=== PATIENT | male | born 1950 | race Caucasian/White ===

== ENCOUNTER 2021-05-06 22:11 | Observation (INO) | payer OTHER ==
[2021-05-07 01:00] LABS: BASO % 0.7 % (0-2.0); EOS % 2.6 % (0-4.5); HEMATOCRIT 27.2 % (35.4-49); HEMOGLOBIN 9.7 GM/dL (11.7-16.9); LYMPH % 16.8 % (8-40); MCH 31.5 pg (25.7-33.7); MCHC 35.7 g/dl (32.0-35.9); MEAN CELL VOLUME 88.2 fl (80-96); MEAN PLT VOLUME 7.3 fl (7.5-11.1); MONO % 11.4 % (3.8-10.2); NEUT % 68.5 % (42.8-82.8); PLATELET COUNT 177 10^3/uL (134-434); RBC 3.08 M/mm3 (4.00-5.60); RDW 14.5 % (11.9-15.9)
[2021-05-07 01:16] LABS: CHLORIDE 99 mmol/L (98-107); SODIUM 134 mmol/L (136-145)
[2021-05-07 01:18] LABS: CALCIUM 9.2 mg/dL (8.5-10.1)
[2021-05-07 01:19] LABS: ALBUMIN 3.3 g/dl (3.4-5.0); ANION GAP 11 MMOL/L (8-16); BLOOD UREA NITROGEN 52.9 mg/dL (7-18); CO2 24 mmol/L (21-32); GLUCOSE,RANDOM 97 mg/dL (74-106); MAGNESIUM 2.6 mg/dL (1.8-2.4)
[2021-05-07] MEDS ORDERED: DEXTROSE 50%-WATER - 25 GM/50 ML VIAL IVPUSH ONE (01:21)
[2021-05-07] MEDS ORDERED: INSULIN REGULAR HUMAN 100 UNITS/ML *VIAL IVPUSH ONE (01:21)
[2021-05-07 01:22] LABS: SGOT/AST 9 U/L (15-37); SGPT/ALT 18 U/L (13-61)
[2021-05-07 01:24] LABS: BILIRUBIN,TOTAL 0.4 mg/dL (0.2-1); TOT PROT 6.7 g/dl (6.4-8.2)
[2021-05-07 01:25] LABS: ALK PHOS 64 U/L (45-117)
[2021-05-07] MEDS ORDERED: DEXTROSE 50%-WATER 25 GM/50 ML DISP.SYRIN ONE (01:33)
[2021-05-07] MEDS ORDERED: INSULIN REGULAR HUMAN 100 UNITS/ML *VIAL ONE (01:34)
[2021-05-07 01:44] LABS: CREATININE 10.5 mg/dL (0.55-1.3)
[2021-05-07 02:51] LABS: INR 0.98 (0.83-1.09); PROTHROMBIN TIME (PATIENT) 12.1 SEC (9.7-13.0)
[2021-05-07 02:54] LABS: ACTIVATED PTT 31.5 SECONDS (25.2-36.5)
[2021-05-07] MEDS ORDERED: FUROSEMIDE 40 MG TABLET (FP) ONE (05:55)
[2021-05-07] MEDS ORDERED: TORSEMIDE 20 MG TABLET (FP) PO SCH (06:00)
[2021-05-07] MEDS: PRIMIDONE 50 MG TABLET PO SCH ×3 (06:16→18:50)
[2021-05-07 06:20] LABS: BASO % 0.8 % (0-2.0); EOS % 2.7 % (0-4.5); HEMATOCRIT 26.7 % (35.4-49); HEMOGLOBIN 9.6 GM/dL (11.7-16.9); LYMPH % 15.9 % (8-40); MCH 31.6 pg (25.7-33.7); MCHC 35.9 g/dl (32.0-35.9); MEAN PLT VOLUME 7.6 fl (7.5-11.1); MONO % 10.8 % (3.8-10.2); NEUT % 69.8 % (42.8-82.8); PLATELET COUNT 173 10^3/uL (134-434); RBC 3.03 M/mm3 (4.00-5.60); RDW 14.3 % (11.9-15.9); WHITE BLOOD COUNT 5.7 K/mm3 (4.0-10.0)
[2021-05-07 06:38] LABS: CHLORIDE 100 mmol/L (98-107); SODIUM 133 mmol/L (136-145)
[2021-05-07 06:40] LABS: ANION GAP 12 MMOL/L (8-16); CALCIUM 8.9 mg/dL (8.5-10.1); CO2 21 mmol/L (21-32)
[2021-05-07 06:41] LABS: BLOOD UREA NITROGEN 54.9 mg/dL (7-18); GLUCOSE,RANDOM 89 mg/dL (74-106)
[2021-05-07 06:58] LABS: CREATININE 10.8 mg/dL (0.55-1.3)
[2021-05-07 08:22] LABS: EPI CELLS 3 /uL (0-25.1); HYALINE CASTS 56 /uL (0-3.1); PH,URINE 8.5 (5.0-8.0); URINE APPEARANCE CLEAR; URINE BACTERIA 2 /uL (0-1359); URINE BILIRUBIN NEGATIVE (NEGATIVE); URINE COLOR YELLOW; URINE GLUCOSE (UA) TRACE (NEGATIVE); URINE KETONE NEGATIVE (NEGATIVE); URINE LEUK ESTERASE TRACE (NEGATIVE); URINE NITRITE NEGATIVE (NEGATIVE); URINE PROTEIN 3+ (NEGATIVE); URINE RBC 6569 /uL (0-23.9); URINE UROBILINOGEN 0.2 mg/dL (0.2-1.0); URINE WBC 24 /uL (0-25.8)
[2021-05-07] MEDS: CARVEDILOL 6.25 MG TABLET (FP) PO SCH ×2 (09:01→21:31)
[2021-05-07] MEDS: TAMSULOSIN HCL 0.4 MG CAP PO SCH ×2 (09:01→21:30)
[2021-05-07] MEDS: CALCIUM ACETATE 667 MG CAPSULE (FP) PO SCH ×3 (09:01→17:10)
[2021-05-07 09:48] VITALS: BMI 31.6
[2021-05-07] MEDS ORDERED: SODIUM CHLORIDE 250 ML IV PRN ×2 (11:07→11:08)
[2021-05-07] MEDS: TORSEMIDE 20 MG TABLET (FP) PO SCH (11:15)
[2021-05-07] MEDS ORDERED: PT OWN MED DRAWER 7, Y5N ONE ×2 (12:32→17:07)
[2021-05-07] MEDS: LISINOPRIL 10 MG TABLET PO SCH (17:09)
[2021-05-07] MEDS ORDERED: MELATONIN 5 MG TABLETS PO SCH (22:00)
[2021-05-08] MEDS ORDERED: PT OWN MED DRAWER 7, Y5N ONE ×3 (05:38→17:00)
[2021-05-08] MEDS: PRIMIDONE 50 MG TABLET PO SCH ×3 (06:00→17:02)
[2021-05-08] MEDS: CALCIUM ACETATE 667 MG CAPSULE (FP) PO SCH ×3 (08:12→17:02)
[2021-05-08] MEDS: TAMSULOSIN HCL 0.4 MG CAP PO SCH (09:11)
[2021-05-08] MEDS: TORSEMIDE 20 MG TABLET (FP) PO SCH (09:11)
[2021-05-08] MEDS: LISINOPRIL 10 MG TABLET PO SCH (09:11)
[2021-05-08] MEDS: CARVEDILOL 6.25 MG TABLET (FP) PO SCH (09:11)
[2021-05-08] MEDS ORDERED: SODIUM CHLORIDE 250 ML IV PRN (12:23)
[2021-05-08 13:30] VITALS: BP 141/67; PULSE 60; TEMP 98.3
[2021-05-08 14:11] LABS: HEMOGLOBIN 9.3 GM/dL (11.7-16.9); MCH 31.1 pg (25.7-33.7); MCHC 34.6 g/dl (32.0-35.9); MEAN CELL VOLUME 89.9 fl (80-96); MEAN PLT VOLUME 7.4 fl (7.5-11.1); PLATELET COUNT 181 10^3/uL (134-434); RDW 14.2 % (11.9-15.9); WHITE BLOOD COUNT 4.5 K/mm3 (4.0-10.0)
[2021-05-08 14:32] LABS: CALCIUM 8.5 mg/dL (8.5-10.1)
[2021-05-08 14:35] LABS: CREATININE 7.2 mg/dL (0.55-1.3)
[2021-05-09] MEDS ORDERED: EPOETIN ALFA-EPBX 10,000 UNIT/ML VIAL IVPUSH ONE (08:00)
== END 2021-05-08 18:49 | disposition home or self-care (01) ==
LOC: JER 22:11 → JERBED 05-07 02:51 → J6S 05-07 08:18
PROVIDERS: ADMIT Internal Medicine; ATTEND Internal Medicine
DX: I13.2 Hypertensive heart and chronic kidney disease with heart failure and with stage 5 chronic kidney disease, or end stage renal disease (principal); G25.2 Other specified forms of tremor; N40.0 Benign prostatic hyperplasia without lower urinary tract symptoms; Z99.2 Dependence on renal dialysis; Z29.9 Encounter for prophylactic measures, unspecified; E66.9 Obesity, unspecified; Z68.31 Body mass index [BMI] 31.0-31.9, adult; N18.6 End stage renal disease; R31.9 Hematuria, unspecified; Z87.448 Personal history of other diseases of urinary system; E87.5 Hyperkalemia; D64.9 Anemia, unspecified; Z86.79 Personal history of other diseases of the circulatory system; I50.9 Heart failure, unspecified
CPT/HCPCS: 36415; 74178-TC; 76775-TC; 76856-TC; 80048; 80053; 81003; 82607; 82728; 82746; 83036; 83540; 83550; 83735; 85025; 85027; 85610; 85730; 86803; 86850; 86900; 86901; 87086; 87340; 93005; 93010; 99285-25; C9803; G0378; Q9967; U0003; U0005

== ENCOUNTER 2021-06-10 22:01 | Inpatient (IN) | payer OTHER ==
[2021-06-10] MEDS ORDERED: LIDOCAINE HCL 2% JELLY 10 ML CARTRIDGE ONE (23:00)
[2021-06-10 23:33] LABS: EOS % 3.8 % (0-4.5); HEMATOCRIT 24.6 % (35.4-49); HEMOGLOBIN 8.5 GM/dL (11.7-16.9); LYMPH % 16.6 % (8-40); MCH 29.6 pg (25.7-33.7); MCHC 34.5 g/dl (32.0-35.9); MEAN PLT VOLUME 7.1 fl (7.5-11.1); MONO % 11.8 % (3.8-10.2); NEUT % 66.8 % (42.8-82.8); PLATELET COUNT 199 10^3/uL (134-434); RBC 2.87 M/mm3 (4.00-5.60); WHITE BLOOD COUNT 5.5 K/mm3 (4.0-10.0)
[2021-06-10 23:39] LABS: PROTHROMBIN TIME (PATIENT) 12.1 SEC (9.7-13.0)
[2021-06-10 23:41] LABS: ACTIVATED PTT 29.8 SECONDS (25.2-36.5)
[2021-06-10 23:48] LABS: EPI CELLS 35 /uL (0-25.1); HYALINE CASTS 1 /uL (0-3.1); URINE APPEARANCE CLOUDY; URINE BACTERIA 74 /uL (0-1359); URINE BILIRUBIN NEGATIVE (NEGATIVE); URINE COLOR YELLOW; URINE GLUCOSE (UA) 1+ (NEGATIVE); URINE KETONE NEGATIVE (NEGATIVE); URINE LEUK ESTERASE 2+ (NEGATIVE); URINE NITRITE NEGATIVE (NEGATIVE); URINE PROTEIN 3+ (NEGATIVE); URINE RBC 1879 /uL (0-23.9); URINE UROBILINOGEN 0.2 mg/dL (0.2-1.0); URINE WBC 305 /uL (0-25.8)
[2021-06-10 23:54] LABS: CHLORIDE 101 mmol/L (98-107); SODIUM 137 mmol/L (136-145)
[2021-06-10 23:58] LABS: ALBUMIN 3.1 g/dl (3.4-5.0); ANION GAP 9 MMOL/L (8-16); BLOOD UREA NITROGEN 50.1 mg/dL (7-18); CO2 27 mmol/L (21-32); GLUCOSE,RANDOM 137 mg/dL (74-106)
[2021-06-11 00:01] LABS: SGOT/AST 13 U/L (15-37); SGPT/ALT 17 U/L (13-61)
[2021-06-11 00:02] LABS: BILIRUBIN,TOTAL 0.4 mg/dL (0.2-1); TOT PROT 6.6 g/dl (6.4-8.2)
[2021-06-11 00:03] LABS: ALK PHOS 79 U/L (45-117)
[2021-06-11 00:12] LABS: CREATININE 9.2 mg/dL (0.55-1.3)
[2021-06-11] MEDS ORDERED: CEFTRIAXONE 1,500 MG in DEXTROSE 5%-WATER - 50 ML IVPB ONE (01:19)
[2021-06-11] MEDS ORDERED: CARVEDILOL 6.25 MG TABLET (FP) PO ONE (05:33)
[2021-06-11] MEDS ORDERED: LISINOPRIL 10 MG TABLET PO ONE (05:34)
[2021-06-11 05:42] VITALS: BMI 30.4
[2021-06-11] MEDS ORDERED: SODIUM CHLORIDE 250 ML IV PRN (08:49)
[2021-06-11] MEDS ORDERED: cefTRIAXone SODIUM 1 GM VIAL ONE (08:55)
[2021-06-11] MEDS ORDERED: DEXTROSE 5%-WATER - 50 ML IVPB ONE (08:56)
[2021-06-11] MEDS: CARVEDILOL 6.25 MG TABLET (FP) PO SCH ×3 (09:07→21:11)
[2021-06-11] MEDS: LISINOPRIL 10 MG TABLET PO SCH ×2 (09:08→11:00)
[2021-06-11] MEDS: CALCIUM ACETATE 667 MG CAPSULE (FP) PO SCH ×3 (09:08→18:11)
[2021-06-11] MEDS: CEFTRIAXONE 1 GM in DEXTROSE 5%-WATER - 50 ML IVPB SCH (09:08)
[2021-06-11 09:54] LABS: BASO % 0.8 % (0-2.0); HEMATOCRIT 27.4 % (35.4-49); HEMOGLOBIN 9.5 GM/dL (11.7-16.9); LYMPH % 8.9 % (8-40); MCH 30.3 pg (25.7-33.7); MCHC 34.7 g/dl (32.0-35.9); MEAN CELL VOLUME 87.3 fl (80-96); MEAN PLT VOLUME 7.7 fl (7.5-11.1); MONO % 8.7 % (3.8-10.2); NEUT % 79.6 % (42.8-82.8); PLATELET COUNT 212 10^3/uL (134-434); RBC 3.14 M/mm3 (4.00-5.60); RDW 14.5 % (11.9-15.9); WHITE BLOOD COUNT 7.9 K/mm3 (4.0-10.0)
[2021-06-11] MEDS ORDERED: TAMSULOSIN HCL 0.4 MG CAP PO SCH (10:00)
[2021-06-11] MEDS ORDERED: TORSEMIDE 20 MG TABLET (FP) PO SCH (10:00)
[2021-06-11 10:18] LABS: CHLORIDE 101 mmol/L (98-107); SODIUM 135 mmol/L (136-145)
[2021-06-11 10:22] LABS: BLOOD UREA NITROGEN 53.6 mg/dL (7-18)
[2021-06-11 10:23] LABS: CALCIUM 8.8 mg/dL (8.5-10.1); GLUCOSE,RANDOM 112 mg/dL (74-106)
[2021-06-11 10:24] LABS: ANION GAP 13 MMOL/L (8-16); CO2 22 mmol/L (21-32)
[2021-06-11 10:31] LABS: CREATININE 9.9 mg/dL (0.55-1.3)
[2021-06-11] MEDS: TAMSULOSIN HCL 0.4 MG CAP PO SCH (21:10)
[2021-06-11] MEDS: MELATONIN 5 MG TABLETS PO SCH (21:11)
[2021-06-11] MEDS: TORSEMIDE 20 MG TABLET (FP) PO SCH (21:11)
[2021-06-12] MEDS: TORSEMIDE 20 MG TABLET (FP) PO SCH ×3 (07:33→10:38)
[2021-06-12 08:05] LABS: BASO % 0.9 % (0-2.0); EOS % 2.6 % (0-4.5); HEMATOCRIT 23.4 % (35.4-49); HEMOGLOBIN 8.2 GM/dL (11.7-16.9); LYMPH % 15.2 % (8-40); MEAN CELL VOLUME 85.7 fl (80-96); MEAN PLT VOLUME 7.2 fl (7.5-11.1); MONO % 13.3 % (3.8-10.2); PLATELET COUNT 170 10^3/uL (134-434); RBC 2.73 M/mm3 (4.00-5.60); RDW 14.6 % (11.9-15.9); WHITE BLOOD COUNT 5.5 K/mm3 (4.0-10.0)
[2021-06-12] MEDS: CALCIUM ACETATE 667 MG CAPSULE (FP) PO SCH ×3 (08:24→17:24)
[2021-06-12] MEDS: TAMSULOSIN HCL 0.4 MG CAP PO SCH ×2 (08:24→21:03)
[2021-06-12 08:25] LABS: BLOOD UREA NITROGEN 32.8 mg/dL (7-18); CALCIUM 8.7 mg/dL (8.5-10.1)
[2021-06-12 08:28] LABS: CREATININE 6.7 mg/dL (0.55-1.3)
[2021-06-12] MEDS ORDERED: DEXTROSE 5%-WATER - 50 ML IVPB ONE (10:34)
[2021-06-12] MEDS ORDERED: PT OWN MED DRAWER 7, Y5N ONE (10:34)
[2021-06-12] MEDS ORDERED: cefTRIAXone SODIUM 1 GM VIAL ONE (10:34)
[2021-06-12] MEDS: CARVEDILOL 6.25 MG TABLET (FP) PO SCH ×2 (10:37→21:03)
[2021-06-12] MEDS: CEFTRIAXONE 1 GM in DEXTROSE 5%-WATER - 50 ML IVPB SCH (10:38)
[2021-06-12] MEDS: LISINOPRIL 10 MG TABLET PO SCH (10:38)
[2021-06-12] MEDS ORDERED: IRON SUCROSE INJECTION 200 MG in SODIUM CHLORIDE 90 ML IVPB ONE (17:37)
[2021-06-12] MEDS: MELATONIN 5 MG TABLETS PO SCH (21:03)
[2021-06-13] MEDS: TAMSULOSIN HCL 0.4 MG CAP PO SCH (08:36)
[2021-06-13] MEDS: CALCIUM ACETATE 667 MG CAPSULE (FP) PO SCH ×2 (08:36→13:17)
[2021-06-13] MEDS ORDERED: SODIUM CHLORIDE 250 ML IV PRN (09:59)
[2021-06-13] MEDS ORDERED: EPOETIN ALFA-EPBX 20,000 UNIT/ML VIAL IVPUSH ONE (10:00)
[2021-06-13 10:42] LABS: MCH 29.8 pg (25.7-33.7); MCHC 34.7 g/dl (32.0-35.9); MEAN PLT VOLUME 7.6 fl (7.5-11.1); PLATELET COUNT 174 10^3/uL (134-434); RBC 2.68 M/mm3 (4.00-5.60); RDW 14.4 % (11.9-15.9); WHITE BLOOD COUNT 5.5 K/mm3 (4.0-10.0)
[2021-06-13] MEDS: CARVEDILOL 6.25 MG TABLET (FP) PO SCH (10:55)
[2021-06-13] MEDS: LISINOPRIL 10 MG TABLET PO SCH (11:00)
[2021-06-13 11:07] LABS: GLUCOSE,RANDOM 166 mg/dL (74-106)
[2021-06-13 11:10] LABS: CALCIUM 8.7 mg/dL (8.5-10.1)
[2021-06-13 11:11] LABS: BLOOD UREA NITROGEN 52.1 mg/dL (7-18); CO2 26 mmol/L (21-32)
[2021-06-13 11:36] LABS: ANION GAP 12 MMOL/L (8-16); CHLORIDE 98 mmol/L (98-107); CREATININE 8.8 mg/dL (0.55-1.3); SODIUM 135 mmol/L (136-145)
[2021-06-13] MEDS ORDERED: PT OWN MED DRAWER 7, Y5N ONE (13:13)
[2021-06-13] MEDS ORDERED: cefTRIAXone SODIUM 1 GM VIAL ONE (13:14)
[2021-06-13] MEDS ORDERED: DEXTROSE 5%-WATER - 50 ML IVPB ONE (13:14)
[2021-06-13] MEDS: TORSEMIDE 20 MG TABLET (FP) PO SCH (13:17)
[2021-06-13] MEDS: CEFTRIAXONE 1 GM in DEXTROSE 5%-WATER - 50 ML IVPB SCH (13:18)
[2021-06-13 14:14] VITALS: BP 108/65; PULSE 70; TEMP 98.1
== END 2021-06-13 15:00 | disposition home or self-care (01) | DRG 725 ==
LOC: JER 22:01 → JERBED 06-11 00:35 → OBSVTOIN 06-11 02:17 → J5S 06-11 05:12
PROVIDERS: ADMIT Internal Medicine; ATTEND Family Medicine
PROC: 5A1D70Z Performance of Urinary Filtration, Intermittent, Less than 6 Hours Per Day (ICD-10-PCS; principal; 2021-06-13)
DX: N40.1 Benign prostatic hyperplasia with lower urinary tract symptoms (principal); N18.6 End stage renal disease; I13.2 Hypertensive heart and chronic kidney disease with heart failure and with stage 5 chronic kidney disease, or end stage renal disease; N39.0 Urinary tract infection, site not specified; I50.32 Chronic diastolic (congestive) heart failure; N17.9 Acute kidney failure, unspecified; D09.0 Carcinoma in situ of bladder; R33.9 Retention of urine, unspecified; Z99.2 Dependence on renal dialysis; D64.9 Anemia, unspecified; R31.0 Gross hematuria; N25.0 Renal osteodystrophy
CPT/HCPCS: 36415; 71045-TC-FY; 80048; 80053; 81003; 82728; 83540; 83550; 83880; 84484; 85025; 85027; 85610; 85730; 86803; 86850; 86900; 86901; 87086; 87340; 93005; 93010; 93970-TC; 97116-GP; 97162-GP; 99285-25; C9803; G0378; J1756; U0003; U0005

== ENCOUNTER 2021-06-18 05:31 | Emergency (ER) | payer OTHER ==
[2021-06-18 05:41] VITALS: BP 190/76; PULSE 92; TEMP 97.9; BMI 27.3
[2021-06-18] MEDS ORDERED: KETOROLAC TROMETHAMINE 30 MG/1 ML VIAL IVPUSH ONE (07:02)
[2021-06-18] MEDS ORDERED: KETOROLAC TROMETHAMINE 15 MG/ML VIAL ONE (07:48)
[2021-06-18] MEDS ORDERED: ACETAMINOPHEN 1000 MG/100 ML VIAL IVPB ONE (07:48)
[2021-06-18] MEDS ORDERED: ACETAMINOPHEN INJECTION 100 ML IVPB ONE (07:50)
[2021-06-18 08:17] LABS: BASO % 1.2 % (0-2.0); EOS % 3.9 % (0-4.5); HEMATOCRIT 25.9 % (35.4-49); HEMOGLOBIN 9.2 GM/dL (11.7-16.9); LYMPH % 12.2 % (8-40); MCH 30.2 pg (25.7-33.7); MCHC 35.4 g/dl (32.0-35.9); MEAN CELL VOLUME 85.3 fl (80-96); MEAN PLT VOLUME 7.2 fl (7.5-11.1); MONO % 8.4 % (3.8-10.2); NEUT % 74.3 % (42.8-82.8); PLATELET COUNT 249 10^3/uL (134-434); RBC 3.04 M/mm3 (4.00-5.60); RDW 14.4 % (11.9-15.9); WHITE BLOOD COUNT 6.8 K/mm3 (4.0-10.0)
[2021-06-18 08:35] LABS: CHLORIDE 100 mmol/L (98-107); SODIUM 135 mmol/L (136-145)
[2021-06-18 08:36] LABS: CALCIUM 9.3 mg/dL (8.5-10.1)
[2021-06-18 08:37] LABS: ALBUMIN 3.2 g/dl (3.4-5.0); ANION GAP 10 MMOL/L (8-16); BLOOD UREA NITROGEN 51.1 mg/dL (7-18); CO2 25 mmol/L (21-32); GLUCOSE,RANDOM 95 mg/dL (74-106)
[2021-06-18 08:40] LABS: SGOT/AST 14 U/L (15-37); SGPT/ALT 20 U/L (13-61)
[2021-06-18 08:41] LABS: BILIRUBIN,TOTAL 0.5 mg/dL (0.2-1)
[2021-06-18 08:42] LABS: TOT PROT 7.1 g/dl (6.4-8.2)
[2021-06-18 08:43] LABS: ALK PHOS 90 U/L (45-117)
[2021-06-18 08:51] LABS: CREATININE 9.8 mg/dL (0.55-1.3)
[2021-06-18 10:17] LABS: EPI CELLS 8 /uL (0-25.1); HYALINE CASTS 4 /uL (0-3.1); PH,URINE 8.5 (5.0-8.0); URINE APPEARANCE CLOUDY; URINE BACTERIA 208 /uL (0-1359); URINE BILIRUBIN NEGATIVE (NEGATIVE); URINE COLOR YELLOW; URINE GLUCOSE (UA) TRACE (NEGATIVE); URINE KETONE NEGATIVE (NEGATIVE); URINE LEUK ESTERASE 2+ (NEGATIVE); URINE NITRITE NEGATIVE (NEGATIVE); URINE PROTEIN 3+ (NEGATIVE); URINE RBC 579 /uL (0-23.9); URINE UROBILINOGEN 0.2 mg/dL (0.2-1.0); URINE WBC 822 /uL (0-25.8)
== END 2021-06-18 11:40 ==
LOC: JER 05:31
PROC: 3E033GC Introduction of Other Therapeutic Substance into Peripheral Vein, Percutaneous Approach (ICD-10-PCS; principal; 2021-06-18)
DX: N48.89 Other specified disorders of penis (principal)
CPT/HCPCS: 36415; 80053; 81003; 85025; 87086; 93005; 93010; 96374; 99284-25; J0131

== ENCOUNTER 2021-06-20 05:33 | Emergency (ER) | payer OTHER ==
[2021-06-20 05:54] VITALS: TEMP 97.5; BMI 27.3
[2021-06-20 06:25] LABS: BASO % 1.3 % (0-2.0); EOS % 3.1 % (0-4.5); HEMATOCRIT 26.6 % (35.4-49); HEMOGLOBIN 9.2 GM/dL (11.7-16.9); LYMPH % 18.4 % (8-40); MCHC 34.6 g/dl (32.0-35.9); MEAN CELL VOLUME 86.7 fl (80-96); MEAN PLT VOLUME 7.7 fl (7.5-11.1); MONO % 10.7 % (3.8-10.2); NEUT % 66.5 % (42.8-82.8); PLATELET COUNT 235 10^3/uL (134-434); RBC 3.07 M/mm3 (4.00-5.60); RDW 14.8 % (11.9-15.9); WHITE BLOOD COUNT 5.5 K/mm3 (4.0-10.0)
[2021-06-20 06:28] LABS: EPI CELLS >36 /uL (0-25.1); HYALINE CASTS 0 /uL (0-3.1); PH,URINE >= 9.0 (5.0-8.0); URINE APPEARANCE CLOUDY; URINE BACTERIA 17 /uL (0-1359); URINE BILIRUBIN NEGATIVE (NEGATIVE); URINE COLOR RED; URINE GLUCOSE (UA) TRACE (NEGATIVE); URINE KETONE NEGATIVE (NEGATIVE); URINE LEUK ESTERASE 2+ (NEGATIVE); URINE NITRITE NEGATIVE (NEGATIVE); URINE PROTEIN 3+ (NEGATIVE); URINE RBC 16293 /uL (0-23.9); URINE WBC 351 /uL (0-25.8)
[2021-06-20 06:43] LABS: CHLORIDE 105 mmol/L (98-107); SODIUM 138 mmol/L (136-145)
[2021-06-20 06:45] LABS: CALCIUM 9.4 mg/dL (8.5-10.1)
[2021-06-20 06:46] LABS: ANION GAP 12 MMOL/L (8-16); BLOOD UREA NITROGEN 38.2 mg/dL (7-18); CO2 22 mmol/L (21-32); GLUCOSE,RANDOM 101 mg/dL (74-106)
[2021-06-20 06:49] LABS: SGOT/AST 18 U/L (15-37); SGPT/ALT 18 U/L (13-61)
[2021-06-20 06:51] LABS: BILIRUBIN,TOTAL 0.4 mg/dL (0.2-1)
[2021-06-20 06:52] LABS: ALK PHOS 94 U/L (45-117)
[2021-06-20 06:54] LABS: CREATININE 8.5 mg/dL (0.55-1.3)
[2021-06-20 10:12] VITALS: BP 199/89; PULSE 89
== END 2021-06-20 10:16 | disposition home or self-care (01) ==
LOC: JER 05:33
DX: R33.9 Retention of urine, unspecified (principal); Z96.0 Presence of urogenital implants
CPT/HCPCS: 36415; 80053; 81003; 85025; 87086; 93005; 93010; 99284-25

== ENCOUNTER 2021-07-08 11:01 | Emergency (ER) | payer OTHER ==
[2021-07-08 11:16] VITALS: TEMP 98; BMI 28.8
[2021-07-08] MEDS ORDERED: LIDOCAINE HCL 2% JELLY 10 ML CARTRIDGE UR ONE (12:05)
[2021-07-08] MEDS ORDERED: LIDOCAINE HCL 2% JELLY 10 ML CARTRIDGE ONE (12:08)
[2021-07-08 14:53] VITALS: BP 129/86; PULSE 86
== END 2021-07-08 14:20 | disposition home or self-care (01) ==
LOC: JER 11:01
DX: N48.29 Other inflammatory disorders of penis (principal)
CPT/HCPCS: 99283-25

== ENCOUNTER 2021-08-09 10:50 | Emergency (ER) | payer OTHER ==
[2021-08-09 11:13] VITALS: BP 137/48; PULSE 69; TEMP 98.3; BMI 32.3
[2021-08-09 13:36] LABS: BASO % 0.8 % (0-2.0); HEMOGLOBIN 9.4 GM/dL (11.7-16.9); LYMPH % 14.6 % (8-40); MCH 28.5 pg (25.7-33.7); MCHC 33.5 g/dl (32.0-35.9); MEAN CELL VOLUME 85.1 fl (80-96); MEAN PLT VOLUME 7.5 fl (7.5-11.1); MONO % 10.5 % (3.8-10.2); NEUT % 71.1 % (42.8-82.8); PLATELET COUNT 164 10^3/uL (134-434); RBC 3.29 M/mm3 (4.00-5.60); WHITE BLOOD COUNT 6.5 K/mm3 (4.0-10.0)
[2021-08-09 13:44] LABS: INR 1.04 (0.83-1.09); PROTHROMBIN TIME (PATIENT) 12.2 SEC (9.7-13.0)
[2021-08-09 13:57] LABS: CALCIUM 7.3 mg/dL (8.5-10.1)
[2021-08-09 13:58] LABS: ALBUMIN 3.1 g/dl (3.4-5.0)
[2021-08-09 14:01] LABS: CREATININE 6.4 mg/dL (0.55-1.3)
[2021-08-09 14:03] LABS: BILIRUBIN,TOTAL 0.3 mg/dL (0.2-1); TOT PROT 6.6 g/dl (6.4-8.2)
[2021-08-09 14:18] LABS: BLOOD UREA NITROGEN 36.3 mg/dL (7-18)
[2021-08-09 14:52] LABS: EPI CELLS 29 /uL (0-25.1); HYALINE CASTS 13 /uL (0-3.1); URINE APPEARANCE TURBID; URINE BILIRUBIN 2+ (NEGATIVE); URINE COLOR RED; URINE GLUCOSE (UA) NEGATIVE (NEGATIVE); URINE PROTEIN 3+ (NEGATIVE); URINE RBC 45524 /uL (0-23.9); URINE WBC 44 /uL (0-25.8)
[2021-08-09 15:01] LABS: URINE BACTERIA 0 /uL (0-1359); URINE KETONE NEGATIVE (NEGATIVE); URINE UROBILINOGEN 0.2 mg/dL (0.2-1.0)
[2021-08-09 15:02] LABS: URINE LEUK ESTERASE 3+ (NEGATIVE); URINE NITRITE POSITIVE (NEGATIVE)
== END 2021-08-09 16:11 | disposition left against medical advice (07) ==
LOC: JER 10:50
DX: R31.9 Hematuria, unspecified (principal)
CPT/HCPCS: 36415; 80053; 81003; 85025; 85610; 85730; 87086; 99283-25; C9803; U0003; U0005

== ENCOUNTER 2022-04-22 11:00 | Inpatient (IN) | payer OTHER ==
[2022-04-22 12:37] LABS: BASO % 0.7 % (0-2.0); EOS % 2.3 % (0-4.5); HEMATOCRIT 41.3 % (35.4-49); HEMOGLOBIN 13.9 GM/dL (11.7-16.9); LYMPH % 12.7 % (8-40); MCHC 33.7 g/dl (32.0-35.9); MEAN CELL VOLUME 86.2 fl (80-96); MEAN PLT VOLUME 7.2 fl (7.5-11.1); MONO % 9.9 % (3.8-10.2); NEUT % 74.4 % (42.8-82.8); PLATELET COUNT 188 10^3/uL (134-434); RBC 4.79 M/mm3 (4.00-5.60); RDW 15.8 % (11.9-15.9); WHITE BLOOD COUNT 8.3 K/mm3 (4.0-10.0)
[2022-04-22 12:55] LABS: CHLORIDE 96 mmol/L (98-107); SODIUM 129 mmol/L (136-145)
[2022-04-22 12:58] LABS: CALCIUM 10.3 mg/dL (8.5-10.1)
[2022-04-22 12:59] LABS: ALBUMIN 3.9 g/dl (3.4-5.0); BLOOD UREA NITROGEN 85.2 mg/dL (7-18); CO2 19 mmol/L (21-32); GLUCOSE,RANDOM 96 mg/dL (74-106)
[2022-04-22 13:03] LABS: SGOT/AST 14 U/L (15-37); SGPT/ALT 26 U/L (13-61)
[2022-04-22 13:06] LABS: BILIRUBIN,TOTAL 0.5 mg/dL (0.2-1); TOT PROT 7.4 g/dl (6.4-8.2)
[2022-04-22 13:07] LABS: ALK PHOS 72 U/L (45-117)
[2022-04-22 13:10] LABS: ANION GAP 15 MMOL/L (8-16); CREATININE 11.3 mg/dL (0.55-1.3)
[2022-04-22] MEDS ORDERED: CALCIUM GLUCONATE 10% - 1,000 MG/10 ML VIAL IVPUSH ONE (13:13)
[2022-04-22] MEDS ORDERED: DEXTROSE 50%-WATER - 25 GM/50 ML VIAL IVPUSH ONE ×2 (13:16→15:30)
[2022-04-22] MEDS ORDERED: INSULIN REGULAR HUMAN 100 UNITS/ML *VIAL IVPUSH ONE (13:18)
[2022-04-22] MEDS ORDERED: DEXTROSE 50%-WATER 25 GM/50 ML DISP.SYRIN ONE ×2 (13:28→15:27)
[2022-04-22] MEDS ORDERED: CALCIUM GLUCONATE 10% - 1,000 MG/10 ML VIAL ONE (13:29)
[2022-04-22] MEDS ORDERED: ACETAMINOPHEN 1000 MG/100 ML BAG IVPB ONE (13:50)
[2022-04-22] MEDS ORDERED: ACETAMINOPHEN INJECTION 100 ML IVPB ONE (13:52)
[2022-04-22] MEDS ORDERED: SODIUM CHLORIDE 250 ML IV PRN (15:09)
[2022-04-22] MEDS ORDERED: SODIUM POLYSTYRENE SULFONATE 15 GM/60 ML BOTTLE PO ONE (15:13)
[2022-04-22 16:35] LABS: CHLORIDE 97 mmol/L (98-107); SODIUM 132 mmol/L (136-145)
[2022-04-22 16:37] LABS: CALCIUM 10.5 mg/dL (8.5-10.1); CO2 19 mmol/L (21-32)
[2022-04-22 16:38] LABS: BLOOD UREA NITROGEN 89.9 mg/dL (7-18); GLUCOSE,RANDOM 55 mg/dL (74-106)
[2022-04-22 16:48] LABS: ANION GAP 16 MMOL/L (8-16); CREATININE 11.7 mg/dL (0.55-1.3)
[2022-04-22] MEDS ORDERED: SODIUM POLYSTYRENE SULFONATE 15 GM/60 ML BOTTLE ONE (16:50)
[2022-04-22] MEDS ORDERED: MELATONIN 5 MG TABLETS PO PRN (18:36)
[2022-04-22] MEDS: CARVEDILOL 25 MG TABLET (FP) PO SCH (23:03)
[2022-04-22] MEDS: PRIMIDONE 50 MG TABLET PO SCH (23:04)
[2022-04-23] MEDS: PRIMIDONE 50 MG TABLET PO SCH ×3 (06:22→21:49)
[2022-04-23] MEDS ORDERED: SODIUM CHLORIDE 250 ML IV PRN ×2 (07:34→12:31)
[2022-04-23] MEDS: CALCIUM ACETATE 667 MG CAPSULE (FP) PO SCH ×3 (09:15→17:05)
[2022-04-23] MEDS ORDERED: LISINOPRIL 10 MG TABLET PO SCH (10:00)
[2022-04-23 10:30] VITALS: BMI 27.7
[2022-04-23] MEDS: TAMSULOSIN HCL 0.4 MG CAP PO SCH ×2 (11:40→16:28)
[2022-04-23] MEDS: TORSEMIDE 20 MG TABLET (FP) PO SCH ×2 (11:41→16:27)
[2022-04-23] MEDS: CARVEDILOL 25 MG TABLET (FP) PO SCH ×3 (11:41→21:49)
[2022-04-23] MEDS: GABAPENTIN 100 MG CAPSULE PO SCH ×3 (11:41→21:48)
[2022-04-23] MEDS: ACETAMINOPHEN 325 MG TABLET (FP) PO PRN ×2 (11:48→17:17)
[2022-04-23] MEDS: hydrALAZINE HCL 25 MG TABLET (FP) PO SCH ×2 (13:33→21:49)
[2022-04-23 14:14] LABS: CREATININE 6.3 mg/dL (0.55-1.3)
[2022-04-23 14:19] LABS: BLOOD UREA NITROGEN 36.6 mg/dL (7-18); CALCIUM 8.6 mg/dL (8.5-10.1)
[2022-04-24 00:09] VITALS: RESP 18
[2022-04-24] MEDS: PRIMIDONE 50 MG TABLET PO SCH ×2 (05:49→14:18)
[2022-04-24] MEDS: hydrALAZINE HCL 25 MG TABLET (FP) PO SCH ×2 (05:49→14:18)
[2022-04-24] MEDS: TAMSULOSIN HCL 0.4 MG CAP PO SCH (08:15)
[2022-04-24] MEDS: CALCIUM ACETATE 667 MG CAPSULE (FP) PO SCH ×3 (08:15→16:57)
[2022-04-24] MEDS: CARVEDILOL 25 MG TABLET (FP) PO SCH (09:59)
[2022-04-24] MEDS: GABAPENTIN 100 MG CAPSULE PO SCH (10:00)
[2022-04-24] MEDS: TORSEMIDE 20 MG TABLET (FP) PO SCH (10:00)
[2022-04-24 11:19] LABS: CHLORIDE 98 mmol/L (98-107); SODIUM 134 mmol/L (136-145)
[2022-04-24 11:20] LABS: CALCIUM 8.4 mg/dL (8.5-10.1)
[2022-04-24 11:21] LABS: ANION GAP 9 MMOL/L (8-16); BLOOD UREA NITROGEN 46.1 mg/dL (7-18); CO2 28 mmol/L (21-32); GLUCOSE,RANDOM 173 mg/dL (74-106)
[2022-04-24 11:26] LABS: CREATININE 7.5 mg/dL (0.55-1.3)
[2022-04-24 15:35] VITALS: BP 156/78; PULSE 66; TEMP 98
[2022-04-24] MEDS: ACETAMINOPHEN 325 MG TABLET (FP) PO PRN (15:45)
== END 2022-04-24 18:42 | disposition home or self-care (01) | DRG 551 ==
LOC: JER 11:00 → JERBED 15:47 → J4W 19:27
PROVIDERS: ADMIT Family Medicine; ATTEND Family Medicine
PROC: 5A1D70Z Performance of Urinary Filtration, Intermittent, Less than 6 Hours Per Day (ICD-10-PCS; principal; 2022-04-22)
PROC: 5A1D70Z Performance of Urinary Filtration, Intermittent, Less than 6 Hours Per Day (ICD-10-PCS; 2022-04-23)
PROC: 5A1D70Z Performance of Urinary Filtration, Intermittent, Less than 6 Hours Per Day (ICD-10-PCS; 2022-04-24)
DX: M48.061 Spinal stenosis, lumbar region without neurogenic claudication (principal); N18.6 End stage renal disease; I13.2 Hypertensive heart and chronic kidney disease with heart failure and with stage 5 chronic kidney disease, or end stage renal disease; M54.30 Sciatica, unspecified side; N40.0 Benign prostatic hyperplasia without lower urinary tract symptoms; E87.5 Hyperkalemia; M54.9 Dorsalgia, unspecified; E11.22 Type 2 diabetes mellitus with diabetic chronic kidney disease; I50.9 Heart failure, unspecified; M54.16 Radiculopathy, lumbar region; R26.81 Unsteadiness on feet; R53.1 Weakness; Z91.11 Patient's noncompliance with dietary regimen; Z99.2 Dependence on renal dialysis; Z85.51 Personal history of malignant neoplasm of bladder
CPT/HCPCS: 0241U-QW; 36415; 70450-TC; 71046-TC-FY; 72148-TC; 80048; 80053; 82550; 82962; 84443; 84484; 85025; 86803; 87340; 93005; 93010; 93990-TC; 97116-GP; 97162-GP; 99291

== ENCOUNTER 2023-07-09 12:51 | Inpatient (IN) | payer OTHER ==
[2023-07-09] MEDS ORDERED: ACETAMINOPHEN 1000 MG/100 ML BAG IVPB ONE (13:34)
[2023-07-09] MEDS ORDERED: PIPERACILLIN/TAZOB 4.5 GM 4.5 GM in DEXTROSE 5%-WATER 100 ML IVPB ONE (13:34)
[2023-07-09] MEDS ORDERED: VANCOMYCIN 1,000 MG in DEXTROSE 5%-WATER - 250 ML IVPB ONE (13:34)
[2023-07-09 13:39] VITALS: BMI 24.7
[2023-07-09] MEDS ORDERED: ACETAMINOPHEN INJECTION 100 ML IVPB ONE (13:43)
[2023-07-09] MEDS ORDERED: PIPERACILLIN/TAZOB 4.5 GM 4.5 GM/100 ML BAG IVPB ONE (13:43)
[2023-07-09] MEDS ORDERED: VANCOMYCIN 1 GRAM (PRE-DOCKED) 1,000 MG/250 ML BAG IVPB ONE (13:44)
[2023-07-09 14:56] LABS: BASO % 0.2 % (0-2.0); HEMATOCRIT 36.2 % (35.4-49); HEMOGLOBIN 11.7 GM/dL (11.7-16.9); LYMPH % 5.6 % (8-40); MCH 27.3 pg (25.7-33.7); MCHC 32.2 g/dl (32.0-35.9); MEAN CELL VOLUME 84.9 fl (80-96); MEAN PLT VOLUME 7.7 fl (7.5-11.1); MONO % 5.6 % (3.8-10.2); NEUT % 88.6 % (42.8-82.8); PLATELET COUNT 163 10^3/uL (134-434); RBC 4.26 M/mm3 (4.00-5.60); RDW 21.2 % (11.9-15.9); WHITE BLOOD COUNT 11.4 K/mm3 (4.0-10.0)
[2023-07-09 15:01] LABS: INR 1.32 (0.83-1.09); PROTHROMBIN TIME (PATIENT) 15.3 SEC (9.7-13.0)
[2023-07-09] MEDS ORDERED: QUEtiapine FUMARATE 25 MG TABLET ONE (15:01)
[2023-07-09] MEDS ORDERED: QUEtiapine FUMARATE 50 MG TABLET PO ONE (15:01)
[2023-07-09 15:04] LABS: ACTIVATED PTT 37.2 SECONDS (25.2-36.5)
[2023-07-09 15:12] LABS: CHLORIDE 103 mmol/L (98-107); SODIUM 135 mmol/L (136-145)
[2023-07-09 15:14] LABS: ALBUMIN 3.3 g/dl (3.4-5.0); ANION GAP 9 mmol/L (4-13); CALCIUM 9.5 mg/dL (8.5-10.1); CO2 24 mmol/L (21-32); GLUCOSE,RANDOM 81 mg/dL (74-106)
[2023-07-09 15:15] LABS: BLOOD UREA NITROGEN 44.6 mg/dL (7-18); LIPASE 13 U/L (73-393)
[2023-07-09 15:17] LABS: SGOT/AST 33 U/L (15-37); SGPT/ALT 16 U/L (13-61)
[2023-07-09 15:19] LABS: TOT PROT 7.7 g/dl (6.4-8.2)
[2023-07-09 15:20] LABS: ALK PHOS 204 U/L (45-117)
[2023-07-09 15:21] LABS: ANISOCYTOSIS 2+; LDH 276 U/L (87-246); MACROCYTOSIS 1+
[2023-07-09 15:35] LABS: LACTIC ACID 2.3 mmol/L (0.4-2.0)
[2023-07-09 15:45] LABS: CREATININE 8.3 mg/dL (0.55-1.3); N-TERMINAL BNP > 35000.0 pg/ml (5-450)
[2023-07-09 19:02] LABS: EPI CELLS >36 /uL (0-25.1); HYALINE CASTS 33 /uL (0-3.1); URINE APPEARANCE TURBID; URINE BACTERIA >9,000 /uL (0-1359); URINE BILIRUBIN NEGATIVE (NEGATIVE); URINE COLOR YELLOW; URINE GLUCOSE (UA) NEGATIVE (NEGATIVE); URINE KETONE NEGATIVE (NEGATIVE); URINE LEUK ESTERASE 3+ (NEGATIVE); URINE NITRITE NEGATIVE (NEGATIVE); URINE PROTEIN 3+ (NEGATIVE); URINE UROBILINOGEN 0.2 mg/dL (0.2-1.0); URINE WBC 3437 /uL (0-25.8)
[2023-07-09] MEDS ORDERED: ACETAMINOPHEN 325 MG TABLET (FP) PO PRN (20:23)
[2023-07-09] MEDS ORDERED: MELATONIN 5 MG TABLETS PO PRN (21:04)
[2023-07-09 21:33] LABS: URINE RBC 301.5 /uL (0-23.9); YEAST NEGATIVE (NEGATIVE)
[2023-07-09] MEDS ORDERED: ACETAMINOPHEN 325 MG TABLET (FP) ONE (21:44)
[2023-07-09] MEDS ORDERED: CARVEDILOL 25 MG TABLET (FP) PO SCH (22:00)
[2023-07-09] MEDS ORDERED: CARVEDILOL 25 MG TABLET (FP) ONE (22:19)
[2023-07-09] MEDS ORDERED: TAMSULOSIN HCL 0.4 MG CAP ONE (22:19)
[2023-07-09] MEDS ORDERED: hydrALAZINE HCL 25 MG TABLET (FP) ONE (22:19)
[2023-07-09] MEDS ORDERED: GABAPENTIN 100 MG CAPSULE ONE (22:19)
[2023-07-09] MEDS: TAMSULOSIN HCL 0.4 MG CAP PO SCH (22:30)
[2023-07-09] MEDS: PRIMIDONE 50 MG TABLET PO SCH (22:30)
[2023-07-09] MEDS: GABAPENTIN 100 MG CAPSULE PO SCH (22:30)
[2023-07-09] MEDS: hydrALAZINE HCL 25 MG TABLET (FP) PO SCH (22:30)
[2023-07-10] MEDS ORDERED: SODIUM CHLORIDE 0.9% 500 ML INFUS.BAG IV ONE (00:54)
[2023-07-10] MEDS: PIPERACILLIN/TAZOB 2.25 GM 2.25 GM in DEXTROSE 5%-WATER - 50 ML IVPB SCH ×3 (01:28→17:40)
[2023-07-10] MEDS ORDERED: PIPERACILLIN/TAZOB 4.5 GM 3.375 GM in DEXTROSE 5%-WATER 100 ML IVPB SCH (02:00)
[2023-07-10] MEDS ORDERED: PIPERACILLIN/TAZOB 4.5 GM 4.5 GM in DEXTROSE 5%-WATER 100 ML IVPB SCH (02:00)
[2023-07-10] MEDS: hydrALAZINE HCL 25 MG TABLET (FP) PO SCH (05:50)
[2023-07-10] MEDS: PRIMIDONE 50 MG TABLET PO SCH ×3 (06:53→22:49)
[2023-07-10] MEDS ORDERED: SODIUM CHLORIDE 250 ML IV PRN ×2 (08:30→13:08)
[2023-07-10] MEDS: TAMSULOSIN HCL 0.4 MG CAP PO SCH ×2 (09:58→22:29)
[2023-07-10] MEDS: GABAPENTIN 100 MG CAPSULE PO SCH ×2 (09:58→22:29)
[2023-07-10] MEDS: CALCIUM ACETATE 667 MG CAPSULE (FP) PO SCH ×3 (09:59→17:31)
[2023-07-10] MEDS: ENOXAPARIN NA (PORCINE) 40 MG/0.4 ML DISP.SYRIN SQ SCH (09:59)
[2023-07-10] MEDS ORDERED: ENOXAPARIN NA (PORCINE) 40 MG/0.4 ML DISP.SYRIN SQ SCH (10:00)
[2023-07-10] MEDS: ALBUMIN HUMAN 25% 12.5 GM/50 ML VIAL IVPB SCH ×4 (10:00→11:30)
[2023-07-10 10:12] LABS: CHLORIDE 105 mmol/L (98-107); SODIUM 139 mmol/L (136-145)
[2023-07-10 10:20] LABS: CALCIUM 8.8 mg/dL (8.5-10.1)
[2023-07-10 10:21] LABS: BLOOD UREA NITROGEN 65.9 mg/dL (7-18); CO2 23 mmol/L (21-32); GLUCOSE,RANDOM 85 mg/dL (74-106)
[2023-07-10 10:24] LABS: SGOT/AST 24 U/L (15-37); SGPT/ALT 13 U/L (13-61)
[2023-07-10 10:25] LABS: BILIRUBIN,TOTAL 0.9 mg/dL (0.2-1)
[2023-07-10 10:30] LABS: ALBUMIN 2.3 g/dl (3.4-5.0); ALK PHOS 124 U/L (45-117); ANION GAP 12 mmol/L (4-13); CREATININE 9.8 mg/dL (0.55-1.3); POTASSIUM 6.1 mmol/L (3.5-5.1); TOT PROT 5.5 g/dl (6.4-8.2)
[2023-07-10] MEDS: CARVEDILOL 25 MG TABLET (FP) PO SCH ×2 (12:06→22:28)
[2023-07-10] MEDS ORDERED: ALBUMIN HUMAN 25% 12.5 GM/50 ML VIAL IV SCH (14:28)
[2023-07-10] MEDS ORDERED: VANCOMYCIN/WATER FOR INJ (PEG) 1,000 MG/200 ML BAG IVPB SCH (15:00)
[2023-07-11] MEDS: PIPERACILLIN/TAZOB 2.25 GM 2.25 GM in DEXTROSE 5%-WATER - 50 ML IVPB SCH ×3 (01:42→17:23)
[2023-07-11] MEDS: PRIMIDONE 50 MG TABLET PO SCH ×3 (05:42→22:32)
[2023-07-11 08:38] LABS: BASO % 0.7 % (0-2.0); EOS % 1.1 % (0-4.5); HEMATOCRIT 23.8 % (35.4-49); HEMOGLOBIN 7.6 GM/dL (11.7-16.9); LYMPH % 11.2 % (8-40); MCH 27.1 pg (25.7-33.7); MCHC 31.8 g/dl (32.0-35.9); MEAN CELL VOLUME 85.1 fl (80-96); MEAN PLT VOLUME 8.1 fl (7.5-11.1); MONO % 7.5 % (3.8-10.2); NEUT % 79.5 % (42.8-82.8); PLATELET COUNT 120 10^3/uL (134-434); RBC 2.79 M/mm3 (4.00-5.60); RDW 20.4 % (11.9-15.9)
[2023-07-11 08:42] LABS: POTASSIUM 4.2 mmol/L (3.5-5.1)
[2023-07-11 08:44] LABS: ALBUMIN 2.6 g/dl (3.4-5.0); CALCIUM 8.3 mg/dL (8.5-10.1)
[2023-07-11 08:49] LABS: BILIRUBIN,TOTAL 0.6 mg/dL (0.2-1); TOT PROT 5.7 g/dl (6.4-8.2)
[2023-07-11 08:50] LABS: BLOOD UREA NITROGEN 37.8 mg/dL (7-18)
[2023-07-11] MEDS: CARVEDILOL 25 MG TABLET (FP) PO SCH ×2 (09:41→22:47)
[2023-07-11] MEDS: CALCIUM ACETATE 667 MG CAPSULE (FP) PO SCH ×3 (09:41→17:23)
[2023-07-11] MEDS: GABAPENTIN 100 MG CAPSULE PO SCH ×2 (09:41→22:32)
[2023-07-11] MEDS: TAMSULOSIN HCL 0.4 MG CAP PO SCH ×2 (09:42→22:32)
[2023-07-11] MEDS: ENOXAPARIN NA (PORCINE) 40 MG/0.4 ML DISP.SYRIN SQ SCH (09:43)
[2023-07-11] MEDS ORDERED: VANCOMYCIN/WATER FOR INJ (PEG) 1,000 MG/200 ML BAG IVPB SCH (15:00)
[2023-07-11] MEDS ORDERED: ACETAMINOPHEN 325 MG TABLET (FP) PO PRN (16:10)
[2023-07-11] MEDS ORDERED: MELATONIN 5 MG TABLETS PO PRN (16:10)
[2023-07-11] MEDS ORDERED: INSULIN (NOVOLOG) ASPART 100 UNITS/ML 10ML VIAL ONE (18:14)
[2023-07-12] MEDS: PIPERACILLIN/TAZOB 2.25 GM 2.25 GM in DEXTROSE 5%-WATER - 50 ML IVPB SCH ×3 (02:42→17:12)
[2023-07-12] MEDS: PRIMIDONE 50 MG TABLET PO SCH ×3 (06:28→22:15)
[2023-07-12 08:46] LABS: BASO % 0.8 % (0-2.0); EOS % 3.1 % (0-4.5); HEMATOCRIT 25.8 % (35.4-49); HEMOGLOBIN 8.1 GM/dL (11.7-16.9); LYMPH % 14.6 % (8-40); MCH 26.8 pg (25.7-33.7); MCHC 31.4 g/dl (32.0-35.9); MEAN CELL VOLUME 85.3 fl (80-96); MEAN PLT VOLUME 8.2 fl (7.5-11.1); MONO % 6.9 % (3.8-10.2); NEUT % 74.6 % (42.8-82.8); PLATELET COUNT 103 10^3/uL (134-434); RBC 3.03 M/mm3 (4.00-5.60); RDW 20.2 % (11.9-15.9); WHITE BLOOD COUNT 5.2 K/mm3 (4.0-10.0)
[2023-07-12 08:59] LABS: CHLORIDE 100 mmol/L (98-107); POTASSIUM 4.2 mmol/L (3.5-5.1); SODIUM 139 mmol/L (136-145)
[2023-07-12 09:02] LABS: ANION GAP 10 mmol/L (4-13); CALCIUM 8.6 mg/dL (8.5-10.1); CO2 29 mmol/L (21-32); GLUCOSE,RANDOM 95 mg/dL (74-106)
[2023-07-12 09:03] LABS: ALBUMIN 2.4 g/dl (3.4-5.0)
[2023-07-12 09:06] LABS: SGOT/AST 18 U/L (15-37); SGPT/ALT 12 U/L (13-61)
[2023-07-12 09:07] LABS: BILIRUBIN,TOTAL 0.7 mg/dL (0.2-1); TOT PROT 5.8 g/dl (6.4-8.2)
[2023-07-12 09:10] LABS: ALK PHOS 164 U/L (45-117); CREATININE 7.6 mg/dL (0.55-1.3)
[2023-07-12] MEDS: CARVEDILOL 25 MG TABLET (FP) PO SCH ×2 (09:15→22:15)
[2023-07-12] MEDS: TAMSULOSIN HCL 0.4 MG CAP PO SCH ×2 (09:15→22:15)
[2023-07-12] MEDS: GABAPENTIN 100 MG CAPSULE PO SCH ×2 (09:15→22:15)
[2023-07-12] MEDS: CALCIUM ACETATE 667 MG CAPSULE (FP) PO SCH ×3 (09:15→17:12)
[2023-07-12] MEDS ORDERED: ENOXAPARIN NA (PORCINE) 30 MG/0.3 ML DISP.SYRIN SQ SCH (10:00)
[2023-07-12] MEDS ORDERED: SODIUM CHLORIDE 250 ML IV PRN (23:08)
[2023-07-13] MEDS: PIPERACILLIN/TAZOB 2.25 GM 2.25 GM in DEXTROSE 5%-WATER - 50 ML IVPB SCH ×4 (02:20→18:37)
[2023-07-13] MEDS: PRIMIDONE 50 MG TABLET PO SCH ×3 (06:01→21:42)
[2023-07-13 10:20] LABS: BASO % 0.9 % (0-2.0); EOS % 6.4 % (0-4.5); HEMATOCRIT 23.8 % (35.4-49); HEMOGLOBIN 7.6 GM/dL (11.7-16.9); LYMPH % 18.4 % (8-40); MEAN CELL VOLUME 84.2 fl (80-96); MEAN PLT VOLUME 8.1 fl (7.5-11.1); MONO % 7.8 % (3.8-10.2); NEUT % 66.5 % (42.8-82.8); PLATELET COUNT 101 10^3/uL (134-434); RBC 2.83 M/mm3 (4.00-5.60); RDW 19.8 % (11.9-15.9); WHITE BLOOD COUNT 4.5 K/mm3 (4.0-10.0)
[2023-07-13 10:43] LABS: CHLORIDE 100 mmol/L (98-107); SODIUM 136 mmol/L (136-145)
[2023-07-13 10:45] LABS: ALBUMIN 2.2 g/dl (3.4-5.0); ANION GAP 9 mmol/L (4-13); BLOOD UREA NITROGEN 62.9 mg/dL (7-18); CALCIUM 8.6 mg/dL (8.5-10.1); CO2 27 mmol/L (21-32); GLUCOSE,RANDOM 176 mg/dL (74-106)
[2023-07-13 10:48] LABS: SGOT/AST 14 U/L (15-37); SGPT/ALT 10 U/L (13-61)
[2023-07-13 10:50] LABS: BILIRUBIN,TOTAL 0.5 mg/dL (0.2-1); TOT PROT 5.4 g/dl (6.4-8.2)
[2023-07-13 10:51] LABS: ALK PHOS 171 U/L (45-117)
[2023-07-13 10:52] LABS: CREATININE 9.7 mg/dL (0.55-1.3)
[2023-07-13] MEDS: CALCIUM ACETATE 667 MG CAPSULE (FP) PO SCH ×3 (14:43→17:06)
[2023-07-13] MEDS: TAMSULOSIN HCL 0.4 MG CAP PO SCH ×2 (14:46→21:42)
[2023-07-13] MEDS: GABAPENTIN 100 MG CAPSULE PO SCH ×2 (14:46→21:42)
[2023-07-13] MEDS: CARVEDILOL 25 MG TABLET (FP) PO SCH ×2 (14:47→21:42)
[2023-07-13 17:09] LABS: IRON SERUM 39 ug/dL (50-175)
[2023-07-13 17:10] LABS: TOTAL IRON BINDING CAPACITY 102 ug/dL (250-450)
[2023-07-14] MEDS: PIPERACILLIN/TAZOB 2.25 GM 2.25 GM in DEXTROSE 5%-WATER - 50 ML IVPB SCH ×3 (02:22→17:37)
[2023-07-14] MEDS: PRIMIDONE 50 MG TABLET PO SCH ×3 (05:52→22:02)
[2023-07-14] MEDS: CARVEDILOL 25 MG TABLET (FP) PO SCH ×2 (09:03→22:02)
[2023-07-14] MEDS: GABAPENTIN 100 MG CAPSULE PO SCH ×2 (09:03→22:02)
[2023-07-14] MEDS: CALCIUM ACETATE 667 MG CAPSULE (FP) PO SCH ×3 (09:03→16:48)
[2023-07-14] MEDS: TAMSULOSIN HCL 0.4 MG CAP PO SCH ×2 (09:03→22:02)
[2023-07-14 10:45] LABS: BASO % 1.3 % (0-2.0); EOS % 4.9 % (0-4.5); HEMATOCRIT 26.4 % (35.4-49); HEMOGLOBIN 8.4 GM/dL (11.7-16.9); LYMPH % 22.3 % (8-40); MCH 26.9 pg (25.7-33.7); MEAN CELL VOLUME 84.1 fl (80-96); MEAN PLT VOLUME 7.9 fl (7.5-11.1); MONO % 8.6 % (3.8-10.2); NEUT % 62.9 % (42.8-82.8); PLATELET COUNT 110 10^3/uL (134-434); RBC 3.14 M/mm3 (4.00-5.60); RDW 19.7 % (11.9-15.9); WHITE BLOOD COUNT 4.7 K/mm3 (4.0-10.0)
[2023-07-14 11:01] LABS: POTASSIUM 3.6 mmol/L (3.5-5.1)
[2023-07-14 11:09] LABS: CALCIUM 8.4 mg/dL (8.5-10.1)
[2023-07-14 11:10] LABS: ALBUMIN 2.4 g/dl (3.4-5.0)
[2023-07-14 11:13] LABS: CREATININE 6.3 mg/dL (0.55-1.3)
[2023-07-14 11:14] LABS: BILIRUBIN,TOTAL 0.5 mg/dL (0.2-1); TOT PROT 5.8 g/dl (6.4-8.2)
[2023-07-14 11:16] LABS: BLOOD UREA NITROGEN 30.2 mg/dL (7-18)
[2023-07-14] MEDS ORDERED: SODIUM CHLORIDE 250 ML IV PRN (18:23)
[2023-07-14] MEDS ORDERED: levoFLOXacin 750 MG TABLET PO SCH (21:15)
[2023-07-14] MEDS ORDERED: levoFLOXacin 750 MG TABLET PO ONE (23:30)
[2023-07-15] MEDS: PIPERACILLIN/TAZOB 2.25 GM 2.25 GM in DEXTROSE 5%-WATER - 50 ML IVPB SCH ×3 (02:12→12:48)
[2023-07-15] MEDS: PRIMIDONE 50 MG TABLET PO SCH ×2 (06:49→14:17)
[2023-07-15 09:20] VITALS: RESP 18
[2023-07-15 09:31] LABS: BASO % 0.9 % (0-2.0); EOS % 3.7 % (0-4.5); HEMATOCRIT 25.3 % (35.4-49); HEMOGLOBIN 8.1 GM/dL (11.7-16.9); LYMPH % 17.4 % (8-40); MCHC 31.9 g/dl (32.0-35.9); MEAN CELL VOLUME 84.7 fl (80-96); MEAN PLT VOLUME 7.7 fl (7.5-11.1); MONO % 7.1 % (3.8-10.2); NEUT % 70.9 % (42.8-82.8); PLATELET COUNT 133 10^3/uL (134-434); RBC 2.99 M/mm3 (4.00-5.60); RDW 19.6 % (11.9-15.9); WHITE BLOOD COUNT 5.9 K/mm3 (4.0-10.0)
[2023-07-15 09:58] LABS: CHLORIDE 100 mmol/L (98-107); POTASSIUM 3.4 mmol/L (3.5-5.1); SODIUM 137 mmol/L (136-145)
[2023-07-15 10:01] LABS: ALBUMIN 2.4 g/dl (3.4-5.0); ANION GAP 7 mmol/L (4-13); BLOOD UREA NITROGEN 39.6 mg/dL (7-18); CALCIUM 9.1 mg/dL (8.5-10.1); CO2 30 mmol/L (21-32); GLUCOSE,RANDOM 120 mg/dL (74-106)
[2023-07-15 10:04] LABS: SGOT/AST 14 U/L (15-37); SGPT/ALT 11 U/L (13-61)
[2023-07-15 10:06] LABS: BILIRUBIN,TOTAL 0.4 mg/dL (0.2-1); TOT PROT 5.7 g/dl (6.4-8.2)
[2023-07-15 10:07] LABS: ALK PHOS 149 U/L (45-117)
[2023-07-15 10:23] LABS: CREATININE 7.9 mg/dL (0.55-1.3)
[2023-07-15] MEDS: CALCIUM ACETATE 667 MG CAPSULE (FP) PO SCH ×2 (12:45)
[2023-07-15] MEDS: CARVEDILOL 25 MG TABLET (FP) PO SCH (12:45)
[2023-07-15] MEDS: GABAPENTIN 100 MG CAPSULE PO SCH (12:45)
[2023-07-15] MEDS: TAMSULOSIN HCL 0.4 MG CAP PO SCH (12:47)
[2023-07-15 14:50] VITALS: BP 149/55; PULSE 64; TEMP 97.6
== END 2023-07-15 17:13 | disposition home or self-care (01) | DRG 871 ==
LOC: JER 12:51 → JERBED 13:37 → J4S 07-10 00:25 → J6S 07-11 16:03
PROVIDERS: ADMIT Internal Medicine; ATTEND Family Medicine
PROC: 5A1D70Z Performance of Urinary Filtration, Intermittent, Less than 6 Hours Per Day (ICD-10-PCS; principal; 2023-07-15)
DX: A41.9 Sepsis, unspecified organism (principal); N18.6 End stage renal disease; I13.2 Hypertensive heart and chronic kidney disease with heart failure and with stage 5 chronic kidney disease, or end stage renal disease; N39.0 Urinary tract infection, site not specified; E11.22 Type 2 diabetes mellitus with diabetic chronic kidney disease; I50.9 Heart failure, unspecified; D64.9 Anemia, unspecified; N40.0 Benign prostatic hyperplasia without lower urinary tract symptoms; Z99.2 Dependence on renal dialysis
CPT/HCPCS: 0241U-QW; 36415; 70450-TC; 71045-TC-FY; 74176-TC; 77080-TC-FY; 80048; 80053; 81003; 82728; 82962; 83540; 83550; 83605; 83615; 83690; 83735; 83880; 84466; 84484; 85025; 85610; 85730; 86705; 86803; 87040; 87077; 87086; 87186; 87340; 93005; 93010; 97116-GP; 97162-GP; 99285-25; P9047

== ENCOUNTER 2023-08-05 13:06 | Inpatient (IN) | payer OTHER ==
[2023-08-05 16:28] LABS: PH,URINE >= 9.0 (5.0-8.0); URINE APPEARANCE Clear; URINE BILIRUBIN Negative (NEGATIVE); URINE COLOR Yellow; URINE GLUCOSE (UA) Trace (NEGATIVE); URINE KETONE Negative (NEGATIVE); URINE LEUK ESTERASE Negative (NEGATIVE); URINE NITRITE Negative (NEGATIVE); URINE PROTEIN 3+ (NEGATIVE); URINE UROBILINOGEN 0.2 mg/dL (0.2-1.0)
[2023-08-05 16:42] LABS: BASO % 1.5 % (0-2.0); EOS % 4.5 % (0-4.5); HEMATOCRIT 35.7 % (35.4-49); HEMOGLOBIN 11.6 GM/dL (11.7-16.9); LYMPH % 23.4 % (8-40); MCH 27.4 pg (25.7-33.7); MCHC 32.5 g/dl (32.0-35.9); MEAN CELL VOLUME 84.2 fl (80-96); MEAN PLT VOLUME 7.6 fl (7.5-11.1); MONO % 8.5 % (3.8-10.2); NEUT % 62.1 % (42.8-82.8); PLATELET COUNT 114 10^3/uL (134-434); RBC 4.24 M/mm3 (4.00-5.60); RDW 17.6 % (11.9-15.9); WHITE BLOOD COUNT 4.1 K/mm3 (4.0-10.0)
[2023-08-05 17:04] LABS: POTASSIUM 4.3 mmol/L (3.5-5.1)
[2023-08-05 17:06] LABS: CALCIUM 9.4 mg/dL (8.5-10.1)
[2023-08-05 17:07] LABS: ALBUMIN 3.4 g/dl (3.4-5.0); BLOOD UREA NITROGEN 61.7 mg/dL (7-18)
[2023-08-05 17:10] LABS: CREATININE 6.5 mg/dL (0.55-1.3); PHOSPHOROUS 4.2 mg/dL (2.5-4.9)
[2023-08-05 17:11] LABS: TOT PROT 7.8 g/dl (6.4-8.2)
[2023-08-05 17:12] LABS: BILIRUBIN,TOTAL 0.5 mg/dL (0.2-1)
[2023-08-05] MEDS ORDERED: LABETALOL HCL 5 MG/1 ML (100MG/20 ML VIAL) IVPUSH ONE (18:48)
[2023-08-05 22:09] LABS: MAGNESIUM 2.2 mg/dL (1.8-2.4)
[2023-08-05] MEDS ORDERED: hydrALAZINE HCL 20 MG/ML VIAL IVPUSH ONE (23:50)
[2023-08-05] MEDS ORDERED: hydrALAZINE HCL 20 MG/ML VIAL ONE (23:54)
[2023-08-06] MEDS ORDERED: REMDESIVIR 200 MG in SODIUM CHLORIDE 250 ML IVPB ONE ×2 (02:11→04:00)
[2023-08-06] MEDS ORDERED: CARVEDILOL 25 MG TABLET (FP) PO SCH ×2 (02:20→10:00)
[2023-08-06] MEDS: HEPARIN NA (PORCINE) 5,000 UNITS/ML 1ML VIAL SQ SCH ×3 (05:39→21:37)
[2023-08-06] MEDS: INSULIN ASPART SLIDING SCALE (NOVOLOG) 1 VIAL SQ SCH ×4 (06:17→21:38)
[2023-08-06 06:56] LABS: HEMATOCRIT 32.6 % (35.4-49); HEMOGLOBIN 10.8 GM/dL (11.7-16.9); MCH 28.1 pg (25.7-33.7); MCHC 33.2 g/dl (32.0-35.9); MEAN CELL VOLUME 84.6 fl (80-96); MEAN PLT VOLUME 7.6 fl (7.5-11.1); PLATELET COUNT 102 10^3/uL (134-434); RBC 3.85 M/mm3 (4.00-5.60); RDW 17.6 % (11.9-15.9)
[2023-08-06 07:00] LABS: INR 1.1 (0.83-1.09); PROTHROMBIN TIME (PATIENT) 12.7 SEC (9.7-13.0)
[2023-08-06] MEDS ORDERED: INSULIN ASPART SLIDING SCALE (NOVOLOG) 1 VIAL SQ SCH (07:00)
[2023-08-06 07:21] LABS: POTASSIUM 3.9 mmol/L (3.5-5.1)
[2023-08-06 07:26] LABS: CALCIUM 8.7 mg/dL (8.5-10.1)
[2023-08-06 07:27] LABS: BLOOD UREA NITROGEN 61.9 mg/dL (7-18); MAGNESIUM 2.2 mg/dL (1.8-2.4)
[2023-08-06 07:30] LABS: CHOLESTEROL 136 mg/dL (50-200); CREATININE 7.2 mg/dL (0.55-1.3); PHOSPHOROUS 4.4 mg/dL (2.5-4.9)
[2023-08-06 07:31] LABS: BILIRUBIN,TOTAL 0.5 mg/dL (0.2-1); LDL CHOLESTEROL (ONLY SJRH) 83 mg/dL (5-100); TOT PROT 6.7 g/dl (6.4-8.2)
[2023-08-06 07:33] LABS: HDL CHOLESTEROL 38 mg/dL (40-60)
[2023-08-06] MEDS ORDERED: PNEUMOCOCCAL 23 VACCINE 0.5 ML VIAL IM ONE (10:00)
[2023-08-06] MEDS ORDERED: FLU VACCINE (FLULAVAL) PF 60 MCG/0.5 ML SYRINGE 2023-2024 IM ONE (10:00)
[2023-08-06] MEDS ORDERED: PNEUMOC 20-VAL CONJ-DIP CRM/PF 0.5 ML SYRINGE IM ONE (10:00)
[2023-08-06] MEDS: CARVEDILOL 25 MG TABLET (FP) PO SCH ×2 (10:22→21:37)
[2023-08-06] MEDS ORDERED: HEPARIN NA (PORCINE) 5,000 UNITS/ML 1ML VIAL IVPUSH ONE (10:39)
[2023-08-06] MEDS ORDERED: SODIUM CHLORIDE 250 ML IV PRN (13:20)
[2023-08-06] MEDS ORDERED: EPOETIN ALFA-EPBX 4,000 UNIT/ML VIAL SQ ONE (13:30)
[2023-08-06] MEDS ORDERED: INSULIN (NOVOLOG) ASPART 100 UNITS/ML 10ML VIAL ONE (13:58)
[2023-08-07] MEDS: REMDESIVIR 100 MG in SODIUM CHLORIDE 250 ML IVPB SCH (04:49)
[2023-08-07] MEDS: HEPARIN NA (PORCINE) 5,000 UNITS/ML 1ML VIAL SQ SCH ×4 (06:14→21:25)
[2023-08-07] MEDS: INSULIN ASPART SLIDING SCALE (NOVOLOG) 1 VIAL SQ SCH ×5 (06:16→21:41)
[2023-08-07 08:06] LABS: BASO % 0.9 % (0-2.0); EOS % 5.9 % (0-4.5); HEMATOCRIT 32.4 % (35.4-49); HEMOGLOBIN 10.6 GM/dL (11.7-16.9); MCH 27.8 pg (25.7-33.7); MCHC 32.9 g/dl (32.0-35.9); MEAN CELL VOLUME 84.5 fl (80-96); MEAN PLT VOLUME 7.8 fl (7.5-11.1); NEUT % 71.2 % (42.8-82.8); PLATELET COUNT 99 10^3/uL (134-434); RBC 3.83 M/mm3 (4.00-5.60); RDW 17.6 % (11.9-15.9); WHITE BLOOD COUNT 4.5 K/mm3 (4.0-10.0)
[2023-08-07 08:27] LABS: POTASSIUM 3.9 mmol/L (3.5-5.1)
[2023-08-07 08:33] LABS: ALBUMIN 2.9 g/dl (3.4-5.0); CALCIUM 9.3 mg/dL (8.5-10.1)
[2023-08-07 08:34] LABS: BLOOD UREA NITROGEN 38.3 mg/dL (7-18)
[2023-08-07 08:36] LABS: CREATININE 5.7 mg/dL (0.55-1.3)
[2023-08-07 08:39] LABS: BILIRUBIN,TOTAL 1.1 mg/dL (0.2-1); TOT PROT 6.4 g/dl (6.4-8.2)
[2023-08-07] MEDS: CARVEDILOL 25 MG TABLET (FP) PO SCH ×2 (09:40→21:25)
[2023-08-07] MEDS: PIPERACILLIN/TAZOB 2.25 GM 2.25 GM in DEXTROSE 5%-WATER - 50 ML IVPB SCH ×2 (13:18→18:50)
[2023-08-07] MEDS ORDERED: SODIUM CHLORIDE 250 ML IV PRN (14:38)
[2023-08-08] MEDS: PIPERACILLIN/TAZOB 2.25 GM 2.25 GM in DEXTROSE 5%-WATER - 50 ML IVPB SCH ×3 (01:53→17:42)
[2023-08-08] MEDS: REMDESIVIR 100 MG in SODIUM CHLORIDE 250 ML IVPB SCH (03:01)
[2023-08-08] MEDS: HEPARIN NA (PORCINE) 5,000 UNITS/ML 1ML VIAL SQ SCH ×3 (06:13→21:07)
[2023-08-08] MEDS: INSULIN ASPART SLIDING SCALE (NOVOLOG) 1 VIAL SQ SCH ×4 (06:48→21:07)
[2023-08-08 07:05] LABS: BASO % 1.3 % (0-2.0); EOS % 5.7 % (0-4.5); HEMATOCRIT 32.8 % (35.4-49); HEMOGLOBIN 10.6 GM/dL (11.7-16.9); LYMPH % 20.6 % (8-40); MCH 27.6 pg (25.7-33.7); MCHC 32.2 g/dl (32.0-35.9); MEAN CELL VOLUME 85.5 fl (80-96); MEAN PLT VOLUME 8.4 fl (7.5-11.1); MONO % 11.2 % (3.8-10.2); NEUT % 61.2 % (42.8-82.8); PLATELET COUNT 108 10^3/uL (134-434); RBC 3.84 M/mm3 (4.00-5.60); RDW 17.8 % (11.9-15.9); WHITE BLOOD COUNT 3.9 K/mm3 (4.0-10.0)
[2023-08-08 07:19] LABS: CHLORIDE 103 mmol/L (98-107); POTASSIUM 3.9 mmol/L (3.5-5.1); SODIUM 138 mmol/L (136-145)
[2023-08-08 07:22] LABS: ANION GAP 9 mmol/L (4-13); CALCIUM 8.5 mg/dL (8.5-10.1); CO2 26 mmol/L (21-32); GLUCOSE,RANDOM 77 mg/dL (74-106)
[2023-08-08 07:23] LABS: ALBUMIN 2.9 g/dl (3.4-5.0)
[2023-08-08 07:24] LABS: BLOOD UREA NITROGEN 53.4 mg/dL (7-18); SGPT/ALT 10 U/L (13-61)
[2023-08-08 07:26] LABS: SGOT/AST 12 U/L (15-37)
[2023-08-08 07:27] LABS: ALK PHOS 124 U/L (45-117); BILIRUBIN,TOTAL 0.4 mg/dL (0.2-1); TOT PROT 6.5 g/dl (6.4-8.2)
[2023-08-08 07:32] LABS: CREATININE 7.5 mg/dL (0.55-1.3)
[2023-08-08] MEDS ORDERED: EPOETIN ALFA-EPBX 4,000 UNIT/ML VIAL SQ ONE (09:15)
[2023-08-08] MEDS: CARVEDILOL 25 MG TABLET (FP) PO SCH ×2 (10:24→21:07)
[2023-08-08 22:31] VITALS: BMI 24.2
[2023-08-09] MEDS: PIPERACILLIN/TAZOB 2.25 GM 2.25 GM in DEXTROSE 5%-WATER - 50 ML IVPB SCH ×3 (02:27→17:14)
[2023-08-09] MEDS: HEPARIN NA (PORCINE) 5,000 UNITS/ML 1ML VIAL SQ SCH ×3 (05:38→22:24)
[2023-08-09] MEDS: INSULIN ASPART SLIDING SCALE (NOVOLOG) 1 VIAL SQ SCH ×4 (06:25→22:38)
[2023-08-09] MEDS: VITAMIN B COMP W-C 1 EA TABLET (NEPHRO-VITE) PO SCH (10:11)
[2023-08-09] MEDS: CARVEDILOL 25 MG TABLET (FP) PO SCH ×2 (10:11→22:24)
[2023-08-10] MEDS: PIPERACILLIN/TAZOB 2.25 GM 2.25 GM in DEXTROSE 5%-WATER - 50 ML IVPB SCH ×2 (02:47→10:28)
[2023-08-10] MEDS: HEPARIN NA (PORCINE) 5,000 UNITS/ML 1ML VIAL SQ SCH (05:49)
[2023-08-10] MEDS: INSULIN ASPART SLIDING SCALE (NOVOLOG) 1 VIAL SQ SCH ×2 (06:06→11:51)
[2023-08-10] MEDS: CARVEDILOL 25 MG TABLET (FP) PO SCH (10:28)
[2023-08-10] MEDS: VITAMIN B COMP W-C 1 EA TABLET (NEPHRO-VITE) PO SCH (10:29)
[2023-08-10 17:12] VITALS: BP 157/65; PULSE 67; RESP 24; TEMP 98.2
== END 2023-08-10 12:38 | disposition home or self-care (01) | DRG 177 ==
LOC: JER 13:06 → JERBED 16:43 → J4W 08-06 00:43
PROVIDERS: ADMIT Internal Medicine; ATTEND Internal Medicine
PROC: XW033E5 Introduction of Remdesivir Anti-infective into Peripheral Vein, Percutaneous Approach, New Technology Group 5 (ICD-10-PCS; principal; 2023-08-06)
PROC: 5A1D70Z Performance of Urinary Filtration, Intermittent, Less than 6 Hours Per Day (ICD-10-PCS; 2023-08-06)
PROC: 5A1D70Z Performance of Urinary Filtration, Intermittent, Less than 6 Hours Per Day (ICD-10-PCS; 2023-08-08)
DX: U07.1 COVID-19 (principal); N18.6 End stage renal disease; I13.2 Hypertensive heart and chronic kidney disease with heart failure and with stage 5 chronic kidney disease, or end stage renal disease; N39.0 Urinary tract infection, site not specified; N40.0 Benign prostatic hyperplasia without lower urinary tract symptoms; D64.9 Anemia, unspecified; C67.9 Malignant neoplasm of bladder, unspecified; B95.2 Enterococcus as the cause of diseases classified elsewhere; G51.0 Bell's palsy; E11.22 Type 2 diabetes mellitus with diabetic chronic kidney disease; I50.9 Heart failure, unspecified; Z99.2 Dependence on renal dialysis; Z85.51 Personal history of malignant neoplasm of bladder
CPT/HCPCS: 0241U-QW; 36415; 70450-TC; 70551-TC; 71045-TC-FY; 80053; 80061; 81003; 82465; 82962; 83735; 84100; 84443; 84484; 85025; 85027; 85610; 87086; 87186; 90677; 90686; 93005; 93010; 93880-TC; 97116-GP; 97162-GP; 99285-25; G0008; J0248; J1644; Q5106

== ENCOUNTER 2023-09-08 19:53 | Emergency (ER) | payer OTHER ==
[2023-09-08 19:57] VITALS: BP 185/80; PULSE 73; RESP 17; TEMP 98.6; BMI 25.0
== END 2023-09-08 22:28 | disposition home or self-care (01) ==
LOC: JER 19:53
DX: L76.21 Postprocedural hemorrhage of skin and subcutaneous tissue following a dermatologic procedure (principal)
CPT/HCPCS: 99282-25

== ENCOUNTER 2023-11-14 13:17 | Inpatient (IN) | payer OTHER ==
[2023-11-14] MEDS ORDERED: ACETAMINOPHEN INJECTION 100 ML IVPB ONE (14:14)
[2023-11-14] MEDS ORDERED: VANCOMYCIN/WATER 1250 MG 1,250 MG/250 ML BAG IVPB ONE (14:15)
[2023-11-14] MEDS ORDERED: PIPERACILLIN/TAZOB 3.375 GM 3.375 GM/50 ML BAG IVPB ONE (14:15)
[2023-11-14 14:17] LABS: VENOUS BASE EXCESS 0.4 mmol/L (-2-2); VENOUS O2 SATURATION 42.2 % (70-80); VENOUS PCO2 42.7 mmHg (38-52); VENOUS PH 7.393 (7.310-7.410)
[2023-11-14] MEDS: ACETAMINOPHEN 1000 MG/100 ML BAG IVPB ONE (14:18)
[2023-11-14 14:22] LABS: HEMATOCRIT 35.8 % (35.4-49); HEMOGLOBIN 11.7 GM/dL (11.7-16.9); MCH 28.1 pg (25.7-33.7); MCHC 32.8 g/dl (32.0-35.9); MEAN CELL VOLUME 85.6 fl (80-96); MEAN PLT VOLUME 7.1 fl (7.5-11.1); PLATELET COUNT 234 10^3/uL (134-434); RBC 4.18 M/mm3 (4.00-5.60); WHITE BLOOD COUNT 13.8 K/mm3 (4.0-10.0)
[2023-11-14 14:29] LABS: INR 1.12 (0.83-1.09)
[2023-11-14 14:32] LABS: ACTIVATED PTT 29.1 SECONDS (25.2-36.5)
[2023-11-14] MEDS: PIPERACILLIN/TAZOB 3.375 GM 3.375 GM in DEXTROSE 5%-WATER - 50 ML IVPB ONE (14:36)
[2023-11-14] MEDS: VANCOMYCIN/WATER 1250 MG 1,250 MG/250 ML BAG IVPB ONE (14:40)
[2023-11-14 14:41] LABS: POTASSIUM 4.9 mmol/L (3.5-5.1)
[2023-11-14 14:44] LABS: CALCIUM 8.3 mg/dL (8.5-10.1)
[2023-11-14 14:45] LABS: ALBUMIN 3.2 g/dl (3.4-5.0); BLOOD UREA NITROGEN 44.2 mg/dL (7-18)
[2023-11-14 14:47] LABS: ANISOCYTOSIS 0; HELMET CELLS 0; HOWELL-JOLLY BODIES 0; MACROCYTOSIS 0; OVALOCYTE 0; ROULEAU 0; SICKELED CELLS 0; TARGET CELLS 0; TEAR DROP CELLS 0; TOXIC GRANULATION 0
[2023-11-14 14:48] LABS: CREATININE 6.6 mg/dL (0.55-1.3); TOT PROT 7.3 g/dl (6.4-8.2)
[2023-11-14 14:49] LABS: BILIRUBIN,TOTAL 0.5 mg/dL (0.2-1)
[2023-11-14] MEDS: SODIUM CHLORIDE 500 ML IV STA (14:54)
[2023-11-14 14:56] LABS: LACTIC ACID 2.5 mmol/L (0.4-2.0)
[2023-11-14 15:08] LABS: PHOSPHOROUS 1.7 mg/dL (2.5-4.9)
[2023-11-14] MEDS ORDERED: ACETAMINOPHEN 325 MG TABLET (FP) PO PRN (16:56)
[2023-11-14] MEDS ORDERED: TORSEMIDE 20 MG TABLET (FP) PO SCH (17:00)
[2023-11-14] MEDS ORDERED: TAMSULOSIN HCL 0.4 MG CAP ONE (17:52)
[2023-11-14] MEDS: TAMSULOSIN HCL 0.4 MG CAP PO SCH (17:54)
[2023-11-14] MEDS: CALCIUM ACETATE 667 MG CAPSULE (FP) PO SCH (19:15)
[2023-11-14] MEDS: GABAPENTIN 100 MG CAPSULE PO SCH (21:40)
[2023-11-14] MEDS: HEPARIN NA (PORCINE) 5,000 UNITS/ML 1ML VIAL SQ SCH (21:40)
[2023-11-14] MEDS: CARVEDILOL 25 MG TABLET (FP) PO SCH (21:40)
[2023-11-14] MEDS: PRIMIDONE 50 MG TABLET PO SCH (23:09)
[2023-11-15 01:35] VITALS: BMI 26.2
[2023-11-15] MEDS: TORSEMIDE 20 MG TABLET (FP) PO SCH (09:07)
[2023-11-15 10:23] LABS: BASO % 0.7 % (0-2.0); HEMATOCRIT 29.7 % (35.4-49); HEMOGLOBIN 9.7 GM/dL (11.7-16.9); LYMPH % 8.7 % (8-40); MCH 28.3 pg (25.7-33.7); MCHC 32.5 g/dl (32.0-35.9); MEAN CELL VOLUME 86.8 fl (80-96); MEAN PLT VOLUME 7.4 fl (7.5-11.1); MONO % 6.4 % (3.8-10.2); NEUT % 83.2 % (42.8-82.8); PLATELET COUNT 185 10^3/uL (134-434); RBC 3.42 M/mm3 (4.00-5.60); RDW 18.1 % (11.9-15.9); WHITE BLOOD COUNT 8.3 K/mm3 (4.0-10.0)
[2023-11-15 10:50] LABS: CHLORIDE 103 mmol/L (98-107); POTASSIUM 5.5 mmol/L (3.5-5.1); SODIUM 136 mmol/L (136-145)
[2023-11-15 10:57] LABS: ALBUMIN 2.6 g/dl (3.4-5.0); ANION GAP 9 mmol/L (4-13); CO2 23 mmol/L (21-32); GLUCOSE,RANDOM 158 mg/dL (74-106)
[2023-11-15 10:58] LABS: BLOOD UREA NITROGEN 58.1 mg/dL (7-18)
[2023-11-15 11:01] LABS: SGOT/AST 21 U/L (15-37)
[2023-11-15 11:02] LABS: BILIRUBIN,TOTAL 0.5 mg/dL (0.2-1); TOT PROT 5.8 g/dl (6.4-8.2)
[2023-11-15 11:03] LABS: ALK PHOS 98 U/L (45-117)
[2023-11-15 11:06] LABS: SGPT/ALT 23 U/L (13-61)
[2023-11-15 11:09] LABS: CREATININE 8.5 mg/dL (0.55-1.3)
[2023-11-15] MEDS: PIPERACILLIN/TAZOB 3.375 GM 3.375 GM in DEXTROSE 5%-WATER - 50 ML IVPB SCH (12:53)
[2023-11-15] MEDS: PIPERACILLIN/TAZOB 2.25 GM 2.25 GM in DEXTROSE 5%-WATER - 50 ML IVPB SCH (12:54)
[2023-11-15] MEDS: REMDESIVIR 200 MG in SODIUM CHLORIDE 250 ML IVPB ONE (17:34)
[2023-11-16 08:38] LABS: CHLORIDE 106 mmol/L (98-107); SODIUM 140 mmol/L (136-145)
[2023-11-16 08:43] LABS: ALBUMIN 2.5 g/dl (3.4-5.0); CO2 20 mmol/L (21-32); GLUCOSE,RANDOM 107 mg/dL (74-106)
[2023-11-16 08:45] LABS: SGOT/AST 22 U/L (15-37); SGPT/ALT 24 U/L (13-61)
[2023-11-16 08:47] LABS: BILIRUBIN,TOTAL 0.5 mg/dL (0.2-1); TOT PROT 6.1 g/dl (6.4-8.2)
[2023-11-16 08:48] LABS: ALK PHOS 98 U/L (45-117)
[2023-11-16 08:49] LABS: ANION GAP 14 mmol/L (4-13); CREATININE 10.1 mg/dL (0.55-1.3); POTASSIUM 6.2 mmol/L (3.5-5.1)
[2023-11-16 09:21] LABS: BASO % 0.8 % (0-2.0); EOS % 3.8 % (0-4.5); HEMATOCRIT 27.5 % (35.4-49); HEMOGLOBIN 9.1 GM/dL (11.7-16.9); LYMPH % 11.5 % (8-40); MCH 28.9 pg (25.7-33.7); MCHC 33.2 g/dl (32.0-35.9); MEAN PLT VOLUME 7.6 fl (7.5-11.1); MONO % 8.5 % (3.8-10.2); NEUT % 75.4 % (42.8-82.8); PLATELET COUNT 178 10^3/uL (134-434); RBC 3.16 M/mm3 (4.00-5.60); RDW 18.3 % (11.9-15.9); WHITE BLOOD COUNT 6.5 K/mm3 (4.0-10.0)
[2023-11-16] MEDS ORDERED: SODIUM CHLORIDE 250 ML IV PRN (13:09)
[2023-11-16] MEDS: REMDESIVIR 100 MG in SODIUM CHLORIDE 250 ML IVPB SCH (17:21)
[2023-11-17 09:16] LABS: HEMATOCRIT 29.1 % (35.4-49); HEMOGLOBIN 9.6 GM/dL (11.7-16.9); LYMPH % 14.3 % (8-40); MCH 28.5 pg (25.7-33.7); MCHC 32.9 g/dl (32.0-35.9); MEAN CELL VOLUME 86.5 fl (80-96); MEAN PLT VOLUME 7.2 fl (7.5-11.1); MONO % 9.3 % (3.8-10.2); NEUT % 72.4 % (42.8-82.8); PLATELET COUNT 169 10^3/uL (134-434); RBC 3.36 M/mm3 (4.00-5.60); RDW 18.5 % (11.9-15.9); WHITE BLOOD COUNT 5.1 K/mm3 (4.0-10.0)
[2023-11-17 09:48] LABS: CHLORIDE 103 mmol/L (98-107); POTASSIUM 4.7 mmol/L (3.5-5.1); SODIUM 141 mmol/L (136-145)
[2023-11-17 10:19] LABS: ANION GAP 11 mmol/L (4-13); CO2 27 mmol/L (21-32); GLUCOSE,RANDOM 88 mg/dL (74-106)
[2023-11-17 10:20] LABS: ALBUMIN 2.4 g/dl (3.4-5.0)
[2023-11-17 10:22] LABS: CREATININE 6.5 mg/dL (0.55-1.3); SGOT/AST 19 U/L (15-37); SGPT/ALT 24 U/L (13-61)
[2023-11-17 10:23] LABS: BILIRUBIN,TOTAL 0.4 mg/dL (0.2-1)
[2023-11-17 10:25] LABS: ALK PHOS 103 U/L (45-117)
[2023-11-17 10:33] LABS: BLOOD UREA NITROGEN 41.7 mg/dL (7-18); CALCIUM 6.7 mg/dL (8.5-10.1)
[2023-11-17 15:16] VITALS: RESP 18
[2023-11-18] MEDS ORDERED: SODIUM CHLORIDE 250 ML IV PRN (09:00)
[2023-11-18] MEDS: EPOETIN ALFA-EPBX 10,000 UNIT/ML VIAL IVPUSH ONE (09:56)
[2023-11-18 10:00] LABS: HEMATOCRIT 25.8 % (35.4-49); HEMOGLOBIN 8.7 GM/dL (11.7-16.9); MCH 28.9 pg (25.7-33.7); MCHC 33.6 g/dl (32.0-35.9); MEAN CELL VOLUME 85.9 fl (80-96); MEAN PLT VOLUME 7.3 fl (7.5-11.1); PLATELET COUNT 145 10^3/uL (134-434); RBC 3.01 M/mm3 (4.00-5.60); RDW 18.6 % (11.9-15.9); WHITE BLOOD COUNT 5.2 K/mm3 (4.0-10.0)
[2023-11-18 10:40] LABS: CHLORIDE 103 mmol/L (98-107); POTASSIUM 5.1 mmol/L (3.5-5.1)
[2023-11-18 10:53] LABS: BLOOD UREA NITROGEN 56.1 mg/dL (7-18); CO2 23 mmol/L (21-32); GLUCOSE,RANDOM 138 mg/dL (74-106)
[2023-11-18 10:54] LABS: ALBUMIN 2.2 g/dl (3.4-5.0)
[2023-11-18 10:57] LABS: ALK PHOS 105 U/L (45-117); SGOT/AST 16 U/L (15-37)
[2023-11-18 10:58] LABS: BILIRUBIN,TOTAL 0.4 mg/dL (0.2-1); TOT PROT 5.5 g/dl (6.4-8.2)
[2023-11-18 10:59] LABS: SGPT/ALT 18 U/L (13-61)
[2023-11-18 11:02] LABS: ANION GAP 14 mmol/L (4-13); CALCIUM 6.2 mg/dL (8.5-10.1); CREATININE 8.3 mg/dL (0.55-1.3); SODIUM 140 mmol/L (136-145)
[2023-11-19 10:22] VITALS: BP 113/47; PULSE 61; TEMP 98.8
== END 2023-11-19 13:31 | disposition home or self-care (01) | DRG 871 ==
LOC: JER 13:17 → JERBED 15:39 → J5S 17:03
PROVIDERS: ADMIT Internal Medicine; ATTEND Internal Medicine
PROC: XW033E5 Introduction of Remdesivir Anti-infective into Peripheral Vein, Percutaneous Approach, New Technology Group 5 (ICD-10-PCS; principal; 2023-11-15)
PROC: 5A1D70Z Performance of Urinary Filtration, Intermittent, Less than 6 Hours Per Day (ICD-10-PCS; 2023-11-16)
DX: A41.89 Other specified sepsis (principal); N18.6 End stage renal disease; U07.1 COVID-19; I13.2 Hypertensive heart and chronic kidney disease with heart failure and with stage 5 chronic kidney disease, or end stage renal disease; E11.22 Type 2 diabetes mellitus with diabetic chronic kidney disease; I50.9 Heart failure, unspecified; Z99.2 Dependence on renal dialysis; N40.0 Benign prostatic hyperplasia without lower urinary tract symptoms; D64.9 Anemia, unspecified; R26.81 Unsteadiness on feet
CPT/HCPCS: 0241U-QW; 36415; 71045-TC-FY; 71250-TC; 74176-TC; 80053; 82550; 82728; 82803; 83605; 83615; 83735; 84100; 84484; 85025; 85027; 85379; 85610; 85730; 86704; 86803; 86850; 86900; 86901; 87040; 87340; 87517; 93005; 93010; 97116-GP; 97161-GP; 99285-25; J0131; J0248; J1644; Q5106

== ENCOUNTER 2023-11-21 12:07 | Inpatient (IN) | payer OTHER ==
[2023-11-21 13:36] LABS: VENOUS BASE EXCESS -3.1 mmol/L (-2-2); VENOUS O2 SATURATION 62.4 % (70-80); VENOUS PCO2 44.9 mmHg (38-52); VENOUS PH 7.327 (7.310-7.410)
[2023-11-21] MEDS ORDERED: VANCOMYCIN/WATER 1250 MG 1,250 MG/250 ML BAG IVPB ONE (13:39)
[2023-11-21] MEDS ORDERED: PIPERACILLIN/TAZOB 3.375 GM 3.375 GM/50 ML BAG IVPB ONE (13:39)
[2023-11-21] MEDS ORDERED: ACETAMINOPHEN INJECTION 100 ML IVPB ONE (13:39)
[2023-11-21 13:43] LABS: BASO % 0.3 % (0-2.0); EOS % 0.1 % (0-4.5); HEMATOCRIT 31.6 % (35.4-49); HEMOGLOBIN 10.3 GM/dL (11.7-16.9); LYMPH % 6.7 % (8-40); MCH 28.2 pg (25.7-33.7); MCHC 32.7 g/dl (32.0-35.9); MEAN CELL VOLUME 86.2 fl (80-96); MEAN PLT VOLUME 7.9 fl (7.5-11.1); MONO % 9.4 % (3.8-10.2); NEUT % 83.5 % (42.8-82.8); PLATELET COUNT 178 10^3/uL (134-434); RBC 3.66 M/mm3 (4.00-5.60); RDW 18.4 % (11.9-15.9); WHITE BLOOD COUNT 9.6 K/mm3 (4.0-10.0)
[2023-11-21 13:52] LABS: INR 1.32 (0.83-1.09); PROTHROMBIN TIME (PATIENT) 15.3 SEC (9.7-13.0)
[2023-11-21] MEDS: ACETAMINOPHEN 1000 MG/100 ML BAG IVPB ONE (13:52)
[2023-11-21 13:55] LABS: ACTIVATED PTT 36.2 SECONDS (25.2-36.5)
[2023-11-21 13:57] LABS: CHLORIDE 98 mmol/L (98-107); POTASSIUM 5.8 mmol/L (3.5-5.1); SODIUM 137 mmol/L (136-145)
[2023-11-21 14:01] LABS: ALBUMIN 2.5 g/dl (3.4-5.0); ANION GAP 16 mmol/L (4-13); CO2 22 mmol/L (21-32); GLUCOSE,RANDOM 121 mg/dL (74-106); MAGNESIUM 2.3 mg/dL (1.8-2.4)
[2023-11-21 14:03] LABS: SGPT/ALT 19 U/L (13-61)
[2023-11-21 14:04] LABS: PHOSPHOROUS 6.1 mg/dL (2.5-4.9); SGOT/AST 18 U/L (15-37)
[2023-11-21 14:05] LABS: BILIRUBIN,TOTAL 0.6 mg/dL (0.2-1); TOT PROT 6.2 g/dl (6.4-8.2)
[2023-11-21] MEDS: PIPERACILLIN/TAZOB 3.375 GM 3.375 GM in DEXTROSE 5%-WATER - 50 ML IVPB ONE (14:06)
[2023-11-21 14:09] LABS: N-TERMINAL BNP 28576.9 pg/ml (5-450)
[2023-11-21 14:11] LABS: ALK PHOS 150 U/L (45-117); BLOOD UREA NITROGEN 90.7 mg/dL (7-18); CALCIUM 5.8 mg/dL (8.5-10.1); CREATININE 11.4 mg/dL (0.55-1.3)
[2023-11-21] MEDS: VANCOMYCIN/WATER 1250 MG 1,250 MG/250 ML BAG IVPB ONE (14:42)
[2023-11-21] MEDS ORDERED: CALCIUM GLUCONATE 10% - 1,000 MG/10 ML VIAL ONE (14:47)
[2023-11-21] MEDS: CALCIUM GLUCONATE 10% - 1,000 MG/10 ML VIAL IVPUSH ONE (14:48)
[2023-11-21] MEDS ORDERED: SODIUM CHLORIDE 250 ML IV PRN (15:50)
[2023-11-21] MEDS: INSULIN REGULAR HUMAN 100 UNITS/ML *VIAL IVPUSH ONE (21:31)
[2023-11-21] MEDS: DEXTROSE 50%-WATER - 25 GM/50 ML VIAL IVPUSH ONE (21:31)
[2023-11-21] MEDS ORDERED: AZITHROMYCIN IVPB 500 MG/250 ML BAG IVPB ONE (21:33)
[2023-11-21] MEDS: AZITHROMYCIN IVPB 500 MG/250 ML BAG IVPB ONE (21:44)
[2023-11-21] MEDS ORDERED: PIPERACILLIN/TAZOB 2.25 GM 2.25 GM/50 ML BAG IVPB ONE (22:58)
[2023-11-21] MEDS: PIPERACILLIN/TAZOB 2.25 GM 2.25 GM in DEXTROSE 5%-WATER - 50 ML IVPB SCH (23:04)
[2023-11-21] MEDS ORDERED: GABAPENTIN 100 MG CAPSULE ONE (23:13)
[2023-11-21] MEDS ORDERED: CARVEDILOL 25 MG TABLET (FP) ONE (23:13)
[2023-11-21] MEDS ORDERED: HEPARIN NA (PORCINE) 5,000 UNITS/ML 1ML VIAL ONE (23:14)
[2023-11-21] MEDS: GABAPENTIN 100 MG CAPSULE PO SCH (23:23)
[2023-11-21] MEDS: CARVEDILOL 25 MG TABLET (FP) PO SCH (23:23)
[2023-11-21] MEDS: HEPARIN NA (PORCINE) 5,000 UNITS/ML 1ML VIAL SQ SCH (23:23)
[2023-11-22] MEDS: PRIMIDONE 50 MG TABLET PO SCH (00:26)
[2023-11-22] MEDS ORDERED: PIPERACILLIN/TAZOB 2.25 GM 2.25 GM/50 ML BAG IVPB ONE ×4 (02:09→19:37)
[2023-11-22 07:42] LABS: BASO % 0.6 % (0-2.0); HEMOGLOBIN 9.3 GM/dL (11.7-16.9); LYMPH % 10.4 % (8-40); MCH 28.7 pg (25.7-33.7); MCHC 33.4 g/dl (32.0-35.9); MEAN CELL VOLUME 85.8 fl (80-96); MONO % 9.5 % (3.8-10.2); NEUT % 79.5 % (42.8-82.8); PLATELET COUNT 173 10^3/uL (134-434); RBC 3.26 M/mm3 (4.00-5.60); RDW 18.6 % (11.9-15.9); WHITE BLOOD COUNT 5.9 K/mm3 (4.0-10.0)
[2023-11-22 07:57] LABS: CHLORIDE 102 mmol/L (98-107); POTASSIUM 4.6 mmol/L (3.5-5.1); SODIUM 143 mmol/L (136-145)
[2023-11-22 08:03] LABS: ALBUMIN 2.2 g/dl (3.4-5.0); ANION GAP 12 mmol/L (4-13); CO2 29 mmol/L (21-32); GLUCOSE,RANDOM 94 mg/dL (74-106)
[2023-11-22 08:05] LABS: CREATININE 6.9 mg/dL (0.55-1.3); SGPT/ALT 15 U/L (13-61)
[2023-11-22 08:06] LABS: BILIRUBIN,TOTAL 0.6 mg/dL (0.2-1); SGOT/AST 11 U/L (15-37); TOT PROT 5.9 g/dl (6.4-8.2)
[2023-11-22 08:08] LABS: ALK PHOS 132 U/L (45-117)
[2023-11-22 08:10] LABS: BLOOD UREA NITROGEN 44.4 mg/dL (7-18); CALCIUM 6.2 mg/dL (8.5-10.1)
[2023-11-22] MEDS: TAMSULOSIN HCL 0.4 MG CAP PO SCH (09:10)
[2023-11-22] MEDS: CALCIUM ACETATE 667 MG CAPSULE (FP) PO SCH (09:10)
[2023-11-22] MEDS: FUROSEMIDE 40 MG/4 ML INJECTABLE VIAL IVPUSH SCH (09:51)
[2023-11-22] MEDS: CALCITRIOL 0.25 MCG CAPSULE (FP) PO SCH (14:17)
[2023-11-22] MEDS ORDERED: TAMSULOSIN HCL 0.4 MG CAP ONE (19:49)
[2023-11-24 08:25] LABS: CHLORIDE 101 mmol/L (98-107); POTASSIUM 5.5 mmol/L (3.5-5.1); SODIUM 140 mmol/L (136-145)
[2023-11-24 08:27] LABS: ALBUMIN 2.1 g/dl (3.4-5.0); ANION GAP 16 mmol/L (4-13); CO2 23 mmol/L (21-32); GLUCOSE,RANDOM 81 mg/dL (74-106)
[2023-11-24 08:30] LABS: SGPT/ALT 37 U/L (13-61)
[2023-11-24 08:31] LABS: SGOT/AST 48 U/L (15-37)
[2023-11-24 08:32] LABS: BILIRUBIN,TOTAL 0.6 mg/dL (0.2-1); TOT PROT 5.9 g/dl (6.4-8.2)
[2023-11-24 08:34] LABS: ALK PHOS 325 U/L (45-117); BLOOD UREA NITROGEN 78.9 mg/dL (7-18); CALCIUM 5.4 mg/dL (8.5-10.1); CREATININE 10.2 mg/dL (0.55-1.3)
[2023-11-24] MEDS ORDERED: SODIUM CHLORIDE 250 ML IV PRN (10:08)
[2023-11-24 10:56] LABS: BASO % 1.2 % (0-2.0); EOS % 3.2 % (0-4.5); HEMATOCRIT 27.1 % (35.4-49); HEMOGLOBIN 8.7 GM/dL (11.7-16.9); LYMPH % 15.7 % (8-40); MCH 28.1 pg (25.7-33.7); MCHC 32.1 g/dl (32.0-35.9); MEAN CELL VOLUME 87.6 fl (80-96); MEAN PLT VOLUME 7.9 fl (7.5-11.1); MONO % 6.5 % (3.8-10.2); NEUT % 73.4 % (42.8-82.8); PLATELET COUNT 160 10^3/uL (134-434); RBC 3.09 M/mm3 (4.00-5.60); WHITE BLOOD COUNT 4.4 K/mm3 (4.0-10.0)
[2023-11-24] MEDS: EPOETIN ALFA-EPBX 10,000 UNIT/ML VIAL IVPUSH ONE (11:23)
[2023-11-24] MEDS: EPOETIN ALFA-EPBX 4,000 UNIT/ML VIAL IVPUSH ONE (11:37)
[2023-11-24] MEDS: CEFTRIAXONE 1 GM in DEXTROSE 5%-WATER - 50 ML IVPB SCH (16:02)
[2023-11-25] MEDS ORDERED: SODIUM CHLORIDE 250 ML IV PRN (11:54)
[2023-11-25] MEDS: AMOX TR/POT CLAV 500MG/125MG TABLETS (FP) PO SCH (17:18)
[2023-11-25] MEDS: PRIMIDONE 50 MG TABLET PO SCH (18:23)
[2023-11-26] MEDS: EPOETIN ALFA-EPBX 10,000 UNIT/ML VIAL IVPUSH ONE (10:22)
[2023-11-26 10:45] LABS: HEMATOCRIT 27.1 % (35.4-49); HEMOGLOBIN 8.9 GM/dL (11.7-16.9); MCH 28.3 pg (25.7-33.7); MCHC 32.8 g/dl (32.0-35.9); MEAN CELL VOLUME 86.1 fl (80-96); MEAN PLT VOLUME 7.6 fl (7.5-11.1); PLATELET COUNT 172 10^3/uL (134-434); RBC 3.14 M/mm3 (4.00-5.60); RDW 18.4 % (11.9-15.9); WHITE BLOOD COUNT 4.5 K/mm3 (4.0-10.0)
[2023-11-26 11:04] LABS: CHLORIDE 103 mmol/L (98-107); SODIUM 141 mmol/L (136-145)
[2023-11-26 11:06] LABS: ANION GAP 7 mmol/L (4-13); BLOOD UREA NITROGEN 63.2 mg/dL (7-18); CO2 31 mmol/L (21-32); GLUCOSE,RANDOM 132 mg/dL (74-106)
[2023-11-26 11:09] LABS: CALCIUM 5.9 mg/dL (8.5-10.1); CREATININE 8.5 mg/dL (0.55-1.3)
[2023-11-26 13:26] VITALS: BMI 27.1
[2023-11-27] MEDS: CALCIUM 500MG/VIT-D 200 UNITS COMBO TABLET (FP) PO SCH (18:04)
[2023-11-28 06:30] VITALS: TEMP 98.6
[2023-11-28] MEDS ORDERED: SODIUM CHLORIDE 250 ML IV PRN (09:34)
[2023-11-28 10:25] LABS: HEMOGLOBIN 8.7 GM/dL (11.7-16.9); MCH 27.8 pg (25.7-33.7); MCHC 32.3 g/dl (32.0-35.9); MEAN PLT VOLUME 7.7 fl (7.5-11.1); PLATELET COUNT 188 10^3/uL (134-434); RBC 3.14 M/mm3 (4.00-5.60); RDW 17.9 % (11.9-15.9); WHITE BLOOD COUNT 5.2 K/mm3 (4.0-10.0)
[2023-11-28] MEDS: EPOETIN ALFA-EPBX 10,000 UNIT/ML VIAL SQ ONE (10:34)
[2023-11-28 10:39] LABS: CHLORIDE 102 mmol/L (98-107); POTASSIUM 4.5 mmol/L (3.5-5.1); SODIUM 141 mmol/L (136-145)
[2023-11-28 10:42] LABS: ALBUMIN 2.2 g/dl (3.4-5.0); ANION GAP 9 mmol/L (4-13); BLOOD UREA NITROGEN 59.8 mg/dL (7-18); CO2 31 mmol/L (21-32); GLUCOSE,RANDOM 174 mg/dL (74-106)
[2023-11-28 10:44] LABS: SGPT/ALT 17 U/L (13-61)
[2023-11-28 10:45] LABS: SGOT/AST 13 U/L (15-37)
[2023-11-28 10:46] LABS: BILIRUBIN,TOTAL 0.5 mg/dL (0.2-1); TOT PROT 5.8 g/dl (6.4-8.2)
[2023-11-28 10:49] LABS: ALK PHOS 245 U/L (45-117); CALCIUM 6.8 mg/dL (8.5-10.1)
[2023-11-28 10:58] VITALS: PULSE 60; RESP 18
[2023-11-28 13:03] VITALS: BP 145/78
[2023-11-28] MEDS: FUROSEMIDE 40 MG TABLET (FP) PO SCH (14:02)
== END 2023-11-28 18:31 | disposition home or self-care (01) | DRG 689 ==
LOC: JER 12:07 → JERBED 15:57 → J4S 11-22 22:40
PROVIDERS: ADMIT Internal Medicine; ATTEND Internal Medicine
PROC: 5A1D70Z Performance of Urinary Filtration, Intermittent, Less than 6 Hours Per Day (ICD-10-PCS; principal; 2023-11-28)
DX: N39.0 Urinary tract infection, site not specified (principal); G93.41 Metabolic encephalopathy; N18.6 End stage renal disease; I50.33 Acute on chronic diastolic (congestive) heart failure; I13.2 Hypertensive heart and chronic kidney disease with heart failure and with stage 5 chronic kidney disease, or end stage renal disease; R53.1 Weakness; C67.9 Malignant neoplasm of bladder, unspecified; E11.22 Type 2 diabetes mellitus with diabetic chronic kidney disease; N40.0 Benign prostatic hyperplasia without lower urinary tract symptoms; Z99.2 Dependence on renal dialysis; D64.9 Anemia, unspecified
CPT/HCPCS: 0241U-QW; 36415; 70450-TC; 71045-TC-FY; 71275-TC; 80048; 80053; 82803; 82962; 83605; 83735; 83880; 84100; 84484; 85025; 85027; 85610; 85730; 87040; 87086; 87186; 93005; 93010; 93306-TC; 94761; 97116-GP; 97161-GP; 99291; J0131; J1644; Q5106; Q9967

== ENCOUNTER 2024-04-09 12:16 | Observation (INO) | payer OTHER ==
[2024-04-09 12:35] VITALS: BMI 28.1
[2024-04-09 14:37] LABS: BASO % 0.8 % (0-2.0); EOS % 5.4 % (0-4.5); HEMATOCRIT 18.2 % (35.4-49); LYMPH % 19.5 % (8-40); MCH 29.2 pg (25.7-33.7); MCHC 34.1 g/dl (32.0-35.9); MEAN CELL VOLUME 85.7 fl (80-96); MEAN PLT VOLUME 7.2 fl (7.5-11.1); MONO % 9.9 % (3.8-10.2); NEUT % 64.4 % (42.8-82.8); PLATELET COUNT 155 10^3/uL (134-434); RBC 2.12 M/mm3 (4.00-5.60); WHITE BLOOD COUNT 3.7 K/mm3 (4.0-10.0)
[2024-04-09 14:39] LABS: HEMOGLOBIN 6.2 GM/dL (11.7-16.9)
[2024-04-09 14:54] LABS: CALCIUM 9.2 mg/dL (8.5-10.1); CHLORIDE 104 mmol/L (98-107); POTASSIUM 4.7 mmol/L (3.5-5.1); SODIUM 137 mmol/L (136-145)
[2024-04-09 14:55] LABS: ANION GAP 7 mmol/L (4-13); BLOOD UREA NITROGEN 55.8 mg/dL (7-18); CO2 27 mmol/L (21-32); GLUCOSE,RANDOM 92 mg/dL (74-106)
[2024-04-09 14:58] LABS: SGOT/AST 9 U/L (15-37); SGPT/ALT 12 U/L (13-61)
[2024-04-09 15:00] LABS: BILIRUBIN,TOTAL 0.3 mg/dL (0.2-1); TOT PROT 5.9 g/dl (6.4-8.2)
[2024-04-09 15:01] LABS: ALK PHOS 72 U/L (45-117)
[2024-04-09 15:25] LABS: CREATININE 8.6 mg/dL (0.55-1.3)
[2024-04-09] MEDS ORDERED: SODIUM CHLORIDE 250 ML IV PRN (15:36)
[2024-04-09] MEDS: EPOETIN ALFA-EPBX 10,000 UNIT/ML VIAL SQ ONE (18:08)
[2024-04-09 18:12] VITALS: RESP 18; TEMP 98.4
[2024-04-09 19:23] VITALS: BP 128/58; PULSE 70
== END 2024-04-09 22:05 | disposition left against medical advice (07) ==
LOC: JER 12:16 → JERBED 17:23
PROVIDERS: ADMIT Internal Medicine; ATTEND Internal Medicine
PROC: 30233N1 Transfusion of Nonautologous Red Blood Cells into Peripheral Vein, Percutaneous Approach (ICD-10-PCS; principal; 2024-04-09)
PROC: 3E023GC Introduction of Other Therapeutic Substance into Muscle, Percutaneous Approach (ICD-10-PCS; 2024-04-09)
DX: E11.22 Type 2 diabetes mellitus with diabetic chronic kidney disease (principal); I13.2 Hypertensive heart and chronic kidney disease with heart failure and with stage 5 chronic kidney disease, or end stage renal disease; N18.6 End stage renal disease; Z99.2 Dependence on renal dialysis; R31.9 Hematuria, unspecified; N40.0 Benign prostatic hyperplasia without lower urinary tract symptoms; Z85.51 Personal history of malignant neoplasm of bladder; K62.5 Hemorrhage of anus and rectum
CPT/HCPCS: 36415; 36430; 71045-TC-FY; 80053; 85025; 86705; 86803; 86850; 86900; 86901; 86922; 87340; 96372; 99285-25; G0378; P9038; P9058; Q5106

== ENCOUNTER 2024-04-19 15:40 | Observation (INO) | payer OTHER ==
[2024-04-19 16:19] VITALS: BMI 23.5
[2024-04-19 18:18] LABS: BASO % 0.8 % (0-2.0); EOS % 4.6 % (0-4.5); LYMPH % 14.8 % (8-40); MCH 29.1 pg (25.7-33.7); MCHC 34.3 g/dl (32.0-35.9); MEAN CELL VOLUME 84.7 fl (80-96); MEAN PLT VOLUME 7.1 fl (7.5-11.1); MONO % 10.4 % (3.8-10.2); NEUT % 69.4 % (42.8-82.8); PLATELET COUNT 164 10^3/uL (134-434); RBC 2.13 M/mm3 (4.00-5.60); RDW 16.2 % (11.9-15.9); WHITE BLOOD COUNT 3.8 K/mm3 (4.0-10.0)
[2024-04-19 18:20] LABS: HEMOGLOBIN 6.2 GM/dL (11.7-16.9)
[2024-04-19 18:22] LABS: INR 1.01 (0.83-1.09); PROTHROMBIN TIME (PATIENT) 11.4 SEC (9.7-13.0)
[2024-04-19 18:25] LABS: ACTIVATED PTT 34.7 SECONDS (25.2-36.5)
[2024-04-19 18:34] LABS: POTASSIUM 4.1 mmol/L (3.5-5.1)
[2024-04-19 18:35] LABS: CALCIUM 8.2 mg/dL (8.5-10.1)
[2024-04-19 18:36] LABS: ALBUMIN 2.8 g/dl (3.4-5.0)
[2024-04-19 18:38] LABS: BLOOD UREA NITROGEN 24.5 mg/dL (7-18)
[2024-04-19 18:39] LABS: CREATININE 4.9 mg/dL (0.55-1.3)
[2024-04-19 18:42] LABS: BILIRUBIN,TOTAL 0.3 mg/dL (0.2-1); TOT PROT 5.9 g/dl (6.4-8.2)
[2024-04-19] MEDS ORDERED: DOCUSATE SODIUM 100 MG CAPSULE (FP) PO PRN (23:21)
[2024-04-19] MEDS ORDERED: ACETAMINOPHEN 325 MG TABLET (FP) PO PRN (23:21)
[2024-04-20 06:50] VITALS: TEMP 98.4
[2024-04-20] MEDS: CALCIUM ACETATE 667 MG CAPSULE (FP) PO SCH (08:16)
[2024-04-20] MEDS ORDERED: PRIMIDONE 50 MG TABLET PO SCH (10:00)
[2024-04-20] MEDS ORDERED: TORSEMIDE 20 MG TABLET (FP) PO SCH (10:00)
[2024-04-20 11:15] VITALS: BP 168/58; PULSE 93; RESP 17
[2024-04-20] MEDS ORDERED: SODIUM CHLORIDE 250 ML IV PRN (13:03)
== END 2024-04-20 10:30 | disposition left against medical advice (07) ==
LOC: JER 15:40 → JERBED 22:50
PROVIDERS: ADMIT Internal Medicine; ATTEND Internal Medicine
PROC: 30233N1 Transfusion of Nonautologous Red Blood Cells into Peripheral Vein, Percutaneous Approach (ICD-10-PCS; principal; 2024-04-19)
DX: D50.0 Iron deficiency anemia secondary to blood loss (chronic) (principal); E11.22 Type 2 diabetes mellitus with diabetic chronic kidney disease; I13.2 Hypertensive heart and chronic kidney disease with heart failure and with stage 5 chronic kidney disease, or end stage renal disease; N18.6 End stage renal disease; Z99.2 Dependence on renal dialysis; N40.0 Benign prostatic hyperplasia without lower urinary tract symptoms; Z85.51 Personal history of malignant neoplasm of bladder; Z90.79 Acquired absence of other genital organ(s)
CPT/HCPCS: 36415; 36430; 74176-TC; 80053; 85025; 85610; 85730; 86850; 86900; 86901; 86922; 93005; 93010; 99285-25; G0378; P9058

== ENCOUNTER 2024-06-24 12:14 | Inpatient (IN) | payer OTHER ==
[2024-06-24 14:35] LABS: BASO % 0.7 % (0-2.0); EOS % 0.6 % (0-4.5); HEMATOCRIT 24.8 % (35.4-49); HEMOGLOBIN 8.1 GM/dL (11.7-16.9); LYMPH % 14.6 % (8-40); MCH 26.3 pg (25.7-33.7); MCHC 32.7 g/dl (32.0-35.9); MEAN CELL VOLUME 80.2 fl (80-96); MEAN PLT VOLUME 6.9 fl (7.5-11.1); MONO % 9.7 % (3.8-10.2); NEUT % 74.4 % (42.8-82.8); PLATELET COUNT 156 10^3/uL (134-434); RDW 17.8 % (11.9-15.9); WHITE BLOOD COUNT 5.6 K/mm3 (4.0-10.0)
[2024-06-24 14:41] LABS: INR 1.05 (0.83-1.09); PROTHROMBIN TIME (PATIENT) 12.1 SEC (9.7-13.0)
[2024-06-24 14:44] LABS: ACTIVATED PTT 32.5 SECONDS (25.2-36.5)
[2024-06-24 14:56] LABS: POTASSIUM 4.2 mmol/L (3.5-5.1)
[2024-06-24 14:58] LABS: BLOOD UREA NITROGEN 38.4 mg/dL (7-18)
[2024-06-24 15:01] LABS: CREATININE 6.6 mg/dL (0.55-1.3)
[2024-06-24 15:03] LABS: BILIRUBIN,TOTAL 0.3 mg/dL (0.2-1); TOT PROT 6.2 g/dl (6.4-8.2)
[2024-06-24] MEDS ORDERED: HEPARIN NA (PORCINE) 5,000 UNITS/ML 1ML VIAL ONE (15:49)
[2024-06-24] MEDS ORDERED: HEPARIN INFUSION - 25,000 UNITS/500 ML INFUS.BAG IVPB ONE (15:54)
[2024-06-24] MEDS: HEPARIN NA (PORCINE) 5,000 UNITS/ML 1ML VIAL IVPUSH ONE (15:58)
[2024-06-24] MEDS ORDERED: HEPARIN - 25,000 UNIT in SODIUM CHLORIDE 495 ML IV SCH (16:00)
[2024-06-24] MEDS: HEPARIN SOD,PORK IN 0.45% NACL 25,000 UNITS/500 ML INFUS.BAG IVPB SCH (16:35)
[2024-06-24] MEDS: HEPARIN INFUSION - 25,000 UNITS/500 ML INFUS.BAG IVPB SCH (17:50)
[2024-06-24] MEDS: CALCIUM ACETATE 667 MG CAPSULE (FP) PO SCH (17:52)
[2024-06-24] MEDS: FUROSEMIDE 40 MG/4 ML INJECTABLE VIAL IVPUSH SCH (18:53)
[2024-06-24] MEDS: FUROSEMIDE 40 MG/4 ML INJECTABLE VIAL IVPUSH ONE (18:55)
[2024-06-24] MEDS: TAMSULOSIN HCL 0.4 MG CAP PO SCH (21:46)
[2024-06-24] MEDS: GABAPENTIN 100 MG CAPSULE PO SCH (21:46)
[2024-06-24] MEDS: CARVEDILOL 25 MG TABLET (FP) PO SCH (21:46)
[2024-06-25] MEDS: PRIMIDONE 50 MG TABLET PO SCH (00:12)
[2024-06-25 05:19] LABS: EOS % 0.4 % (0-4.5); HEMATOCRIT 21.8 % (35.4-49); LYMPH % 17.1 % (8-40); MCH 25.8 pg (25.7-33.7); MEAN CELL VOLUME 80.7 fl (80-96); MONO % 9.4 % (3.8-10.2); NEUT % 72.1 % (42.8-82.8); PLATELET COUNT 143 10^3/uL (134-434); RDW 17.2 % (11.9-15.9); WHITE BLOOD COUNT 4.9 K/mm3 (4.0-10.0)
[2024-06-25 05:39] LABS: CHLORIDE 107 mmol/L (98-107); POTASSIUM 4.8 mmol/L (3.5-5.1); SODIUM 139 mmol/L (136-145)
[2024-06-25 05:41] LABS: ALBUMIN 2.6 g/dl (3.4-5.0); ANION GAP 7 mmol/L (4-13); BLOOD UREA NITROGEN 50.2 mg/dL (7-18); CALCIUM 8.7 mg/dL (8.5-10.1); CO2 25 mmol/L (21-32); GLUCOSE,RANDOM 94 mg/dL (74-106)
[2024-06-25 05:45] LABS: SGOT/AST 11 U/L (15-37); SGPT/ALT 13 U/L (13-61)
[2024-06-25 05:46] LABS: BILIRUBIN,TOTAL 0.3 mg/dL (0.2-1); TOT PROT 5.4 g/dl (6.4-8.2)
[2024-06-25 05:47] LABS: ALK PHOS 95 U/L (45-117)
[2024-06-25 05:54] LABS: CREATININE 7.6 mg/dL (0.55-1.3)
[2024-06-25 11:06] LABS: HEMATOCRIT 22.4 % (35.4-49); HEMOGLOBIN 7.1 GM/dL (11.7-16.9); MCH 25.8 pg (25.7-33.7); MCHC 31.7 g/dl (32.0-35.9); MEAN CELL VOLUME 81.3 fl (80-96); MEAN PLT VOLUME 7.2 fl (7.5-11.1); PLATELET COUNT 135 10^3/uL (134-434); RBC 2.75 M/mm3 (4.00-5.60); RDW 17.8 % (11.9-15.9); WHITE BLOOD COUNT 4.5 K/mm3 (4.0-10.0)
[2024-06-25] MEDS: TORSEMIDE 20 MG TABLET (FP) PO SCH (12:27)
[2024-06-25] MEDS: ENOXAPARIN NA (PORCINE) 80 MG/0.8 ML DISP.SYRIN SQ ONE (12:35)
[2024-06-25] MEDS: amLODIPine BESYLATE 5 MG TABLET (FP) PO SCH (12:36)
[2024-06-25] MEDS: ENOXAPARIN NA (PORCINE) 80 MG/0.8 ML DISP.SYRIN SQ SCH (12:36)
[2024-06-25 13:07] VITALS: BMI 26.9
[2024-06-25] MEDS: EPOETIN ALFA-EPBX 10,000 UNIT/ML VIAL SQ ONE (17:55)
[2024-06-25] MEDS ORDERED: SODIUM CHLORIDE 250 ML IV PRN (18:46)
[2024-06-25] MEDS ORDERED: ALBUMIN HUMAN 25% 12.5 GM/50 ML VIAL IV SCH (19:00)
[2024-06-26 09:58] LABS: BASO % 1.1 % (0-2.0); EOS % 1.4 % (0-4.5); HEMATOCRIT 26.1 % (35.4-49); HEMOGLOBIN 8.6 GM/dL (11.7-16.9); LYMPH % 14.7 % (8-40); MCH 26.3 pg (25.7-33.7); MCHC 32.8 g/dl (32.0-35.9); MEAN CELL VOLUME 80.2 fl (80-96); MEAN PLT VOLUME 7.1 fl (7.5-11.1); MONO % 9.8 % (3.8-10.2); PLATELET COUNT 158 10^3/uL (134-434); RBC 3.25 M/mm3 (4.00-5.60); RDW 16.7 % (11.9-15.9); WHITE BLOOD COUNT 5.6 K/mm3 (4.0-10.0)
[2024-06-26 09:59] LABS: POTASSIUM 4.4 mmol/L (3.5-5.1)
[2024-06-26 10:04] LABS: ALBUMIN 2.7 g/dl (3.4-5.0); BLOOD UREA NITROGEN 37.3 mg/dL (7-18); CALCIUM 8.6 mg/dL (8.5-10.1)
[2024-06-26 10:07] LABS: CREATININE 6.2 mg/dL (0.55-1.3)
[2024-06-26 10:09] LABS: BILIRUBIN,TOTAL 0.7 mg/dL (0.2-1); TOT PROT 5.7 g/dl (6.4-8.2)
[2024-06-26 14:23] VITALS: RESP 18
[2024-06-27] MEDS ORDERED: SODIUM CHLORIDE 250 ML IV PRN (11:24)
[2024-06-27 13:23] VITALS: BP 114/46; PULSE 56; TEMP 97.6
[2024-06-28] MEDS ORDERED: EPOETIN ALFA-EPBX 10,000 UNIT/ML VIAL SQ ONE (11:24)
== END 2024-06-27 14:39 | disposition home or self-care (01) | DRG 299 ==
LOC: JER 12:14 → JERBED 15:30 → J5S 16:43
PROVIDERS: ADMIT Internal Medicine; ATTEND Internal Medicine
PROC: 5A1D70Z Performance of Urinary Filtration, Intermittent, Less than 6 Hours Per Day (ICD-10-PCS; principal; 2024-06-25)
DX: I82.412 Acute embolism and thrombosis of left femoral vein (principal); N18.6 End stage renal disease; I13.2 Hypertensive heart and chronic kidney disease with heart failure and with stage 5 chronic kidney disease, or end stage renal disease; N13.4 Hydroureter; I50.32 Chronic diastolic (congestive) heart failure; N13.30 Unspecified hydronephrosis; N40.0 Benign prostatic hyperplasia without lower urinary tract symptoms; C67.9 Malignant neoplasm of bladder, unspecified; E11.22 Type 2 diabetes mellitus with diabetic chronic kidney disease; Z99.2 Dependence on renal dialysis
CPT/HCPCS: 36415; 36430; 71045-TC-FY; 80053; 83880; 84484; 85025; 85027; 85610; 85730; 86850; 86900; 86901; 86922; 87340; 93005; 93010; 93306-TC; 93971; 99285-25; J1644; P9058; Q5106

== ENCOUNTER 2024-07-09 16:44 | Inpatient (IN) | payer OTHER ==
[2024-07-09 16:56] VITALS: BMI 29.0
[2024-07-09 18:27] LABS: INR 0.99 (0.83-1.09); PROTHROMBIN TIME (PATIENT) 11.2 SEC (9.7-13.0)
[2024-07-09 18:30] LABS: ACTIVATED PTT 18.6 SECONDS (25.2-36.5)
[2024-07-09 18:34] LABS: HEMATOCRIT 23.8 % (35.4-49); HEMOGLOBIN 7.8 GM/dL (11.7-16.9); MCH 26.1 pg (25.7-33.7); MCHC 32.5 g/dl (32.0-35.9); MEAN CELL VOLUME 80.4 fl (80-96); MEAN PLT VOLUME 7.4 fl (7.5-11.1); PLATELET COUNT 216 10^3/uL (134-434); RBC 2.97 M/mm3 (4.00-5.60); WHITE BLOOD COUNT 6.6 K/mm3 (4.0-10.0)
[2024-07-09 18:38] LABS: POTASSIUM 4.2 mmol/L (3.5-5.1)
[2024-07-09 18:40] LABS: CALCIUM 8.9 mg/dL (8.5-10.1)
[2024-07-09 18:41] LABS: ALBUMIN 3.2 g/dl (3.4-5.0); BLOOD UREA NITROGEN 21.6 mg/dL (7-18)
[2024-07-09] MEDS ORDERED: PIPERACILLIN/TAZOB 4.5 GM 4.5 GM/100 ML BAG IVPB ONE (18:41)
[2024-07-09 18:44] LABS: CREATININE 4.4 mg/dL (0.55-1.3)
[2024-07-09 18:45] LABS: BILIRUBIN,TOTAL 0.2 mg/dL (0.2-1)
[2024-07-09 18:46] LABS: TOT PROT 6.9 g/dl (6.4-8.2)
[2024-07-09] MEDS: PIPERACILLIN/TAZOB 4.5 GM 4.5 GM in DEXTROSE 5%-WATER 100 ML IVPB ONE (18:49)
[2024-07-09 19:10] LABS: LACTIC ACID 2.5 mmol/L (0.4-2.0)
[2024-07-09 19:20] LABS: ANISOCYTOSIS 0; MACROCYTOSIS 0
[2024-07-09] MEDS ORDERED: VANCOMYCIN 1 GRAM (PRE-DOCKED) 1,000 MG/250 ML BAG IVPB ONE (19:25)
[2024-07-09] MEDS: VANCOMYCIN 1 GM PREMIX (F) 1 GM/200 ML BAG IVPB ONE (19:50)
[2024-07-09] MEDS: SODIUM CHLORIDE 0.9% 500 ML INFUS.BAG IV ONE (19:50)
[2024-07-09] MEDS ORDERED: DOCUSATE SODIUM 100 MG CAPSULE (FP) PO PRN (20:21)
[2024-07-10] MEDS ORDERED: PIPERACILLIN/TAZOB 2.25 GM 2.25 GM/50 ML BAG IVPB ONE ×2 (01:33→10:26)
[2024-07-10] MEDS: PIPERACILLIN/TAZOB 2.25 GM 2.25 GM in DEXTROSE 5%-WATER - 50 ML IVPB SCH (01:44)
[2024-07-10] MEDS ORDERED: PIPERACILLIN/TAZOB 2.25 GM 2.25 GM in DEXTROSE 5%-WATER - 50 ML IVPB SCH (02:00)
[2024-07-10 07:48] LABS: POTASSIUM 4.5 mmol/L (3.5-5.1)
[2024-07-10 07:52] LABS: CALCIUM 8.4 mg/dL (8.5-10.1)
[2024-07-10 07:53] LABS: BLOOD UREA NITROGEN 29.3 mg/dL (7-18)
[2024-07-10 07:56] LABS: CREATININE 5.7 mg/dL (0.55-1.3)
[2024-07-10 08:35] LABS: BASO % 1.1 % (0-2.0); EOS % 0.4 % (0-4.5); HEMATOCRIT 21.1 % (35.4-49); LYMPH % 11.6 % (8-40); MCH 26.1 pg (25.7-33.7); MCHC 32.5 g/dl (32.0-35.9); MEAN CELL VOLUME 80.2 fl (80-96); MONO % 9.3 % (3.8-10.2); NEUT % 77.6 % (42.8-82.8); PLATELET COUNT 182 10^3/uL (134-434); RBC 2.63 M/mm3 (4.00-5.60); RDW 17.6 % (11.9-15.9); WHITE BLOOD COUNT 5.1 K/mm3 (4.0-10.0)
[2024-07-10 08:47] LABS: HEMOGLOBIN 6.9 GM/dL (11.7-16.9)
[2024-07-10] MEDS: CALCIUM ACETATE 667 MG CAPSULE (FP) PO SCH (10:55)
[2024-07-10] MEDS: PRIMIDONE 50 MG TABLET PO SCH (10:55)
[2024-07-10] MEDS: CARVEDILOL 25 MG TABLET (FP) PO SCH (21:16)
[2024-07-10] MEDS: TAMSULOSIN HCL 0.4 MG CAP PO SCH (21:16)
[2024-07-11 08:51] LABS: EOS % 0.4 % (0-4.5); HEMATOCRIT 24.2 % (35.4-49); HEMOGLOBIN 7.8 GM/dL (11.7-16.9); LYMPH % 10.8 % (8-40); MCHC 32.4 g/dl (32.0-35.9); MEAN CELL VOLUME 80.1 fl (80-96); MEAN PLT VOLUME 7.3 fl (7.5-11.1); MONO % 9.1 % (3.8-10.2); NEUT % 78.7 % (42.8-82.8); PLATELET COUNT 167 10^3/uL (134-434); RBC 3.02 M/mm3 (4.00-5.60); RDW 16.5 % (11.9-15.9); WHITE BLOOD COUNT 5.6 K/mm3 (4.0-10.0)
[2024-07-11 08:53] LABS: CHLORIDE 101 mmol/L (98-107); POTASSIUM 5.2 mmol/L (3.5-5.1); SODIUM 138 mmol/L (136-145)
[2024-07-11 08:57] LABS: ALBUMIN 2.6 g/dl (3.4-5.0)
[2024-07-11 08:58] LABS: CALCIUM 9.1 mg/dL (8.5-10.1); GLUCOSE,RANDOM 89 mg/dL (74-106)
[2024-07-11 08:59] LABS: ANION GAP 8 mmol/L (4-13); BLOOD UREA NITROGEN 42.9 mg/dL (7-18); CO2 28 mmol/L (21-32)
[2024-07-11 09:01] LABS: SGOT/AST 7 U/L (15-37); SGPT/ALT 12 U/L (13-61)
[2024-07-11 09:02] LABS: BILIRUBIN,TOTAL 0.6 mg/dL (0.2-1); CREATININE 8.3 mg/dL (0.55-1.3); TOT PROT 5.5 g/dl (6.4-8.2)
[2024-07-11 09:04] LABS: ALK PHOS 90 U/L (45-117)
[2024-07-11] MEDS: amLODIPine BESYLATE 5 MG TABLET (FP) PO SCH (09:25)
[2024-07-11] MEDS ORDERED: EPOETIN ALFA-EPBX 10,000 UNIT/ML VIAL SQ ONE (10:42)
[2024-07-11] MEDS ORDERED: ALBUMIN HUMAN 25% 12.5 GM/50 ML VIAL IV SCH (10:45)
[2024-07-11 12:31] VITALS: TEMP 98.5
[2024-07-11] MEDS ORDERED: SODIUM CHLORIDE 250 ML IV PRN (12:35)
[2024-07-11] MEDS: ALBUMIN HUMAN 25% 12.5 GM/50 ML VIAL IV SCH (13:00)
[2024-07-11] MEDS: ACETAMINOPHEN 325 MG TABLET (FP) PO PRN (13:21)
[2024-07-11] MEDS: EPOETIN ALFA-EPBX 10,000 UNIT, EPOETIN ALFA-EPBX 2,000 UNIT SQ ONE (13:45)
[2024-07-11 15:18] VITALS: BP 113/54; PULSE 60; RESP 18
[2024-07-11] MEDS ORDERED: PIPERACILLIN/TAZOB 2.25 GM 2.25 GM/50 ML BAG IVPB SCH (18:00)
[2024-07-11] MEDS ORDERED: GABAPENTIN 100 MG CAPSULE PO SCH (22:00)
[2024-07-12] MEDS ORDERED: TORSEMIDE 20 MG TABLET (FP) PO SCH (10:00)
== END 2024-07-11 17:12 | disposition left against medical advice (07) | DRG 686 ==
LOC: JER 16:44 → JERBED 20:20 → J4W 07-10 11:38
PROVIDERS: ADMIT Internal Medicine; ATTEND Internal Medicine
PROC: 5A1D70Z Performance of Urinary Filtration, Intermittent, Less than 6 Hours Per Day (ICD-10-PCS; principal; 2024-07-11)
DX: C67.9 Malignant neoplasm of bladder, unspecified (principal); R42 Dizziness and giddiness; N18.6 End stage renal disease; I13.2 Hypertensive heart and chronic kidney disease with heart failure and with stage 5 chronic kidney disease, or end stage renal disease; I82.4Z2 Acute embolism and thrombosis of unspecified deep veins of left distal lower extremity; N40.0 Benign prostatic hyperplasia without lower urinary tract symptoms; D63.8 Anemia in other chronic diseases classified elsewhere; L08.89 Other specified local infections of the skin and subcutaneous tissue; E88.09 Other disorders of plasma-protein metabolism, not elsewhere classified; E11.22 Type 2 diabetes mellitus with diabetic chronic kidney disease; C61 Malignant neoplasm of prostate; I50.9 Heart failure, unspecified; Z99.2 Dependence on renal dialysis
CPT/HCPCS: 36415; 36430; 80048; 80053; 82962; 83605; 83735; 84439; 84443; 84484; 85025; 85610; 85730; 86850; 86900; 86901; 86922; 87040; 93005; 93010; 99285-25; P9047; P9058; Q5106

== ENCOUNTER 2024-08-19 21:26 | Inpatient (IN) | payer OTHER ==
[2024-08-19 21:47] VITALS: BMI 30.7
[2024-08-19 23:27] LABS: EOS % 6.3 % (0-4.5); HEMATOCRIT 15.6 % (35.4-49); LYMPH % 12.1 % (8-40); MCH 28.8 pg (25.7-33.7); MCHC 33.2 g/dl (32.0-35.9); MEAN CELL VOLUME 86.7 fl (80-96); MEAN PLT VOLUME 7.2 fl (7.5-11.1); NEUT % 73.6 % (42.8-82.8); PLATELET COUNT 251 10^3/uL (134-434); RDW 17.8 % (11.9-15.9); WHITE BLOOD COUNT 6.1 K/mm3 (4.0-10.0)
[2024-08-19 23:30] LABS: HEMOGLOBIN 5.2 GM/dL (11.7-16.9)
[2024-08-19 23:34] LABS: INR 0.94 (0.83-1.09); PROTHROMBIN TIME (PATIENT) 10.8 SEC (9.7-13.0)
[2024-08-19 23:37] LABS: ACTIVATED PTT 18.2 SECONDS (25.2-36.5)
[2024-08-19 23:45] LABS: POTASSIUM 4.5 mmol/L (3.5-5.1)
[2024-08-19 23:47] LABS: ALBUMIN 2.9 g/dl (3.4-5.0); BLOOD UREA NITROGEN 25.8 mg/dL (7-18); CALCIUM 8.4 mg/dL (8.5-10.1)
[2024-08-19 23:51] LABS: CREATININE 5.3 mg/dL (0.55-1.3)
[2024-08-19 23:52] LABS: BILIRUBIN,TOTAL 0.3 mg/dL (0.2-1)
[2024-08-20 06:39] LABS: BASO % 1.1 % (0-2.0); EOS % 8.5 % (0-4.5); HEMATOCRIT 17.2 % (35.4-49); LYMPH % 16.8 % (8-40); MCH 29.2 pg (25.7-33.7); MCHC 33.9 g/dl (32.0-35.9); MEAN CELL VOLUME 86.3 fl (80-96); MONO % 10.4 % (3.8-10.2); NEUT % 63.2 % (42.8-82.8); PLATELET COUNT 192 10^3/uL (134-434); RDW 17.2 % (11.9-15.9); WHITE BLOOD COUNT 5.6 K/mm3 (4.0-10.0)
[2024-08-20 06:50] LABS: POTASSIUM 4.5 mmol/L (3.5-5.1)
[2024-08-20 06:52] LABS: ALBUMIN 2.7 g/dl (3.4-5.0); CALCIUM 8.2 mg/dL (8.5-10.1); MAGNESIUM 1.8 mg/dL (1.8-2.4)
[2024-08-20 06:55] LABS: CREATININE 5.8 mg/dL (0.55-1.3)
[2024-08-20 06:57] LABS: PHOSPHOROUS 2.7 mg/dL (2.5-4.9); TOT PROT 5.5 g/dl (6.4-8.2)
[2024-08-20 06:58] LABS: BILIRUBIN,TOTAL 0.4 mg/dL (0.2-1)
[2024-08-20] MEDS ORDERED: INSULIN ASPART SLIDING SCALE (NOVOLOG) 1 VIAL SQ SCH (07:00)
[2024-08-20 07:09] LABS: HEMOGLOBIN 5.8 GM/dL (11.7-16.9)
[2024-08-20 10:33] LABS: EOS % 8.9 % (0-4.5); HEMATOCRIT 16.2 % (35.4-49); LYMPH % 15.4 % (8-40); MCH 29.6 pg (25.7-33.7); MCHC 34.6 g/dl (32.0-35.9); MEAN CELL VOLUME 85.7 fl (80-96); MEAN PLT VOLUME 6.4 fl (7.5-11.1); MONO % 9.8 % (3.8-10.2); NEUT % 64.9 % (42.8-82.8); PLATELET COUNT 195 10^3/uL (134-434); RBC 1.89 M/mm3 (4.00-5.60); RDW 17.1 % (11.9-15.9); WHITE BLOOD COUNT 4.6 K/mm3 (4.0-10.0)
[2024-08-20 10:48] LABS: HEMOGLOBIN 5.6 GM/dL (11.7-16.9)
[2024-08-20 11:11] LABS: POTASSIUM 4.6 mmol/L (3.5-5.1)
[2024-08-20 11:13] LABS: ALBUMIN 2.5 g/dl (3.4-5.0); BLOOD UREA NITROGEN 34.5 mg/dL (7-18); CALCIUM 8.5 mg/dL (8.5-10.1)
[2024-08-20 11:16] LABS: CREATININE 6.1 mg/dL (0.55-1.3)
[2024-08-20 11:18] LABS: BILIRUBIN,TOTAL 0.4 mg/dL (0.2-1); TOT PROT 5.2 g/dl (6.4-8.2)
[2024-08-20] MEDS: CARVEDILOL 25 MG TABLET (FP) PO SCH (11:28)
[2024-08-20] MEDS ORDERED: FUROSEMIDE 40 MG/4 ML INJECTABLE VIAL ONE (15:58)
[2024-08-20] MEDS: FUROSEMIDE 40 MG/4 ML INJECTABLE VIAL IVPUSH ONE (16:07)
[2024-08-20] MEDS ORDERED: CARVEDILOL 25 MG TABLET (FP) ONE (22:01)
[2024-08-20 22:02] LABS: HEMATOCRIT 20.4 % (35.4-49); HEMOGLOBIN 7.1 GM/dL (11.7-16.9); MCH 29.4 pg (25.7-33.7); MCHC 34.8 g/dl (32.0-35.9); MEAN CELL VOLUME 84.5 fl (80-96); MEAN PLT VOLUME 6.7 fl (7.5-11.1); PLATELET COUNT 193 10^3/uL (134-434); RBC 2.42 M/mm3 (4.00-5.60); RDW 15.8 % (11.9-15.9); WHITE BLOOD COUNT 5.5 K/mm3 (4.0-10.0)
[2024-08-21 06:44] LABS: EOS % 10.8 % (0-4.5); HEMATOCRIT 20.4 % (35.4-49); HEMOGLOBIN 7.2 GM/dL (11.7-16.9); LYMPH % 15.6 % (8-40); MCH 29.8 pg (25.7-33.7); MCHC 35.5 g/dl (32.0-35.9); MEAN CELL VOLUME 84.1 fl (80-96); MEAN PLT VOLUME 6.7 fl (7.5-11.1); NEUT % 62.6 % (42.8-82.8); PLATELET COUNT 181 10^3/uL (134-434); RBC 2.43 M/mm3 (4.00-5.60); RDW 16.5 % (11.9-15.9); WHITE BLOOD COUNT 5.4 K/mm3 (4.0-10.0)
[2024-08-21 07:07] LABS: CHLORIDE 104 mmol/L (98-107); SODIUM 140 mmol/L (136-145)
[2024-08-21 07:17] LABS: CALCIUM 8.4 mg/dL (8.5-10.1)
[2024-08-21 07:18] LABS: ALBUMIN 2.5 g/dl (3.4-5.0); ANION GAP 7 mmol/L (4-13); BLOOD UREA NITROGEN 42.6 mg/dL (7-18); CO2 29 mmol/L (21-32); GLUCOSE,RANDOM 85 mg/dL (74-106)
[2024-08-21 07:21] LABS: SGOT/AST 13 U/L (15-37); SGPT/ALT 13 U/L (13-61)
[2024-08-21 07:23] LABS: ALK PHOS 94 U/L (45-117); BILIRUBIN,TOTAL 0.4 mg/dL (0.2-1); TOT PROT 5.1 g/dl (6.4-8.2)
[2024-08-21 07:26] LABS: CREATININE 7.8 mg/dL (0.55-1.3)
[2024-08-21] MEDS ORDERED: CARVEDILOL 25 MG TABLET (FP) ONE (10:04)
[2024-08-21] MEDS ORDERED: FUROSEMIDE 40 MG/4 ML INJECTABLE VIAL ONE (10:55)
[2024-08-21] MEDS: FUROSEMIDE 40 MG/4 ML INJECTABLE VIAL IVPUSH ONE (11:01)
[2024-08-21] MEDS ORDERED: SODIUM CHLORIDE 250 ML IV PRN (12:20)
[2024-08-21 15:47] VITALS: BP 147/61; PULSE 65; RESP 18; TEMP 98.4
== END 2024-08-21 17:40 | disposition left against medical advice (07) | DRG 686 ==
LOC: JER 21:26 → JERBED 08-20 00:36
PROVIDERS: ADMIT Internal Medicine; ATTEND Internal Medicine
PROC: 30233N1 Transfusion of Nonautologous Red Blood Cells into Peripheral Vein, Percutaneous Approach (ICD-10-PCS; principal; 2024-08-20)
DX: C67.9 Malignant neoplasm of bladder, unspecified (principal); N18.6 End stage renal disease; I13.2 Hypertensive heart and chronic kidney disease with heart failure and with stage 5 chronic kidney disease, or end stage renal disease; D64.9 Anemia, unspecified; I50.9 Heart failure, unspecified; E11.22 Type 2 diabetes mellitus with diabetic chronic kidney disease; Z99.2 Dependence on renal dialysis
CPT/HCPCS: 36415; 36430; 80053; 82378; 82728; 83540; 83550; 83735; 84100; 84484; 85025; 85027; 85045; 85610; 85730; 86705; 86803; 86922; 87340; 93005; 93010; 99285-25; P9038; P9058

== ENCOUNTER 2024-09-13 10:05 | Inpatient (IN) | payer OTHER ==
[2024-09-13 11:37] LABS: BASO % 0.7 % (0-2.0); EOS % 4.5 % (0-4.5); HEMATOCRIT 17.6 % (35.4-49); LYMPH % 11.2 % (8-40); MCH 27.5 pg (25.7-33.7); MCHC 32.4 g/dl (32.0-35.9); MEAN CELL VOLUME 84.8 fl (80-96); MONO % 11.8 % (3.8-10.2); NEUT % 71.8 % (42.8-82.8); PLATELET COUNT 190 10^3/uL (134-434); RBC 2.08 M/mm3 (4.00-5.60)
[2024-09-13 11:42] LABS: HEMOGLOBIN 5.7 GM/dL (11.7-16.9)
[2024-09-13 11:48] LABS: INR 1.05 (0.83-1.09); PROTHROMBIN TIME (PATIENT) 11.9 SEC (9.7-13.0)
[2024-09-13 11:51] LABS: ACTIVATED PTT 29.7 SECONDS (25.2-36.5)
[2024-09-13 11:58] LABS: CHLORIDE 105 mmol/L (98-107); POTASSIUM 4.8 mmol/L (3.5-5.1); SODIUM 142 mmol/L (136-145)
[2024-09-13 12:01] LABS: ALBUMIN 2.6 g/dl (3.4-5.0); ANION GAP 9 mmol/L (4-13); BLOOD UREA NITROGEN 47.9 mg/dL (7-18); CO2 28 mmol/L (21-32); GLUCOSE,RANDOM 148 mg/dL (74-106)
[2024-09-13 12:04] LABS: SGOT/AST 24 U/L (15-37); SGPT/ALT 27 U/L (13-61)
[2024-09-13 12:05] LABS: BILIRUBIN,TOTAL 0.5 mg/dL (0.2-1)
[2024-09-13 12:06] LABS: CREATININE 10.1 mg/dL (0.55-1.3); TOT PROT 5.5 g/dl (6.4-8.2)
[2024-09-13 12:07] LABS: ALK PHOS 136 U/L (45-117)
[2024-09-13] MEDS ORDERED: SODIUM CHLORIDE 250 ML IV PRN (14:45)
[2024-09-13 17:00] VITALS: BMI 29.6
[2024-09-13 19:35] VITALS: RESP 18
[2024-09-13] MEDS: CARVEDILOL 25 MG TABLET (FP) PO SCH (22:25)
[2024-09-13] MEDS: PRIMIDONE 50 MG TABLET PO SCH (22:26)
[2024-09-13] MEDS: GABAPENTIN 100 MG CAPSULE PO SCH (22:26)
[2024-09-13] MEDS: TAMSULOSIN HCL 0.4 MG CAP PO SCH (22:26)
[2024-09-14] MEDS: PANTOPRAZOLE 40 MG TABLET PO SCH (09:19)
[2024-09-14] MEDS: CALCIUM ACETATE 667 MG CAPSULE (FP) PO SCH (09:19)
[2024-09-14 10:05] LABS: BASO % 0.8 % (0-2.0); EOS % 2.8 % (0-4.5); HEMATOCRIT 20.6 % (35.4-49); LYMPH % 15.5 % (8-40); MCH 27.7 pg (25.7-33.7); MCHC 32.6 g/dl (32.0-35.9); MEAN CELL VOLUME 84.8 fl (80-96); MONO % 15.4 % (3.8-10.2); NEUT % 65.5 % (42.8-82.8); PLATELET COUNT 173 10^3/uL (134-434); RBC 2.43 M/mm3 (4.00-5.60); RDW 16.6 % (11.9-15.9); WHITE BLOOD COUNT 3.9 K/mm3 (4.0-10.0)
[2024-09-14 10:19] LABS: HEMOGLOBIN 6.7 GM/dL (11.7-16.9)
[2024-09-14] MEDS: TORSEMIDE 20 MG TABLET (FP) PO SCH (10:30)
[2024-09-14 10:31] LABS: POTASSIUM 4.3 mmol/L (3.5-5.1)
[2024-09-14] MEDS: amLODIPine BESYLATE 5 MG TABLET (FP) PO SCH (10:31)
[2024-09-14 10:51] LABS: CALCIUM 8.6 mg/dL (8.5-10.1)
[2024-09-14 10:52] LABS: ALBUMIN 2.5 g/dl (3.4-5.0); BLOOD UREA NITROGEN 30.2 mg/dL (7-18)
[2024-09-14 10:55] LABS: CREATININE 6.7 mg/dL (0.55-1.3)
[2024-09-14 10:57] LABS: TOT PROT 5.2 g/dl (6.4-8.2)
[2024-09-14] MEDS ORDERED: SODIUM CHLORIDE 250 ML IV PRN (12:40)
[2024-09-15 09:24] LABS: EOS % 2.9 % (0-4.5); HEMATOCRIT 23.4 % (35.4-49); LYMPH % 15.1 % (8-40); MCH 28.5 pg (25.7-33.7); MCHC 34.2 g/dl (32.0-35.9); MEAN CELL VOLUME 83.4 fl (80-96); MEAN PLT VOLUME 6.9 fl (7.5-11.1); MONO % 12.8 % (3.8-10.2); NEUT % 68.2 % (42.8-82.8); PLATELET COUNT 160 10^3/uL (134-434); RBC 2.81 M/mm3 (4.00-5.60); RDW 16.7 % (11.9-15.9); WHITE BLOOD COUNT 3.9 K/mm3 (4.0-10.0)
[2024-09-15 09:47] LABS: CHLORIDE 104 mmol/L (98-107); POTASSIUM 4.8 mmol/L (3.5-5.1); SODIUM 140 mmol/L (136-145)
[2024-09-15 09:51] LABS: CALCIUM 8.9 mg/dL (8.5-10.1)
[2024-09-15 09:52] LABS: ALBUMIN 2.5 g/dl (3.4-5.0); ANION GAP 5 mmol/L (4-13); BLOOD UREA NITROGEN 46.6 mg/dL (7-18); CO2 30 mmol/L (21-32); GLUCOSE,RANDOM 84 mg/dL (74-106)
[2024-09-15 09:53] LABS: SGPT/ALT 21 U/L (13-61)
[2024-09-15 09:55] LABS: BILIRUBIN,TOTAL 1.2 mg/dL (0.2-1); SGOT/AST 20 U/L (15-37); TOT PROT 5.2 g/dl (6.4-8.2)
[2024-09-15 09:56] LABS: ALK PHOS 140 U/L (45-117)
[2024-09-15] MEDS: EPOETIN ALFA-EPBX 10,000 UNIT/ML VIAL SQ ONE (12:22)
[2024-09-15 13:39] VITALS: BP 113/44; PULSE 63; TEMP 97.7
== END 2024-09-15 14:23 | disposition left against medical advice (07) | DRG 291 ==
LOC: JER 10:05 → JERBED 12:57 → OBSVTOIN 12:57 → J5S 16:01
PROVIDERS: ADMIT Internal Medicine; ATTEND Internal Medicine
PROC: 30233N1 Transfusion of Nonautologous Red Blood Cells into Peripheral Vein, Percutaneous Approach (ICD-10-PCS; 2024-09-13)
PROC: 5A1D70Z Performance of Urinary Filtration, Intermittent, Less than 6 Hours Per Day (ICD-10-PCS; principal; 2024-09-15)
DX: I13.2 Hypertensive heart and chronic kidney disease with heart failure and with stage 5 chronic kidney disease, or end stage renal disease (principal); N18.6 End stage renal disease; Z99.2 Dependence on renal dialysis; E11.22 Type 2 diabetes mellitus with diabetic chronic kidney disease; D63.1 Anemia in chronic kidney disease; I50.9 Heart failure, unspecified; N40.0 Benign prostatic hyperplasia without lower urinary tract symptoms
CPT/HCPCS: 0241U-QW; 36415; 36430; 71045-TC-FY; 80053; 82962; 84484; 85025; 85610; 85730; 86850; 86900; 86901; 86922; 93005; 93010; 99285-25; P9038; P9058; Q5106

== ENCOUNTER 2024-09-22 16:45 | Emergency (ER) | payer OTHER ==
[2024-09-22 17:04] VITALS: BP 141/59; PULSE 76; RESP 19; TEMP 97.8; BMI 28.0
[2024-09-22 18:08] LABS: BASO % 0.4 % (0-2.0); HEMATOCRIT 23.3 % (35.4-49); HEMOGLOBIN 7.7 GM/dL (11.7-16.9); LYMPH % 10.8 % (8-40); MCHC 33.2 g/dl (32.0-35.9); MEAN CELL VOLUME 84.3 fl (80-96); MEAN PLT VOLUME 7.2 fl (7.5-11.1); NEUT % 80.8 % (42.8-82.8); PLATELET COUNT 241 10^3/uL (134-434); RBC 2.76 M/mm3 (4.00-5.60); RDW 17.2 % (11.9-15.9); WHITE BLOOD COUNT 5.9 K/mm3 (4.0-10.0)
[2024-09-22 18:18] LABS: INR 1.01 (0.83-1.09); PROTHROMBIN TIME (PATIENT) 11.6 SEC (9.7-13.0)
[2024-09-22 18:34] LABS: CHLORIDE 99 mmol/L (98-107); POTASSIUM 4.8 mmol/L (3.5-5.1); SODIUM 140 mmol/L (136-145)
[2024-09-22 18:36] LABS: CALCIUM 9.4 mg/dL (8.5-10.1)
[2024-09-22 18:37] LABS: ALBUMIN 2.9 g/dl (3.4-5.0); ANION GAP 12 mmol/L (4-13); BLOOD UREA NITROGEN 49.3 mg/dL (7-18); CO2 29 mmol/L (21-32); GLUCOSE,RANDOM 116 mg/dL (74-106)
[2024-09-22 18:40] LABS: SGOT/AST 11 U/L (15-37); SGPT/ALT 13 U/L (13-61)
[2024-09-22 18:41] LABS: BILIRUBIN,TOTAL 0.4 mg/dL (0.2-1); TOT PROT 6.1 g/dl (6.4-8.2)
[2024-09-22 18:43] LABS: ALK PHOS 154 U/L (45-117)
[2024-09-22 18:46] LABS: CREATININE 8.4 mg/dL (0.55-1.3)
[2024-09-22 19:31] LABS: HIV INTERPRETATION NEGATIVE (NEGATIVE)
== END 2024-09-22 21:00 | disposition home or self-care (01) ==
LOC: JER 16:45
DX: S31.103A Unspecified open wound of abdominal wall, right lower quadrant without penetration into peritoneal cavity, initial encounter (principal); C67.9 Malignant neoplasm of bladder, unspecified; D63.0 Anemia in neoplastic disease; R42 Dizziness and giddiness; X58.XXXA Exposure to other specified factors, initial encounter
CPT/HCPCS: 36415; 80053; 85025; 85610; 86803; 86850; 86900; 86901; 87389; 93005; 93010; 99284-25

== ENCOUNTER 2024-10-06 18:50 | Inpatient (IN) | payer OTHER ==
[2024-10-06 19:21] VITALS: BMI 30.5
[2024-10-06 20:18] LABS: BASO % 0.4 % (0-2.0); HEMATOCRIT 16.8 % (35.4-49); LYMPH % 7.6 % (8-40); MCHC 33.1 g/dl (32.0-35.9); MEAN CELL VOLUME 84.6 fl (80-96); MEAN PLT VOLUME 7.5 fl (7.5-11.1); MONO % 8.9 % (3.8-10.2); NEUT % 83.1 % (42.8-82.8); PLATELET COUNT 141 10^3/uL (134-434); RBC 1.98 M/mm3 (4.00-5.60); RDW 16.6 % (11.9-15.9); WHITE BLOOD COUNT 6.4 K/mm3 (4.0-10.0)
[2024-10-06 20:22] LABS: HEMOGLOBIN 5.6 GM/dL (11.7-16.9)
[2024-10-06 20:27] LABS: INR 1.09 (0.83-1.09); PROTHROMBIN TIME (PATIENT) 11.9 SEC (9.7-13.0)
[2024-10-06 20:30] LABS: ACTIVATED PTT 26.8 SECONDS (25.2-36.5)
[2024-10-06 20:58] LABS: ALBUMIN 2.5 g/dl (3.4-5.0); CALCIUM 8.5 mg/dL (8.5-10.1); MAGNESIUM 1.9 mg/dL (1.8-2.4)
[2024-10-06 21:01] LABS: CREATININE 5.1 mg/dL (0.55-1.3)
[2024-10-06 21:02] LABS: BILIRUBIN,TOTAL 0.4 mg/dL (0.2-1); PHOSPHOROUS 3.5 mg/dL (2.5-4.9); TOT PROT 5.4 g/dl (6.4-8.2)
[2024-10-06] MEDS ORDERED: ACETAMINOPHEN INJECTION 100 ML ONE (21:26)
[2024-10-06] MEDS: ACETAMINOPHEN 1000 MG/100 ML BAG IVPB ONE (21:29)
[2024-10-07 08:52] LABS: BASO % 0.4 % (0-2.0); EOS % 0.8 % (0-4.5); HEMATOCRIT 20.3 % (35.4-49); LYMPH % 8.6 % (8-40); MCH 29.2 pg (25.7-33.7); MCHC 34.3 g/dl (32.0-35.9); MEAN CELL VOLUME 85.3 fl (80-96); MEAN PLT VOLUME 7.3 fl (7.5-11.1); MONO % 10.1 % (3.8-10.2); NEUT % 80.1 % (42.8-82.8); PLATELET COUNT 151 10^3/uL (134-434); RBC 2.38 M/mm3 (4.00-5.60); RDW 15.8 % (11.9-15.9); WHITE BLOOD COUNT 5.7 K/mm3 (4.0-10.0)
[2024-10-07 08:56] LABS: HEMOGLOBIN 6.9 GM/dL (11.7-16.9)
[2024-10-07 09:05] LABS: POTASSIUM 4.2 mmol/L (3.5-5.1)
[2024-10-07 09:08] LABS: BLOOD UREA NITROGEN 34.7 mg/dL (7-18); CALCIUM 8.3 mg/dL (8.5-10.1)
[2024-10-07] MEDS: CALCIUM ACETATE 667 MG CAPSULE (FP) PO SCH (11:13)
[2024-10-08] MEDS ORDERED: SODIUM CHLORIDE 250 ML IV PRN (07:49)
[2024-10-08 09:07] LABS: HEMOGLOBIN 7.4 GM/dL (11.7-16.9); MCH 28.5 pg (25.7-33.7); MCHC 33.8 g/dl (32.0-35.9); MEAN CELL VOLUME 84.2 fl (80-96); MEAN PLT VOLUME 6.9 fl (7.5-11.1); PLATELET COUNT 166 10^3/uL (134-434); RBC 2.61 M/mm3 (4.00-5.60); RDW 15.8 % (11.9-15.9); WHITE BLOOD COUNT 6.6 K/mm3 (4.0-10.0)
[2024-10-08 09:22] LABS: BLOOD UREA NITROGEN 46.9 mg/dL (7-18); CALCIUM 8.4 mg/dL (8.5-10.1); CO2 27 mmol/L (21-32); GLUCOSE,RANDOM 88 mg/dL (74-106)
[2024-10-08 09:35] LABS: CREATININE 7.8 mg/dL (0.55-1.3)
[2024-10-08 09:42] LABS: ANION GAP 8 mmol/L (4-13); CHLORIDE 104 mmol/L (98-107); POTASSIUM 4.4 mmol/L (3.5-5.1); SODIUM 140 mmol/L (136-145)
[2024-10-08] MEDS: EPOETIN ALFA-EPBX 20,000 UNIT/ML VIAL SQ ONE (10:52)
[2024-10-08] MEDS ORDERED: LIDOCAINE HCL 1%, 10 MG/ML (20ML VIAL) ONE (12:44)
[2024-10-08] MEDS: MICROFIBRILLAR COLLAGEN 1 GM EACH TP ONE (13:44)
[2024-10-08] MEDS: LIDOCAINE 1%-EPI 1:100,000 30 ML MDV IJ ONE (13:44)
[2024-10-08] MEDS: oxyCODONE HCL 5 MG TABLET PO ONE (14:00)
[2024-10-08 17:20] LABS: HEMATOCRIT 20.5 % (35.4-49); MCH 28.4 pg (25.7-33.7); MCHC 33.8 g/dl (32.0-35.9); MEAN CELL VOLUME 84.1 fl (80-96); MEAN PLT VOLUME 6.8 fl (7.5-11.1); PLATELET COUNT 147 10^3/uL (134-434); RBC 2.44 M/mm3 (4.00-5.60); WHITE BLOOD COUNT 7.5 K/mm3 (4.0-10.0)
[2024-10-08 17:34] LABS: HEMOGLOBIN 6.9 GM/dL (11.7-16.9)
[2024-10-08 17:38] LABS: INR 1.17 (0.83-1.09); PROTHROMBIN TIME (PATIENT) 12.7 SEC (9.7-13.0)
[2024-10-08 17:57] LABS: POTASSIUM 3.8 mmol/L (3.5-5.1)
[2024-10-08 17:59] LABS: CALCIUM 7.9 mg/dL (8.5-10.1)
[2024-10-08 18:00] LABS: ALBUMIN 2.3 g/dl (3.4-5.0)
[2024-10-08 18:02] LABS: BLOOD UREA NITROGEN 21.4 mg/dL (7-18)
[2024-10-08 18:03] LABS: CREATININE 4.6 mg/dL (0.55-1.3)
[2024-10-08 18:04] LABS: BILIRUBIN,TOTAL 0.6 mg/dL (0.2-1)
[2024-10-08 18:05] LABS: TOT PROT 4.8 g/dl (6.4-8.2)
[2024-10-09 12:02] LABS: BASO % 0.5 % (0-2.0); EOS % 1.8 % (0-4.5); HEMATOCRIT 22.8 % (35.4-49); HEMOGLOBIN 7.6 GM/dL (11.7-16.9); MCH 28.6 pg (25.7-33.7); MCHC 33.2 g/dl (32.0-35.9); MEAN CELL VOLUME 86.2 fl (80-96); MEAN PLT VOLUME 7.5 fl (7.5-11.1); MONO % 8.3 % (3.8-10.2); NEUT % 81.4 % (42.8-82.8); PLATELET COUNT 149 10^3/uL (134-434); RBC 2.64 M/mm3 (4.00-5.60); RDW 16.1 % (11.9-15.9); WHITE BLOOD COUNT 7.1 K/mm3 (4.0-10.0)
[2024-10-09 12:20] LABS: POTASSIUM 3.9 mmol/L (3.5-5.1)
[2024-10-09 12:24] LABS: ALBUMIN 2.4 g/dl (3.4-5.0); BLOOD UREA NITROGEN 27.9 mg/dL (7-18); CALCIUM 8.4 mg/dL (8.5-10.1)
[2024-10-09 12:27] LABS: CREATININE 6.3 mg/dL (0.55-1.3)
[2024-10-09 12:28] LABS: BILIRUBIN,TOTAL 0.8 mg/dL (0.2-1)
[2024-10-10 08:15] LABS: BASO % 0.4 % (0-2.0); EOS % 3.4 % (0-4.5); HEMATOCRIT 22.1 % (35.4-49); HEMOGLOBIN 7.5 GM/dL (11.7-16.9); LYMPH % 7.4 % (8-40); MCH 28.8 pg (25.7-33.7); MCHC 33.9 g/dl (32.0-35.9); MEAN CELL VOLUME 84.7 fl (80-96); MEAN PLT VOLUME 7.3 fl (7.5-11.1); MONO % 8.8 % (3.8-10.2); PLATELET COUNT 151 10^3/uL (134-434); RBC 2.61 M/mm3 (4.00-5.60); RDW 15.8 % (11.9-15.9); WHITE BLOOD COUNT 7.2 K/mm3 (4.0-10.0)
[2024-10-10 08:35] LABS: CHLORIDE 102 mmol/L (98-107); POTASSIUM 4.2 mmol/L (3.5-5.1); SODIUM 138 mmol/L (136-145)
[2024-10-10 09:00] LABS: CALCIUM 8.6 mg/dL (8.5-10.1)
[2024-10-10 09:01] LABS: ALBUMIN 2.3 g/dl (3.4-5.0); ANION GAP 7 mmol/L (4-13); BLOOD UREA NITROGEN 38.7 mg/dL (7-18); CO2 29 mmol/L (21-32); GLUCOSE,RANDOM 101 mg/dL (74-106)
[2024-10-10 09:04] LABS: SGOT/AST 24 U/L (15-37); SGPT/ALT 16 U/L (13-61)
[2024-10-10 09:05] LABS: BILIRUBIN,TOTAL 0.8 mg/dL (0.2-1); TOT PROT 4.8 g/dl (6.4-8.2)
[2024-10-10 09:06] LABS: CREATININE 8.1 mg/dL (0.55-1.3)
[2024-10-10 09:07] LABS: ALK PHOS 134 U/L (45-117)
[2024-10-10] MEDS: ACETAMINOPHEN 325 MG TABLET (FP) PO PRN (09:58)
[2024-10-11 07:30] LABS: HEMATOCRIT 22.9 % (35.4-49); HEMOGLOBIN 7.8 GM/dL (11.7-16.9); MCH 28.9 pg (25.7-33.7); PLATELET COUNT 162 10^3/uL (134-434); RDW 15.5 % (11.9-15.9); WHITE BLOOD COUNT 7.7 K/mm3 (4.0-10.0)
[2024-10-11 07:43] LABS: CHLORIDE 104 mmol/L (98-107); POTASSIUM 4.6 mmol/L (3.5-5.1); SODIUM 138 mmol/L (136-145)
[2024-10-11 07:50] LABS: CALCIUM 8.2 mg/dL (8.5-10.1)
[2024-10-11 07:51] LABS: ALBUMIN 2.1 g/dl (3.4-5.0); ANION GAP 6 mmol/L (4-13); BLOOD UREA NITROGEN 46.5 mg/dL (7-18); CO2 28 mmol/L (21-32); GLUCOSE,RANDOM 97 mg/dL (74-106); SGOT/AST 24 U/L (15-37); SGPT/ALT 17 U/L (13-61)
[2024-10-11 07:53] LABS: TOT PROT 4.7 g/dl (6.4-8.2)
[2024-10-11 07:54] LABS: ALK PHOS 154 U/L (45-117)
[2024-10-11 07:58] LABS: CREATININE 9.7 mg/dL (0.55-1.3)
[2024-10-11] MEDS ORDERED: SODIUM CHLORIDE 250 ML IV PRN (10:00)
[2024-10-11 10:32] VITALS: RESP 18
[2024-10-11] MEDS: EPOETIN ALFA-EPBX 10,000 UNIT/ML VIAL SQ ONE (12:22)
[2024-10-12 08:51] LABS: HEMATOCRIT 27.7 % (35.4-49); HEMOGLOBIN 9.3 GM/dL (11.7-16.9); MCH 28.7 pg (25.7-33.7); MCHC 33.7 g/dl (32.0-35.9); MEAN CELL VOLUME 85.2 fl (80-96); MEAN PLT VOLUME 7.1 fl (7.5-11.1); PLATELET COUNT 169 10^3/uL (134-434); RBC 3.25 M/mm3 (4.00-5.60); RDW 15.6 % (11.9-15.9); WHITE BLOOD COUNT 5.3 K/mm3 (4.0-10.0)
[2024-10-12 09:19] LABS: ALBUMIN 2.2 g/dl (3.4-5.0); BLOOD UREA NITROGEN 29.4 mg/dL (7-18); CALCIUM 8.6 mg/dL (8.5-10.1)
[2024-10-12 09:23] LABS: BILIRUBIN,TOTAL 1.3 mg/dL (0.2-1); TOT PROT 4.9 g/dl (6.4-8.2)
[2024-10-12 11:16] LABS: ANISOCYTOSIS 1+; MACROCYTOSIS 0; OVALOCYTE 1+
[2024-10-12 15:44] VITALS: BP 114/53; PULSE 65; TEMP 98.1
== END 2024-10-12 16:50 | disposition home health service (06) | DRG 686 ==
LOC: JER 18:50 → JERBED 23:02 → J8W 10-07 00:45 → OBSVTOIN 10-07 09:52 → J8W 10-08 12:10
PROVIDERS: ADMIT Student in an Organized Health Care Education/Training Program; ATTEND Internal Medicine
PROC: 05HD33Z Insertion of Infusion Device into Right Cephalic Vein, Percutaneous Approach (ICD-10-PCS; principal; 2024-10-08)
PROC: B54MZZA Ultrasonography of Right Upper Extremity Veins, Guidance (ICD-10-PCS; 2024-10-08)
PROC: 30233N1 Transfusion of Nonautologous Red Blood Cells into Peripheral Vein, Percutaneous Approach (ICD-10-PCS; 2024-10-08)
PROC: 5A1D70Z Performance of Urinary Filtration, Intermittent, Less than 6 Hours Per Day (ICD-10-PCS; 2024-10-08)
PROC: 5A1D70Z Performance of Urinary Filtration, Intermittent, Less than 6 Hours Per Day (ICD-10-PCS; 2024-10-08)
DX: C67.9 Malignant neoplasm of bladder, unspecified (principal); N18.6 End stage renal disease; I13.2 Hypertensive heart and chronic kidney disease with heart failure and with stage 5 chronic kidney disease, or end stage renal disease; N40.0 Benign prostatic hyperplasia without lower urinary tract symptoms; E11.22 Type 2 diabetes mellitus with diabetic chronic kidney disease; I50.9 Heart failure, unspecified; R29.810 Facial weakness; D64.9 Anemia, unspecified; E88.09 Other disorders of plasma-protein metabolism, not elsewhere classified; S31.109A Unspecified open wound of abdominal wall, unspecified quadrant without penetration into peritoneal cavity, initial encounter; X58.XXXA Exposure to other specified factors, initial encounter; Y93.9 Activity, unspecified; Y92.9 Unspecified place or not applicable; Y99.9 Unspecified external cause status; Z99.2 Dependence on renal dialysis; Z86.718 Personal history of other venous thrombosis and embolism
CPT/HCPCS: 36415; 36430; 80048; 80053; 83735; 84100; 85025; 85027; 85610; 85730; 86850; 86900; 86901; 86922; 87340; 93005; 93010; 99285-25; G0378; J0131; J2597; P9038; P9058; Q5106

== ENCOUNTER 2024-11-22 15:36 | Observation (INO) | payer OTHER ==
[2024-11-22 19:05] LABS: ABSOLUTE IMMATURE GRANULOCYTES 0.03 x10^3/uL (0.0-0.031); BASOPHILS # 0.03 x10^3/uL (0.01-0.08); HEMATOCRIT 20.4 % (40.1-51.0); HEMOGLOBIN 6.3 g/dL (13.7-17.5); MCHC 30.9 g/dl (32.3-36.5); MEAN CELL VOLUME 89.1 fl (79.0-92.2); MEAN PLT VOLUME 8.3 fl (9.4-12.4); MONOCYTE # 0.56 x10^3/uL (0.30-0.82); MONOCYTE % 7.8 % (5.3-12.2); PLATELET COUNT 220 x10^3/uL (163-337); RDW 15.4 % (12.2-16.6)
[2024-11-22 19:10] LABS: POTASSIUM 3.8 mmol/L (3.5-5.1)
[2024-11-22 19:11] LABS: CALCIUM 8.9 mg/dL (8.5-10.1)
[2024-11-22 19:12] LABS: BLOOD UREA NITROGEN 25.2 mg/dL (7-18)
[2024-11-22 19:15] LABS: CREATININE 3.8 mg/dL (0.55-1.3)
[2024-11-22 19:17] LABS: BILIRUBIN,TOTAL 0.4 mg/dL (0.2-1); TOT PROT 5.7 g/dl (6.4-8.2)
[2024-11-23 08:30] LABS: POTASSIUM 4.1 mmol/L (3.5-5.1)
[2024-11-23 08:39] LABS: BLOOD UREA NITROGEN 32.7 mg/dL (7-18); CALCIUM 8.6 mg/dL (8.5-10.1)
[2024-11-23 08:41] LABS: CREATININE 4.8 mg/dL (0.55-1.3)
[2024-11-23 09:22] LABS: ABSOLUTE IMMATURE GRANULOCYTES 0.02 x10^3/uL (0.0-0.031); BASOPHILS # 0.04 x10^3/uL (0.01-0.08); HEMATOCRIT 23.2 % (40.1-51.0); HEMOGLOBIN 7.4 g/dL (13.7-17.5); MCHC 31.9 g/dl (32.3-36.5); MEAN CELL VOLUME 90.3 fl (79.0-92.2); MEAN PLT VOLUME 8.9 fl (9.4-12.4); MONOCYTE # 0.67 x10^3/uL (0.30-0.82); MONOCYTE % 9.9 % (5.3-12.2); PLATELET COUNT 230 x10^3/uL (163-337); RDW 14.7 % (12.2-16.6)
[2024-11-23] MEDS: CALCIUM ACETATE 667 MG CAPSULE (FP) PO SCH (10:21)
[2024-11-23 12:22] VITALS: BMI 29.0
[2024-11-23] MEDS ORDERED: SODIUM CHLORIDE 250 ML IV PRN (14:07)
[2024-11-23 15:01] LABS: HCV DIAGNOSTIC IN-HOUSE W/RFLX NON-REACTIVE (NONREACTIVE)
[2024-11-23] MEDS: EPOETIN ALFA-EPBX 10,000 UNIT/ML VIAL SQ ONE (15:07)
[2024-11-24 01:24] VITALS: RESP 18
[2024-11-24 07:06] VITALS: PULSE 83; TEMP 97.7
[2024-11-24 08:02] LABS: ABSOLUTE IMMATURE GRANULOCYTES 0.04 x10^3/uL (0.0-0.031); BASOPHILS # 0.02 x10^3/uL (0.01-0.08); HEMATOCRIT 25.8 % (40.1-51.0); HEMOGLOBIN 8.2 g/dL (13.7-17.5); MCHC 31.8 g/dl (32.3-36.5); MEAN CELL VOLUME 88.1 fl (79.0-92.2); MEAN PLT VOLUME 8.6 fl (9.4-12.4); MONOCYTE # 0.73 x10^3/uL (0.30-0.82); MONOCYTE % 10.2 % (5.3-12.2); PLATELET COUNT 213 x10^3/uL (163-337)
[2024-11-24 08:27] LABS: POTASSIUM 3.5 mmol/L (3.5-5.1)
[2024-11-24 08:42] LABS: BLOOD UREA NITROGEN 24.3 mg/dL (7-18)
[2024-11-24 08:43] LABS: CALCIUM 8.9 mg/dL (8.5-10.1)
[2024-11-24 08:44] LABS: ALBUMIN 1.9 g/dl (3.4-5.0)
[2024-11-24 08:47] LABS: CREATININE 3.8 mg/dL (0.55-1.3)
[2024-11-24 08:48] LABS: BILIRUBIN,TOTAL 0.6 mg/dL (0.2-1); TOT PROT 5.3 g/dl (6.4-8.2)
[2024-11-24 11:57] VITALS: BP 150/52
== END 2024-11-24 16:54 | disposition home or self-care (01) ==
LOC: JER 15:36 → JERBED 21:02 → J7W 23:23
PROVIDERS: ADMIT Hospitalist; ATTEND Internal Medicine
PROC: 3E023GC Introduction of Other Therapeutic Substance into Muscle, Percutaneous Approach (ICD-10-PCS; principal; 2024-11-22)
PROC: 30233N1 Transfusion of Nonautologous Red Blood Cells into Peripheral Vein, Percutaneous Approach (ICD-10-PCS; 2024-11-22)
DX: D64.9 Anemia, unspecified (principal); E11.22 Type 2 diabetes mellitus with diabetic chronic kidney disease; I13.2 Hypertensive heart and chronic kidney disease with heart failure and with stage 5 chronic kidney disease, or end stage renal disease; Z99.2 Dependence on renal dialysis; N18.6 End stage renal disease; C67.9 Malignant neoplasm of bladder, unspecified; I11.9 Hypertensive heart disease without heart failure; N40.0 Benign prostatic hyperplasia without lower urinary tract symptoms; Z86.718 Personal history of other venous thrombosis and embolism
CPT/HCPCS: 36415; 36430; 80048; 80053; 85025; 86803; 86850; 86900; 86901; 86922; 87340; 96372; 99285-25; G0378; P9058; Q5106

== ENCOUNTER 2025-01-02 15:13 | Inpatient (IN) | payer OTHER ==
[2025-01-02 17:10] LABS: CHLORIDE 98 mmol/L (98-107); POTASSIUM 5.9 mmol/L (3.5-5.1); SODIUM 131 mmol/L (136-145)
[2025-01-02 17:13] LABS: CALCIUM 9.7 mg/dL (8.5-10.1)
[2025-01-02 17:14] LABS: ALBUMIN 2.1 g/dl (3.4-5.0); ANION GAP 8 mmol/L (4-13); BLOOD UREA NITROGEN 54.6 mg/dL (7-18); CO2 24 mmol/L (21-32); GLUCOSE,RANDOM 112 mg/dL (74-106); MAGNESIUM 2.1 mg/dL (1.8-2.4)
[2025-01-02 17:16] LABS: PHOSPHOROUS 3.6 mg/dL (2.5-4.9)
[2025-01-02 17:17] LABS: SGOT/AST 29 U/L (15-37); SGPT/ALT 12 U/L (13-61)
[2025-01-02 17:18] LABS: BILIRUBIN,TOTAL 0.6 mg/dL (0.2-1); TOT PROT 5.9 g/dl (6.4-8.2)
[2025-01-02 17:19] LABS: ALK PHOS 314 U/L (45-117)
[2025-01-02 17:26] LABS: CREATININE 7.5 mg/dL (0.55-1.3)
[2025-01-02 17:29] LABS: ACTIVATED PTT 34.3 SECONDS (25.2-36.5); INR 1.06 (0.83-1.09); PROTHROMBIN TIME (PATIENT) 11.5 SEC (9.7-13.0)
[2025-01-02 17:39] LABS: ABSOLUTE IMMATURE GRANULOCYTES 0.03 x10^3/uL (0.0-0.031); BASOPHILS # 0.05 x10^3/uL (0.01-0.08); EOSINOPHIL % 13.4 % (0.8-7.0); EOSINOPHILS # 1.03 x10^3/uL (0.04-0.54); HEMATOCRIT 24.5 % (40.1-51.0); HEMOGLOBIN 7.9 g/dL (13.7-17.5); MCHC 32.2 g/dl (32.3-36.5); MEAN CELL VOLUME 88.4 fl (79.0-92.2); MEAN PLT VOLUME 8.6 fl (9.4-12.4); MONOCYTE # 0.57 x10^3/uL (0.30-0.82); MONOCYTE % 7.4 % (5.3-12.2); PLATELET COUNT 143 x10^3/uL (163-337); RDW 15.5 % (12.2-16.6)
[2025-01-02 18:34] LABS: POTASSIUM 5.3 mmol/L (3.5-5.1)
[2025-01-02 18:35] LABS: CALCIUM 9.3 mg/dL (8.5-10.1)
[2025-01-02 18:36] LABS: BLOOD UREA NITROGEN 55.8 mg/dL (7-18)
[2025-01-02 18:39] LABS: CREATININE 7.3 mg/dL (0.55-1.3)
[2025-01-02 20:50] LABS: ABSOLUTE IMMATURE GRANULOCYTES 0.02 x10^3/uL (0.0-0.031); BASOPHILS # 0.05 x10^3/uL (0.01-0.08); EOSINOPHIL % 14.3 % (0.8-7.0); EOSINOPHILS # 1.04 x10^3/uL (0.04-0.54); HEMATOCRIT 24.7 % (40.1-51.0); HEMOGLOBIN 8.1 g/dL (13.7-17.5); MCHC 32.8 g/dl (32.3-36.5); MEAN CELL VOLUME 87.6 fl (79.0-92.2); MEAN PLT VOLUME 8.3 fl (9.4-12.4); MONOCYTE # 0.52 x10^3/uL (0.30-0.82); MONOCYTE % 7.2 % (5.3-12.2); PLATELET COUNT 133 x10^3/uL (163-337); RDW 15.4 % (12.2-16.6)
[2025-01-03] MEDS: ACETAMINOPHEN 325 MG TABLET (FP) PO ONE ×2 (01:34→23:36)
[2025-01-03] MEDS ORDERED: SODIUM CHLORIDE 250 ML IV PRN (07:27)
[2025-01-03 09:25] LABS: ABSOLUTE IMMATURE GRANULOCYTES 0.04 x10^3/uL (0.0-0.031); BASOPHILS # 0.04 x10^3/uL (0.01-0.08); EOSINOPHIL % 19.1 % (0.8-7.0); EOSINOPHILS # 1.26 x10^3/uL (0.04-0.54); HEMATOCRIT 20.3 % (40.1-51.0); HEMOGLOBIN 6.5 g/dL (13.7-17.5); MEAN CELL VOLUME 87.1 fl (79.0-92.2); MEAN PLT VOLUME 8.9 fl (9.4-12.4); MONOCYTE # 0.45 x10^3/uL (0.30-0.82); MONOCYTE % 6.8 % (5.3-12.2); PLATELET COUNT 122 x10^3/uL (163-337); RDW 15.4 % (12.2-16.6)
[2025-01-03 10:37] LABS: ALBUMIN 1.9 g/dl (3.4-5.0); ALK PHOS 256 U/L (45-117); ANION GAP 9 mmol/L (4-13); BILIRUBIN,TOTAL 0.4 mg/dL (0.2-1); BLOOD UREA NITROGEN 61.2 mg/dL (7-18); CALCIUM 9.4 mg/dL (8.5-10.1); CHLORIDE 98 mmol/L (98-107); CO2 26 mmol/L (21-32); CREATININE 8.2 mg/dL (0.55-1.3); GLUCOSE,RANDOM 91 mg/dL (74-106); POTASSIUM 5.1 mmol/L (3.5-5.1); SGOT/AST 17 U/L (15-37); SODIUM 134 mmol/L (136-145)
[2025-01-03 10:38] LABS: SGPT/ALT 12 U/L (13-61)
[2025-01-03] MEDS: EPOETIN ALFA-EPBX 10,000 UNIT/ML VIAL SQ ONE (11:17)
[2025-01-03 14:41] LABS: HEPATITIS B SURF AG NON-MATERN NON-REACTIVE (NONREACTIVE)
[2025-01-03 15:10] LABS: HCV DIAGNOSTIC IN-HOUSE W/RFLX NON-REACTIVE (NONREACTIVE)
[2025-01-03] MEDS ORDERED: SODIUM ZIRCONIUM CYCLOSILICATE (LOKELMA) 5 GM PACKET PO ONE (17:39)
[2025-01-04] MEDS ORDERED: SODIUM CHLORIDE 250 ML IV PRN (11:31)
[2025-01-04] MEDS: ACETAMINOPHEN 1000 MG/100 ML BAG IVPB PRN (11:59)
[2025-01-04 12:07] LABS: ABSOLUTE IMMATURE GRANULOCYTES 0.05 x10^3/uL (0.0-0.031); BASOPHILS # 0.06 x10^3/uL (0.01-0.08); EOSINOPHIL % 15.1 % (0.8-7.0); EOSINOPHILS # 0.97 x10^3/uL (0.04-0.54); HEMATOCRIT 30.4 % (40.1-51.0); MCHC 32.9 g/dl (32.3-36.5); MEAN CELL VOLUME 87.6 fl (79.0-92.2); MEAN PLT VOLUME 8.4 fl (9.4-12.4); MONOCYTE # 0.44 x10^3/uL (0.30-0.82); MONOCYTE % 6.9 % (5.3-12.2); PLATELET COUNT 156 x10^3/uL (163-337); RDW 15.8 % (12.2-16.6)
[2025-01-04 12:38] LABS: POTASSIUM 4.1 mmol/L (3.5-5.1)
[2025-01-04 12:46] LABS: CALCIUM 9.7 mg/dL (8.5-10.1)
[2025-01-04 12:50] LABS: CREATININE 5.6 mg/dL (0.55-1.3)
[2025-01-04 12:52] LABS: BILIRUBIN,TOTAL 0.5 mg/dL (0.2-1)
[2025-01-04 13:00] LABS: ALBUMIN 2.3 g/dl (3.4-5.0)
[2025-01-04] MEDS: CARVEDILOL 6.25 MG TABLET (FP) PO SCH (22:22)
[2025-01-04] MEDS: PANTOPRAZOLE 40 MG TABLET PO SCH (22:46)
[2025-01-05] MEDS: NIFEdipine E.R. 30 MG TABLET PO STA (03:13)
[2025-01-05 07:12] LABS: ABSOLUTE IMMATURE GRANULOCYTES 0.07 x10^3/uL (0.0-0.031); BASOPHILS # 0.06 x10^3/uL (0.01-0.08); EOSINOPHIL % 11.8 % (0.8-7.0); EOSINOPHILS # 0.97 x10^3/uL (0.04-0.54); HEMATOCRIT 26.8 % (40.1-51.0); HEMOGLOBIN 8.6 g/dL (13.7-17.5); MCHC 32.1 g/dl (32.3-36.5); MEAN CELL VOLUME 88.2 fl (79.0-92.2); MEAN PLT VOLUME 8.6 fl (9.4-12.4); MONOCYTE % 7.3 % (5.3-12.2); PLATELET COUNT 158 x10^3/uL (163-337); RDW 15.6 % (12.2-16.6)
[2025-01-05 07:34] LABS: POTASSIUM 4.3 mmol/L (3.5-5.1)
[2025-01-05 07:40] LABS: ALBUMIN 2.1 g/dl (3.4-5.0); BLOOD UREA NITROGEN 41.8 mg/dL (7-18); CALCIUM 8.9 mg/dL (8.5-10.1)
[2025-01-05 07:43] LABS: BILIRUBIN,TOTAL 0.4 mg/dL (0.2-1); CREATININE 6.4 mg/dL (0.55-1.3); TOT PROT 5.6 g/dl (6.4-8.2)
[2025-01-05] MEDS: EPOETIN ALFA-EPBX 10,000 UNIT/ML VIAL IVPUSH ONE (12:17)
[2025-01-06] MEDS: ACETAMINOPHEN 325 MG TABLET (FP) PO ONE (04:16)
[2025-01-06 07:08] LABS: BASOPHILS # 0.05 x10^3/uL (0.01-0.08); EOSINOPHIL % 11.2 % (0.8-7.0); EOSINOPHILS # 0.94 x10^3/uL (0.04-0.54); HEMATOCRIT 27.1 % (40.1-51.0); HEMOGLOBIN 8.5 g/dL (13.7-17.5); MCHC 31.4 g/dl (32.3-36.5); MEAN CELL VOLUME 88.9 fl (79.0-92.2); MEAN PLT VOLUME 8.7 fl (9.4-12.4); MONOCYTE % 7.1 % (5.3-12.2); PLATELET COUNT 152 x10^3/uL (163-337); RDW 15.6 % (12.2-16.6)
[2025-01-06 07:31] LABS: POTASSIUM 3.7 mmol/L (3.5-5.1)
[2025-01-06 07:51] LABS: ALBUMIN 2.1 g/dl (3.4-5.0); BLOOD UREA NITROGEN 28.4 mg/dL (7-18); CALCIUM 8.8 mg/dL (8.5-10.1)
[2025-01-06 07:52] LABS: CREATININE 4.7 mg/dL (0.55-1.3)
[2025-01-06 07:54] LABS: BILIRUBIN,TOTAL 0.4 mg/dL (0.2-1); TOT PROT 5.6 g/dl (6.4-8.2)
[2025-01-06] MEDS: ACETAMINOPHEN 1000 MG/100 ML BAG IVPB PRN (11:38)
[2025-01-07] MEDS: EPOETIN ALFA-EPBX 10,000 UNIT/ML VIAL SQ ONE (09:39)
[2025-01-07] MEDS ORDERED: SODIUM CHLORIDE 250 ML IV PRN (10:00)
[2025-01-07] MEDS: hydrALAZINE HCL 20 MG/ML VIAL IVPUSH ONE (23:06)
[2025-01-08 07:11] LABS: BASOPHILS # 0.06 x10^3/uL (0.01-0.08); EOSINOPHILS # 1.28 x10^3/uL (0.04-0.54); HEMATOCRIT 27.1 % (40.1-51.0); HEMOGLOBIN 8.3 g/dL (13.7-17.5); MCHC 30.6 g/dl (32.3-36.5); MEAN CELL VOLUME 91.9 fl (79.0-92.2); MEAN PLT VOLUME 8.7 fl (9.4-12.4); MONOCYTE # 0.73 x10^3/uL (0.30-0.82); MONOCYTE % 7.4 % (5.3-12.2); PLATELET COUNT 174 x10^3/uL (163-337); RDW 16.2 % (12.2-16.6)
[2025-01-08 07:33] LABS: POTASSIUM 4.3 mmol/L (3.5-5.1)
[2025-01-08 07:35] LABS: CALCIUM 9.3 mg/dL (8.5-10.1)
[2025-01-08 07:36] LABS: ALBUMIN 1.9 g/dl (3.4-5.0); BLOOD UREA NITROGEN 33.8 mg/dL (7-18)
[2025-01-08 07:39] LABS: CREATININE 4.5 mg/dL (0.55-1.3)
[2025-01-08 07:40] LABS: BILIRUBIN,TOTAL 0.4 mg/dL (0.2-1)
[2025-01-08 07:41] LABS: TOT PROT 5.2 g/dl (6.4-8.2)
[2025-01-08 13:25] VITALS: BMI 29.5
[2025-01-09] MEDS: VITAMIN B COMP W-C 1 EA TABLET (NEPHRO-VITE) PO SCH (09:08)
[2025-01-09] MEDS: amLODIPine BESYLATE 5 MG TABLET (FP) PO SCH (13:30)
[2025-01-09 15:17] VITALS: RESP 18
[2025-01-09 17:00] VITALS: BP 118/49; PULSE 71; TEMP 97.9
== END 2025-01-09 17:09 | DRG 686 ==
LOC: JER 15:13 → JERBED 19:48 → J4S 22:39 → OBSVTOIN 01-03 10:09
PROVIDERS: ADMIT Internal Medicine; ATTEND Internal Medicine
PROC: 30233N1 Transfusion of Nonautologous Red Blood Cells into Peripheral Vein, Percutaneous Approach (ICD-10-PCS; principal; 2025-01-03)
PROC: 5A1D70Z Performance of Urinary Filtration, Intermittent, Less than 6 Hours Per Day (ICD-10-PCS; 2025-01-03)
PROC: 5A1D70Z Performance of Urinary Filtration, Intermittent, Less than 6 Hours Per Day (ICD-10-PCS; 2025-01-05)
PROC: 5A1D70Z Performance of Urinary Filtration, Intermittent, Less than 6 Hours Per Day (ICD-10-PCS; 2025-01-07)
DX: C67.9 Malignant neoplasm of bladder, unspecified (principal); N18.6 End stage renal disease; K92.2 Gastrointestinal hemorrhage, unspecified; I12.0 Hypertensive chronic kidney disease with stage 5 chronic kidney disease or end stage renal disease; I82.4Z2 Acute embolism and thrombosis of unspecified deep veins of left distal lower extremity; R19.09 Other intra-abdominal and pelvic swelling, mass and lump; N40.0 Benign prostatic hyperplasia without lower urinary tract symptoms; E87.5 Hyperkalemia; D64.9 Anemia, unspecified; E11.22 Type 2 diabetes mellitus with diabetic chronic kidney disease; L89.616 Pressure-induced deep tissue damage of right heel
CPT/HCPCS: 0241U-QW; 36415; 36430; 74174-TC; 80048; 80053; 83735; 84100; 85025; 85610; 85730; 86704; 86803; 86850; 86900; 86901; 86922; 87340; 87517; 93005; 93010; 93971-TC; 97116-GP; 97162-GP; 99285-25; G0378; J0131; P9058; Q5106; Q9967

== ENCOUNTER 2025-01-14 00:10 | Inpatient (IN) | payer OTHER ==
[2025-01-14 01:43] LABS: ABSOLUTE IMMATURE GRANULOCYTES 0.13 x10^3/uL (0.0-0.031); BASOPHILS # 0.05 x10^3/uL (0.01-0.08); EOSINOPHIL % 0.4 % (0.8-7.0); EOSINOPHILS # 0.04 x10^3/uL (0.04-0.54); HEMATOCRIT 24.5 % (40.1-51.0); HEMOGLOBIN 7.7 g/dL (13.7-17.5); MCHC 31.4 g/dl (32.3-36.5); MEAN CELL VOLUME 91.8 fl (79.0-92.2); MEAN PLT VOLUME 9.1 fl (9.4-12.4); MONOCYTE # 0.75 x10^3/uL (0.30-0.82); MONOCYTE % 6.7 % (5.3-12.2); PLATELET COUNT 200 x10^3/uL (163-337); RDW 16.9 % (12.2-16.6)
[2025-01-14 01:48] LABS: VENOUS BASE EXCESS 3.6 mmol/L (-2-2); VENOUS O2 SATURATION 62.5 % (70-80); VENOUS PCO2 41.7 mmHg (38-52); VENOUS PH 7.445 (7.310-7.410)
[2025-01-14 01:51] LABS: INR 1.28 (0.83-1.09); PROTHROMBIN TIME (PATIENT) 14.1 SEC (9.7-13.0)
[2025-01-14 01:54] LABS: ACTIVATED PTT 34.5 SECONDS (25.2-36.5)
[2025-01-14] MEDS ORDERED: PIPERACILLIN/TAZOB 4.5 GM 4.5 GM/100 ML BAG IVPB ONE (02:00)
[2025-01-14] MEDS ORDERED: VANCOMYCIN 1 GM PREMIX (F) 1 GM/200 ML BAG ONE (02:01)
[2025-01-14 02:02] LABS: POTASSIUM 4.2 mmol/L (3.5-5.1)
[2025-01-14 02:04] LABS: CALCIUM 9.4 mg/dL (8.5-10.1)
[2025-01-14 02:08] LABS: CREATININE 5.2 mg/dL (0.55-1.3)
[2025-01-14] MEDS: SODIUM CHLORIDE 500 ML IV STA (02:08)
[2025-01-14] MEDS: PIPERACILLIN/TAZOB 4.5 GM 4.5 GM in DEXTROSE 5%-WATER 100 ML IVPB ONE (02:08)
[2025-01-14 02:10] LABS: BILIRUBIN,TOTAL 0.9 mg/dL (0.2-1); TOT PROT 5.4 g/dl (6.4-8.2)
[2025-01-14] MEDS ORDERED: ACETAMINOPHEN INJECTION 100 ML ONE (02:36)
[2025-01-14] MEDS: ACETAMINOPHEN 1000 MG/100 ML BAG IVPB ONE (02:41)
[2025-01-14] MEDS: VANCOMYCIN 1,000 MG in DEXTROSE 5%-WATER - 250 ML IVPB ONE (02:42)
[2025-01-14] MEDS ORDERED: HYDROmorphone HCL CARPU-JECT 2 MG/1 ML DISP.SYRIN ONE (03:42)
[2025-01-14] MEDS: HYDROmorphone HCl 2 MG/ML VIAL IVPB ONE (03:47)
[2025-01-14] MEDS: HYDROmorphone HCL CARPU-JECT 2 MG/1 ML DISP.SYRIN IVPB ONE (04:26)
[2025-01-14] MEDS ORDERED: HYDROmorphone HCL CARPU-JECT 2 MG/1 ML DISP.SYRIN IVPB PRN (05:02)
[2025-01-14] MEDS: INSULIN ASPART SLIDING SCALE (NOVOLOG) 1 VIAL SQ SCH (06:37)
[2025-01-14] MEDS: HEPARIN NA (PORCINE) 5,000 UNITS/ML 1ML VIAL SQ SCH (06:37)
[2025-01-14 08:44] LABS: ABSOLUTE IMMATURE GRANULOCYTES 0.08 x10^3/uL (0.0-0.031); BASOPHILS # 0.04 x10^3/uL (0.01-0.08); EOSINOPHIL % 0.9 % (0.8-7.0); HEMATOCRIT 27.5 % (40.1-51.0); HEMOGLOBIN 8.4 g/dL (13.7-17.5); MCHC 30.5 g/dl (32.3-36.5); MEAN CELL VOLUME 92.9 fl (79.0-92.2); MEAN PLT VOLUME 9.2 fl (9.4-12.4); MONOCYTE # 0.32 x10^3/uL (0.30-0.82); PLATELET COUNT 189 x10^3/uL (163-337)
[2025-01-14] MEDS: CALCIUM ACETATE 667 MG CAPSULE (FP) PO SCH (08:49)
[2025-01-14] MEDS: ACETAMINOPHEN 1000 MG/100 ML BAG IVPB PRN (08:50)
[2025-01-14 09:06] LABS: POTASSIUM 4.5 mmol/L (3.5-5.1)
[2025-01-14 09:16] LABS: CALCIUM 9.7 mg/dL (8.5-10.1)
[2025-01-14 09:17] LABS: ALBUMIN 2.1 g/dl (3.4-5.0); BLOOD UREA NITROGEN 49.1 mg/dL (7-18); MAGNESIUM 1.8 mg/dL (1.8-2.4)
[2025-01-14 09:20] LABS: CREATININE 5.5 mg/dL (0.55-1.3)
[2025-01-14 09:21] LABS: PHOSPHOROUS 2.9 mg/dL (2.5-4.9)
[2025-01-14 09:22] LABS: BILIRUBIN,TOTAL 2.2 mg/dL (0.2-1); TOT PROT 5.6 g/dl (6.4-8.2)
[2025-01-14] MEDS: amLODIPine BESYLATE 5 MG TABLET (FP) PO SCH (09:31)
[2025-01-14] MEDS: PANTOPRAZOLE SODIUM 40 MG VIAL IVPUSH SCH (09:31)
[2025-01-14] MEDS: PIPERACILLIN/TAZOB 2.25 GM 2.25 GM/50 ML BAG IVPB SCH (09:31)
[2025-01-14] MEDS: CARVEDILOL 6.25 MG TABLET (FP) PO SCH (09:31)
[2025-01-14] MEDS ORDERED: ENOXAPARIN NA (PORCINE) 40 MG/0.4 ML DISP.SYRIN SQ SCH (10:00)
[2025-01-14] MEDS ORDERED: SODIUM CHLORIDE 250 ML IV PRN (13:27)
[2025-01-14] MEDS ORDERED: VANCOMYCIN 750 MG in DEXTROSE 5%-WATER - 150 ML IVPB SCH (17:00)
[2025-01-14] MEDS: VANCOMYCIN/WATER FOR INJ (PEG) 750 MG/150 ML BAG IVPB SCH (18:19)
[2025-01-14] MEDS: SENNOSIDES 8.6MG TABLET (FP) PO SCH (21:13)
[2025-01-15] MEDS ORDERED: VANCOMYCIN 750 MG in DEXTROSE 5%-WATER - 150 ML IVPB SCH (05:00)
[2025-01-15] MEDS: PANTOPRAZOLE 40 MG TABLET PO SCH (09:48)
[2025-01-15] MEDS: PIPERACILLIN/TAZOB 2.25 GM 2.25 GM/50 ML BAG IVPB SCH (10:37)
[2025-01-15 19:11] LABS: ABSOLUTE IMMATURE GRANULOCYTES 0.03 x10^3/uL (0.0-0.031); BASOPHILS # 0.02 x10^3/uL (0.01-0.08); EOSINOPHIL % 2.8 % (0.8-7.0); EOSINOPHILS # 0.15 x10^3/uL (0.04-0.54); HEMOGLOBIN 6.7 g/dL (13.7-17.5); MCHC 30.5 g/dl (32.3-36.5); MEAN CELL VOLUME 92.4 fl (79.0-92.2); MEAN PLT VOLUME 9.6 fl (9.4-12.4); MONOCYTE # 0.67 x10^3/uL (0.30-0.82); MONOCYTE % 12.3 % (5.3-12.2); PLATELET COUNT 160 x10^3/uL (163-337); RDW 17.2 % (12.2-16.6)
[2025-01-15 21:02] LABS: ABSOLUTE IMMATURE GRANULOCYTES 0.02 x10^3/uL (0.0-0.031); BASOPHILS # 0.01 x10^3/uL (0.01-0.08); HEMATOCRIT 21.4 % (40.1-51.0); HEMOGLOBIN 6.6 g/dL (13.7-17.5); MCHC 30.8 g/dl (32.3-36.5); MEAN CELL VOLUME 91.5 fl (79.0-92.2); MEAN PLT VOLUME 9.3 fl (9.4-12.4); MONOCYTE # 0.61 x10^3/uL (0.30-0.82); PLATELET COUNT 151 x10^3/uL (163-337); RDW 17.2 % (12.2-16.6)
[2025-01-16] MEDS ORDERED: VANCOMYCIN/WATER FOR INJ (PEG) 750 MG/150 ML BAG IVPB SCH (02:00)
[2025-01-16 09:10] LABS: HEMATOCRIT 25.2 % (40.1-51.0); HEMOGLOBIN 7.8 g/dL (13.7-17.5); MEAN CELL VOLUME 89.7 fl (79.0-92.2); MEAN PLT VOLUME 9.5 fl (9.4-12.4); PLATELET COUNT 170 x10^3/uL (163-337)
[2025-01-16 09:21] LABS: POTASSIUM 3.7 mmol/L (3.5-5.1)
[2025-01-16 09:30] LABS: BLOOD UREA NITROGEN 43.4 mg/dL (7-18); CALCIUM 9.4 mg/dL (8.5-10.1)
[2025-01-16 09:35] LABS: BILIRUBIN,TOTAL 1.3 mg/dL (0.2-1); TOT PROT 5.1 g/dl (6.4-8.2)
[2025-01-16 09:36] LABS: ALBUMIN 1.6 g/dl (3.4-5.0)
[2025-01-17] MEDS ORDERED: SODIUM CHLORIDE 250 ML IV PRN (10:09)
[2025-01-17 11:02] LABS: POTASSIUM 3.9 mmol/L (3.5-5.1)
[2025-01-17 11:07] LABS: ALBUMIN 1.5 g/dl (3.4-5.0); BLOOD UREA NITROGEN 54.2 mg/dL (7-18); CALCIUM 9.6 mg/dL (8.5-10.1)
[2025-01-17 11:17] LABS: HEMATOCRIT 23.3 % (40.1-51.0); HEMOGLOBIN 7.3 g/dL (13.7-17.5); MCHC 31.3 g/dl (32.3-36.5); MEAN PLT VOLUME 9.9 fl (9.4-12.4); PLATELET COUNT 165 x10^3/uL (163-337); RDW 16.9 % (12.2-16.6)
[2025-01-17] MEDS: EPOETIN ALFA-EPBX 10,000 UNIT/ML VIAL SQ ONE (11:36)
[2025-01-18 08:51] LABS: ABSOLUTE IMMATURE GRANULOCYTES 0.19 x10^3/uL (0.0-0.031); BASOPHILS # 0.03 x10^3/uL (0.01-0.08); EOSINOPHIL % 3.9 % (0.8-7.0); EOSINOPHILS # 0.51 x10^3/uL (0.04-0.54); HEMATOCRIT 24.5 % (40.1-51.0); HEMOGLOBIN 7.5 g/dL (13.7-17.5); MCHC 30.6 g/dl (32.3-36.5); MEAN CELL VOLUME 90.1 fl (79.0-92.2); MEAN PLT VOLUME 9.5 fl (9.4-12.4); MONOCYTE % 4.6 % (5.3-12.2); PLATELET COUNT 171 x10^3/uL (163-337); RDW 16.7 % (12.2-16.6)
[2025-01-18 09:15] LABS: POTASSIUM 3.3 mmol/L (3.5-5.1)
[2025-01-18 09:29] LABS: ALBUMIN 1.5 g/dl (3.4-5.0); BLOOD UREA NITROGEN 33.6 mg/dL (7-18); CALCIUM 9.5 mg/dL (8.5-10.1)
[2025-01-18 09:33] LABS: CREATININE 4.3 mg/dL (0.55-1.3)
[2025-01-18 09:34] LABS: BILIRUBIN,TOTAL 1.1 mg/dL (0.2-1)
[2025-01-18] MEDS ORDERED: SODIUM CHLORIDE 250 ML IV PRN (12:43)
[2025-01-19] MEDS: EPOETIN ALFA-EPBX 10,000 UNIT, EPOETIN ALFA-EPBX 2,000 UNIT IVPUSH ONE (10:06)
[2025-01-19 10:17] LABS: HEMATOCRIT 24.6 % (40.1-51.0); HEMOGLOBIN 7.6 g/dL (13.7-17.5); MCHC 30.9 g/dl (32.3-36.5); MEAN CELL VOLUME 90.1 fl (79.0-92.2); MEAN PLT VOLUME 9.7 fl (9.4-12.4); PLATELET COUNT 204 x10^3/uL (163-337); RDW 16.9 % (12.2-16.6)
[2025-01-19 10:35] LABS: POTASSIUM 3.5 mmol/L (3.5-5.1)
[2025-01-19 10:37] LABS: CALCIUM 9.3 mg/dL (8.5-10.1)
[2025-01-19 10:38] LABS: BLOOD UREA NITROGEN 42.3 mg/dL (7-18)
[2025-01-19 10:41] LABS: CREATININE 5.2 mg/dL (0.55-1.3)
[2025-01-19] MEDS ORDERED: EPOETIN ALFA-EPBX 10,000 UNIT/ML VIAL SQ ONE (12:43)
[2025-01-19 15:48] VITALS: BMI 32.0
[2025-01-20 08:38] LABS: POTASSIUM 3.5 mmol/L (3.5-5.1)
[2025-01-20 08:47] LABS: ALBUMIN 1.5 g/dl (3.4-5.0); CALCIUM 9.3 mg/dL (8.5-10.1)
[2025-01-20 08:48] LABS: BLOOD UREA NITROGEN 28.5 mg/dL (7-18)
[2025-01-20 08:51] LABS: CREATININE 3.9 mg/dL (0.55-1.3)
[2025-01-20 08:52] LABS: BILIRUBIN,TOTAL 0.8 mg/dL (0.2-1); TOT PROT 4.9 g/dl (6.4-8.2)
[2025-01-20 10:22] LABS: ABSOLUTE IMMATURE GRANULOCYTES 0.25 x10^3/uL (0.0-0.031); BASOPHILS # 0.04 x10^3/uL (0.01-0.08); EOSINOPHIL % 7.1 % (0.8-7.0); HEMATOCRIT 26.6 % (40.1-51.0); HEMOGLOBIN 8.1 g/dL (13.7-17.5); MCHC 30.5 g/dl (32.3-36.5); MEAN CELL VOLUME 92.4 fl (79.0-92.2); MEAN PLT VOLUME 9.1 fl (9.4-12.4); MONOCYTE # 0.56 x10^3/uL (0.30-0.82); PLATELET COUNT 222 x10^3/uL (163-337); RDW 17.1 % (12.2-16.6)
[2025-01-21 08:29] LABS: RDW 17.2 % (12.2-16.6)
[2025-01-21 08:30] LABS: ABSOLUTE IMMATURE GRANULOCYTES 0.18 x10^3/uL (0.0-0.031); BASOPHILS # 0.05 x10^3/uL (0.01-0.08); EOSINOPHIL % 9.6 % (0.8-7.0); EOSINOPHILS # 1.01 x10^3/uL (0.04-0.54); HEMATOCRIT 26.5 % (40.1-51.0); HEMOGLOBIN 8.3 g/dL (13.7-17.5); MCHC 31.3 g/dl (32.3-36.5); MEAN CELL VOLUME 91.7 fl (79.0-92.2); MEAN PLT VOLUME 9.1 fl (9.4-12.4); MONOCYTE # 0.48 x10^3/uL (0.30-0.82); MONOCYTE % 4.6 % (5.3-12.2); PLATELET COUNT 253 x10^3/uL (163-337)
[2025-01-21 08:42] LABS: POTASSIUM 3.6 mmol/L (3.5-5.1)
[2025-01-21 08:58] LABS: ALBUMIN 1.6 g/dl (3.4-5.0); CALCIUM 9.8 mg/dL (8.5-10.1)
[2025-01-21 08:59] LABS: BLOOD UREA NITROGEN 39.9 mg/dL (7-18)
[2025-01-21] MEDS ORDERED: SODIUM CHLORIDE 250 ML IV PRN (09:00)
[2025-01-21 09:01] LABS: CREATININE 4.8 mg/dL (0.55-1.3)
[2025-01-21 09:03] LABS: BILIRUBIN,TOTAL 0.8 mg/dL (0.2-1); TOT PROT 5.4 g/dl (6.4-8.2)
[2025-01-21] MEDS: EPOETIN ALFA-EPBX 10,000 UNIT/ML VIAL SQ SCH (12:06)
[2025-01-22] MEDS: AMOX TR/POT CLAV 250MG/125MG TABLETS PO SCH (18:46)
[2025-01-23] MEDS: ACETAMINOPHEN 325 MG TABLET (FP) PO PRN (00:46)
[2025-01-23] MEDS ORDERED: SODIUM CHLORIDE 250 ML IV PRN (11:40)
[2025-01-23] MEDS: oxyCODONE HCL 5 MG TABLET PO PRN (17:48)
[2025-01-24 10:04] LABS: ABSOLUTE IMMATURE GRANULOCYTES 0.08 x10^3/uL (0.0-0.031); BASOPHILS # 0.06 x10^3/uL (0.01-0.08); EOSINOPHILS # 0.85 x10^3/uL (0.04-0.54); HEMOGLOBIN 8.9 g/dL (13.7-17.5); MCHC 30.7 g/dl (32.3-36.5); MEAN CELL VOLUME 91.2 fl (79.0-92.2); MEAN PLT VOLUME 8.7 fl (9.4-12.4); MONOCYTE % 5.9 % (5.3-12.2); PLATELET COUNT 231 x10^3/uL (163-337); RDW 17.8 % (12.2-16.6)
[2025-01-24 10:23] VITALS: RESP 18
[2025-01-24 11:21] LABS: POTASSIUM 4.6 mmol/L (3.5-5.1)
[2025-01-24 11:23] LABS: CALCIUM 9.4 mg/dL (8.5-10.1)
[2025-01-24 11:24] LABS: BLOOD UREA NITROGEN 42.4 mg/dL (7-18)
[2025-01-24 11:27] LABS: CREATININE 5.6 mg/dL (0.55-1.3); POTASSIUM 4.6 mmol/L (3.5-5.1)
[2025-01-24 11:32] LABS: ALBUMIN 1.6 g/dl (3.4-5.0); CALCIUM 9.4 mg/dL (8.5-10.1)
[2025-01-24 11:36] LABS: CREATININE 5.5 mg/dL (0.55-1.3)
[2025-01-24 11:37] LABS: BILIRUBIN,TOTAL 0.6 mg/dL (0.2-1); TOT PROT 5.6 g/dl (6.4-8.2)
[2025-01-24] MEDS ORDERED: EPOETIN ALFA-EPBX 10,000 UNIT/ML VIAL SQ ONE (11:40)
[2025-01-25 14:32] VITALS: BP 145/53; PULSE 85; TEMP 98.1
== END 2025-01-25 16:46 | DRG 871 ==
LOC: JER 00:10 → JERBED 02:05 → J5S 04:34
PROVIDERS: ADMIT Hospitalist; ATTEND Internal Medicine
PROC: 5A1D70Z Performance of Urinary Filtration, Intermittent, Less than 6 Hours Per Day (ICD-10-PCS; principal; 2025-01-14)
PROC: 30233N1 Transfusion of Nonautologous Red Blood Cells into Peripheral Vein, Percutaneous Approach (ICD-10-PCS; 2025-01-15)
PROC: 5A1D70Z Performance of Urinary Filtration, Intermittent, Less than 6 Hours Per Day (ICD-10-PCS; 2025-01-17)
PROC: 5A1D70Z Performance of Urinary Filtration, Intermittent, Less than 6 Hours Per Day (ICD-10-PCS; 2025-01-19)
PROC: 5A1D70Z Performance of Urinary Filtration, Intermittent, Less than 6 Hours Per Day (ICD-10-PCS; 2025-01-21)
DX: A41.89 Other specified sepsis (principal); G93.41 Metabolic encephalopathy; R53.2 Functional quadriplegia; N18.6 End stage renal disease; L03.114 Cellulitis of left upper limb; I82.502 Chronic embolism and thrombosis of unspecified deep veins of left lower extremity; C78.5 Secondary malignant neoplasm of large intestine and rectum; I13.2 Hypertensive heart and chronic kidney disease with heart failure and with stage 5 chronic kidney disease, or end stage renal disease; I50.32 Chronic diastolic (congestive) heart failure; L97.119 Non-pressure chronic ulcer of right thigh with unspecified severity; C67.9 Malignant neoplasm of bladder, unspecified; D64.9 Anemia, unspecified; R41.82 Altered mental status, unspecified; E83.52 Hypercalcemia; N40.0 Benign prostatic hyperplasia without lower urinary tract symptoms; Z99.2 Dependence on renal dialysis
CPT/HCPCS: 0241U-QW; 36415; 36430; 70450-TC; 71045-TC-FY; 80048; 80053; 82272; 82803; 82962; 83605; 83735; 84100; 84484; 85025; 85027; 85610; 85730; 86850; 86900; 86901; 86922; 87040; 87070; 87076; 87081; 87186; 87205; 93005; 93010; 97116-GP; 97162-GP; 99285-25; J0131; J1644; P9058; Q5106